=== PATIENT | female | born 1945 | race Caucasian/White ===

== ENCOUNTER 2018-08-27 11:17 | Emergency (ER) | payer MEDICARE, OTHER, SELFPAY ==
[2018-08-27 11:53] VITALS: BP 149/77; PULSE 58; RESP 16; TEMP 37.1; O2SAT 99; BMI 22.2
--- NOTE | 2018-08-27 11:56 | DI.RAD.S_ITS ---
PROCEDURE: XR HIP W PEL IF DONE LT 2V INDICATIONS: felt a pop left hip , now non wt bearing with pain TECHNIQUE: 2 views of the hip were acquired. COMPARISON: None. FINDINGS: Bones: No fractures or dislocations. No suspicious bony lesions. The visualized pelvic ring appears intact. Mild left hip degenerative change. Soft tissues: No suspicious soft tissue calcifications or masses. IMPRESSION: No acute bony abnormality of the left hip. Mild left hip degenerative change. Dictated by: Luis Nguyen M.D. on 08/27/2018 at 12:39 Approved by: Luis Nguyen M.D. on 08/27/2018 at 12:40
--- NOTE | 2018-08-27 12:53 | ED.LOWEXIN ---
HPI - Extremity Injury (Lower) <PRECIOUS Lal - Last Filed: 08/27/18 22:28> General Chief Complaint: Extremity Injury, Lower Stated Complaint: Left hip pain and swelling Time Seen by Provider: 08/27/18 12:27 Source: patient Mode of arrival: ambulatory Limitations: no limitations History of Present Illness HPI Narrative: 73-year-old healthy female that is a nonsmoker for complaint of pain into her left hip. Patient states that she was swaying her hips last night when she felt a pop to her left hip. She reports that she has had increased pain into her left hip and some slight swelling since that timeframe. Increased pain with weight-bearing. She denies any falls. She denies any trauma to the area. Pain is limited to the left hip area. She states that she took a couple ibuprofen last night and the pain decreased last night but she woke up this morning with some increased pain and some slight swelling to the area. No other concerns or complaints at this timeframe. Related Data Allergies Allergy/AdvReac Type Severity Reaction Status Date / Time amoxicillin Allergy Verified 08/27/18 12:12 Review of Systems <PRECIOUS Lal - Last Filed: 08/27/18 22:28> Constitutional Denies chills, Denies fever(s), Denies lethargy and Denies weakness Eyes Denies change in vision, Denies eye discharge, Denies irritation and Denies loss of vision ENT Ears, Nose, Mouth, and Throat: Denies change in voice, Denies neck pain and Denies sore throat Cardiovascular Denies chest pain, Denies irregular heart rhythm, Denies lightheadedness, Denies palpitations, Denies dyspnea, Denies dyspnea on exertion and Denies orthopnea Respiratory Denies cough, Denies dyspnea, Denies dyspnea on exertion and Denies wheezing Gastrointestinal Gastrointestinal: Denies abdominal pain, Denies change in bowel habits, Denies diarrhea, Denies nausea and Denies vomiting Genitourinary Denies hematuria, Denies flank pain, Denies urinary incontinence and Denies urinary urgency Musculoskeletal Denies neck pain Comments: Left hip pain Integumentary/Breasts Denies pruritus, Denies erythema, Denies rash and Denies wounds Neurologic Denies confusion, Denies loss of vision and Denies weakness Psychiatric Denies anxiety, Denies confusion, Denies depression, Denies homicidal ideation and Denies suicidal ideation Endocrine Denies palpitations Hematologic/Lymphatic Denies easy bruising Allergic/Immunologic Denies wheezing Exam <PRECIOUS Lal - Last Filed: 08/27/18 22:28> Initial Vital Signs Initial Vital Signs: Vital Signs Temperature 98.7 F 08/27/18 11:53 Pulse Rate 58 L 08/27/18 11:53 Respiratory Rate 16 08/27/18 11:53 Blood Pressure 149/77 H 08/27/18 11:53 Pulse Oximetry 99 08/27/18 11:53 Const General: cooperative and well developed Nutritional Appearance: well nourished Orientation: alert, awake, oriented x3 and not confused [facility] Mouth: oral mucosae normal and moist mucous membranes Eyes Conjunctivae: conjunctivae normal Sclera: sclerae normal Pupils: PERRL EOM: EOM intact bilaterally Resp Effort & Inspection: normal respiratory effort, able to speak in complete sentences, no respiratory distress and no use of accessory muscles Auscultation: clear to auscultation bilaterally, no rales, no rhonchi and no wheezes Cardio Rate: regular rate Rhythm: regular rhythm Heart Sounds: no click, no gallops, no murmurs and no rubs Pulses: normal peripheral pulses Skin General: no rashes or lesions noted, No jaundice and No petechiae Neuro General: alert, oriented x3 and no focal motor deficits Speech: speech normal Extrem Other: Left hip with no signs of trauma. No ecchymosis. No swelling appreciated on exam. No erythema no open lesions. No deformities. Distal sensation is intact. Distal range of motion is intact. Distal pulses are intact. <Maribel Zamora MD - Last Filed: 08/31/18 12:18> Initial Vital Signs Initial Vital Signs: Vital Signs Temperature 98.7 F 08/27/18 11:53 Pulse Rate 58 L 08/27/18 11:53 Respiratory Rate 16 08/27/18 11:53 Blood Pressure 149/77 H 08/27/18 11:53 Pulse Oximetry 99 08/27/18 11:53 Course <PRECIOUS Lal - Last Filed: 08/27/18 22:28> Orders Ordered: ED Orders 08/27/18 11:56 XR hip w pel if done LT 2V Stat Vital Signs - 8 hr 08/27/18 11:53 Temperature 98.7 F Pulse Rate 58 L Respiratory Rate 16 Blood Pressure 149/77 H Pulse Oximetry 99 <Maribel Zamora MD - Last Filed: 08/31/18 12:18> Orders Ordered: ED Orders 08/27/18 11:56 XR hip w pel if done LT 2V Stat Vital Signs - 8 hr 08/27/18 11:53 Temperature 98.7 F Pulse Rate 58 L Respiratory Rate 16 Blood Pressure 149/77 H Pulse Oximetry 99 MDM - Extremity Injury (Lower) <PRECIOUS Lal - Last Filed: 08/27/18 22:28> Imaging Data Left hip: Radiologist's impression: [address] [address] XRay Report Signed Patient: Mireya Rai EMR#: [id number] : 6Acct:[id number] Age/Sex: 73 / FDate of Service: 08/27/18 Loc: ED Accession Number: [id number] Procedure: XR hip w pel if done LT 2V Ordering Provider: Maribel Zamora MD PROCEDURE: XR HIP W PEL IF DONE LT 2V INDICATIONS: felt a pop left hip , now non wt bearing with pain TECHNIQUE: 2 views of the hip were acquired. COMPARISON: None. FINDINGS: Bones: No fractures or dislocations. No suspicious bony lesions. The visualized pelvic ring appears intact. Mild left hip degenerative change. Soft tissues: No suspicious soft tissue calcifications or masses. IMPRESSION: No acute bony abnormality of the left hip. Mild left hip degenerative change. Dictated by: Luis Nguyen M.D. on 08/27/2018 at 12:39 Approved by: Luis Nguyen M.D. on 08/27/2018 at 12:40 [facility] Narrative Medical decision making narrative: X-ray the left hip was obtained was negative for any acute fractures. X-ray does show minor degenerative changes to the left hip. Signs and symptoms presents as sprain of the left hip. Patient is ambulatory although it does cause her discomfort. She states she is able to ambulate using a cane. [id number] Tylenol or ibuprofen as needed for any discomfort. Rest area. Follow up with primary care provider for re-evaluation. If continued pain that does not resolve may need to have MRI. For any worsening symptoms return to the emergency room. Discharge Plan Departure Patient Disposition: Home Clinical Impression: Sprain of left hip Qualifiers: Encounter type: initial encounter Qualified Code(s): S73.102A - Unspecified sprain of left hip, initial encounter Discharge Date/Time: 08/27/18 13:37 Interventions: ED Discharge Assessment Last Done: 08/27/18 13:36 Instructions: DI for Hip Pain Activity Restrictions/Additional Instructions: X-ray of the left hip was obtained was negative for any acute fractures. Signs and symptoms presents as a sprain to the left hip. Continue to use [id number] Tylenol or Motrin as needed for any discomfort. Rest area. Follow up with her primary care provider. For any worsening symptoms return to the emergency room. The pain does not resolve may need to have advanced imaging such as MRI. Referrals: Warner Rodriguez MD [Primary Care Provider] -
== END 2018-08-27 13:37 | disposition home or self-care (01) ==
PROVIDERS: Emergency Provider Nurse Practitioner Family; PCP Internal Medicine
DX: S73.102A Unspecified sprain of left hip, initial encounter (principal)
CPT/HCPCS: 73502; 99282; 99283

== ENCOUNTER → 2018-09-15 08:41 | Outpatient (CLI) | payer MEDICARE, OTHER, SELFPAY ==
[2018-09-15 11:03] LABS: Cholesterol 204 mg/dL (140-199); HDL Cholesterol 78 mg/dL (40-60); LDL Cholesterol Calculated 110 mg/dL (<100); Triglycerides 78 mg/dL (35-150)
[2018-09-15 11:04] LABS: Vitamin D 25 Hydroxy (D3) 85.9 ng/mL (30.0-100.0)
[2018-09-15 11:18] LABS: Follicle Stimulating Hormone 9.68 mIU/mL
[2018-09-15 11:35] LABS: Testosterone 66.7 ng/dL (5.71-77.0)
[2018-09-21 16:32] LABS: Estradiol 78 pg/mL
== END ==
PROVIDERS: Family Provider Internal Medicine; PCP Internal Medicine; Visit Provider Family Medicine
DX: E55.9 Vitamin D deficiency, unspecified (principal); Z13.220 Encounter for screening for lipoid disorders; N95.9 Unspecified menopausal and perimenopausal disorder
CPT/HCPCS: 36415; 80061; 82306; 82672; 83001; 84403

== ENCOUNTER → 2020-01-05 09:00 | Outpatient (CLI) | payer MEDICARE, OTHER, SELFPAY ==
[2020-01-05 11:06] LABS: Thyroid Stimulating Hormone 3.84 uIU/mL (0.47-4.68)
== END ==
PROVIDERS: Family Provider Internal Medicine; PCP Internal Medicine; Referring Provider Family Medicine; Visit Provider Family Medicine
DX: R53.83 Other fatigue (principal); M85.80 Other specified disorders of bone density and structure, unspecified site
CPT/HCPCS: 36415; 84443

== ENCOUNTER → 2020-07-15 16:06 | Outpatient (CLI) | payer MEDICARE, OTHER, SELFPAY ==
[2020-07-15] MEDS: COVID-19 VACC #1, MRNA(MOD) 100 MCG/0.5 ML VIAL IM (16:17)
== END ==
PROVIDERS: Family Provider Internal Medicine; PCP Family Medicine; Visit Provider Internal Medicine
DX: Z23 Encounter for immunization (principal)
CPT/HCPCS: 0011A; 91301

== ENCOUNTER → 2020-08-13 14:24 | Outpatient (CLI) | payer MEDICARE, OTHER, SELFPAY ==
[2020-08-13] MEDS: COVID-19 VACC #2, MRNA(MOD) 100 MCG/0.5 ML VIAL IM (14:31)
== END ==
PROVIDERS: Family Provider Internal Medicine; PCP Family Medicine; Visit Provider Internal Medicine
DX: Z23 Encounter for immunization (principal)
CPT/HCPCS: 0012A; 91301

== ENCOUNTER 2020-09-03 10:30 | Outpatient (RCR) | payer MEDICARE, OTHER, SELFPAY ==
--- NOTE | 2020-06-12 10:52 | PT.OIE ---
Current Diagnoses Mixed incontinence (06/12/20) Visit Care Team Role Provider Type Avila Prado MD Primary Care Provider Non-Staff Specialty: Family Practice Address: [address] [facility], [place], [address] Email: Warner Rodriguez MD Family Provider Physician Specialty: Internal Medicine Address: [address] [place] [address], [address] Email: [email or web address] Meredith Pinto MD Attending Provider Non-Staff Referring Provider Specialty: Medical Address: [address] [place] [address], [place], [address] Email: Physical Therapy Initial Evaluation PT-OP-A Visit Information Start: 06/12/20 08:53 Freq: Status: Active Protocol: Document 06/12/20 08:55 [facility] (Rec: 06/12/20 08:56 [facility] [id number]) Out-Patient Physical Therapy Visit Information Visit Information Visit Type Initial Evaluation Visit Start Time 09:00 Visit Stop Time 09:45 Total Visit Minutes 45 Visit Number 1 Evaluation Information Evaluation Date 06/12/20 PT-OP-B Current Condition Start: 06/12/20 08:53 Freq: Status: Active Protocol: Document 06/12/20 09:11 [facility] (Rec: 06/12/20 09:26 [facility] [id number]) Current Condition History of Current Condition Onset Date approximately 6 months ago Current Complaints pelvic organ prolapse, bladder and rectum. History of Current Condition pt has been told she is a condidate for a surgical procedure for her pelvic floor . Her second child was almost 10 pounds. She has had this issue off and on for awhile. She had a hysterectomy 5-6 years ago. Her bladder had been prolapsing prior to her surgery. After the hysterectomy her bladder seemed to move back up. She notes she will have to push her organs back up. She was doing water aerobics 3-4 times her week but can't do it now. She has been able to do yoga still and walks regularly. Once a week she will experience some leakage approx a table spoon amount. Has had constipation her whole life and has irritable bowel syndrome. She takes 1 teaspoon of calm and a probiotic. She has been able to be regular. She notes when she sits to urinate she will have to push her bladder backup. History of right knee meniscus repair. Treatment Goals Patient/Caregiver Goals To lift her bladder and rectum to lift up and to strengthen her pelvic floor. PT-OP-I Pelvic Floor Start: 06/12/20 08:53 Freq: Status: Active Protocol: Document 06/12/20 10:20 [facility] (Rec: 06/12/20 10:30 [facility] [id number]) Pelvic Floor Assessment Urine Pelvic Floor Surgery No Urinary Symptoms Falling Out Feeling/Heavy Other Urinary Symptoms minor c/o urinary stress incontinence approximately 1 xm per week. Chief complaits of pelvic organ prolapse and pealiv heaviness Leakage Size Small Leakage Cause Exercise,Lifting Pads Used In 24 Hours 1 Urine Pad Type Panty Liner Pelvic Clock Pelvic Clock 12-3 Atrophy Pelvic Clock 3-6 Atrophy Pelvic Clock 6-9 Atrophy Pelvic Clock 9-12 Atrophy Prolapse Cystocele Grade 2 Rectocele Grade 2 SEMG (uV) Baseline 0 Recruitment Pattern Fair Relaxation Good Holding Fair Stability of Hold Fair SEMG Stability of Rest Good Contraction Ability Voluntary Contraction Weak Voluntary Relaxation Weak Manual Muscle Testing Left 1 Manual Muscle Testing Right 1 Manual Muscle Testing Anterior 1 Manual Muscle Testing Posterior 2 Muscle Endurance (Seconds) 5 PT-OP-Q Treatments Start: 06/12/20 08:53 Freq: Status: Active Protocol: Document 06/12/20 10:20 [facility] (Rec: 06/12/20 10:30 [facility] [id number]) Therapeutic Exercises Supine Exercises elevate the pelvis on yoga block Supine Exercise Name pt educated on elevating the pelvis on a yoga block to take off pressure Comments pt already doing legs up the wall for HEP. pelvic floor long holds Supine Exercise Name pelvic floor long holds Side bilateral Reps/Minutes 10 reps x 10 seconds each PT-OP-T Assessment and Plan Start: 06/12/20 08:53 Freq: Status: Active Protocol: Document 06/12/20 10:20 [facility] (Rec: 06/12/20 10:30 [facility] [id number]) Physical Therapy Assessment Rehab Potential Rehabilitation Potential Excellent Evaluation Complexity Number of Personal Factors/Comorbidities 0 Number of Body Systems Impaired 1-2 Clinical Presentation at Evaluation Stable Impairments Impairments Activity Tolerance,Functional Activities,Pain,Strength,Tone Goals complaints of pelvic organ prolapse Impairment Complaints of pelvic organ prolapse, having to push her bladder back up Short Term Goal (STG) Mireya is educated on pelvic decompression exercises to take pressure off the pelvic floor STG Duration 4 weeks Upper Marker Goal (LTG) Mireya is able to continue with her walking routine without her bladder prolapsing down on her walk. LTG Duration 8 weeks Pelvic floor weakness Impairment Pelvic floor weakness Upper Marker Goal (LTG) Mireya is able to improve her strength of the levator ani by at least one muscle grade to provide improved support to her pelvic organs LTG Duration 8 weeks Decreased endurance of the pelvic floor Impairment Decreased endurance of the pelvic floor Upper Marker Goal (LTG) Mireya is able to sustain a pelvic floor contraction x 10 seconds in supine for 10 reps, LTG Duration 8 weeks Assessment Summary Assessment Mireya is a 75 year old female who presents to Physcial therapy today with c/o pelvic heaviness and pressure due to pelvic organ prolapse. She reports that she has been working on postural exercises and this seems to have helped a little in the past couple of weeks. Mireya reports her symptoms began approximately 6 months ago. She was doing aquatic exercise class regulary and then with the covid 19 pandemic she needed to stop. Mireya does have a past medical history of a hysterectomy 5-6 years ago and 2 vaginal deliveries. She reports at the time of her hysterectomy her bladder was prolapsed. It did seem to get much better though after her hysterectomy until the past 6 months. With evaluation today Mireya is able to activate all areas of her pelvic floor however she is very weak especially on the lateral villanueva of the levator ani. She has difficulty sustaining a pelvic floor contraction past 5 seconds and feels fatigued with 10 reps. She does present with a pelvic organ prolapse, today it felt like a grade 2 for both bladder and rectum. She does note as mentioned above that her symptoms have been better the past few weeks. Mireya denies any fecal incontinence and reports very mild symptoms of stress incontinence. EMG biofeedback was used today to assess pelvic floor strength and endurance. Mireya was educated on pelvic floor anatomy and proper contraction of the pelvic floor. She was also shown how to elevate her pelvis to provide decompression to the pelvic floor. Mireya is a good candidate for pelvic floor therapy. Physical Therapy Plan Frequency and Duration Frequency of Treatment 1x/Week Duration of Treatment 8 Plan of Care Start Date 06/12/20 Plan of Care End Date 08/07/20 Therapeutic Interventions Therapeutic Interventions Home Exercise Program, Neuromuscular Re-education, Patient/Caregiver Education, Self-Care/Home Management, Therapeutic Exercises Modalities Biofeedback
--- NOTE | 2020-06-12 10:52 | PT.OPPOC ---
Physical, Occupational & Speech Therapy At [facility] Current Diagnoses Mixed incontinence (06/12/20) Visit Care Team Role Provider Type Avila Prado MD Primary Care Provider Non-Staff Specialty: Family Practice Address: [address] [place] [address], [address] Email: Warner Rodriguez MD Family Provider Physician Specialty: Internal Medicine Address: [address] [place] [address], [address] Email: [email or web address] Meredith Pinto MD Attending Provider Non-Staff Referring Provider Specialty: Medical Address: [address] [place] [address], [address] Email: Plan Of Care PT-OP-T Assessment and Plan Start: 06/12/20 08:53 Freq: Status: Active Protocol: Document 06/12/20 10:20 [facility] (Rec: 06/12/20 10:30 [facility] [id number]) Physical Therapy Assessment Rehab Potential Rehabilitation Potential Excellent Evaluation Complexity Number of Personal Factors/Comorbidities 0 Number of Body Systems Impaired 1-2 Clinical Presentation at Evaluation Stable Impairments Impairments Activity Tolerance,Functional Activities,Pain,Strength,Tone Goals complaints of pelvic organ prolapse Impairment Complaints of pelvic organ prolapse, having to push her bladder back up Short Term Goal (STG) Mireya is educated on pelvic decompression exercises to take pressure off the pelvic floor STG Duration 4 weeks [employer] Goal (LTG) Mireya is able to continue with her walking routine without her bladder prolapsing down on her walk. 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 She reports that she has been working on postural exercises and this seems to have helped a little in the past couple of weeks. Mireya reports her symptoms began approximately 6 months ago. She was doing aquatic exercise class regularly and then with the covid 19 pandemic she needed to stop. Mireya does have a past medical history of a hysterectomy 5-6 years ago and 2 vaginal deliveries. She reports at the time of her hysterectomy her bladder was prolapsed. It did seem to get much better though after her hysterectomy until the past 6 months. With evaluation today Mireya is able to activate all areas of her pelvic floor however she is very weak especially on the lateral villanueva of the levator ani. She has difficulty sustaining a pelvic floor contraction past 5 seconds and feels fatigued with 10 reps. She does present with a pelvic organ prolapse, today it felt like a grade 2 for both bladder and rectum. She does note as mentioned above that her symptoms have been better the past few weeks. Mireya denies any fecal incontinence and reports very mild symptoms of stress incontinence. EMG biofeedback was used today to assess pelvic floor strength and endurance. Mireya was educated on pelvic floor anatomy and proper contraction of the pelvic floor. She was also shown how to elevate her pelvis to provide decompression to the pelvic floor. Mireya is a good candidate for pelvic floor therapy. Physical Therapy Plan Frequency and Duration Frequency of Treatment 1x/Week Duration of Treatment 8 Plan of Care Start Date 06/12/20 Plan of Care End Date 08/07/20 Therapeutic Interventions Therapeutic Interventions Home Exercise Program, Neuromuscular Re-education, Patient/Caregiver Education, Self-Care/Home Management, Therapeutic Exercises Modalities Biofeedback Plan of Care Dates Plan of Care Start Date 06/12/20 Plan of Care End Date 08/07/20 Electronically Signed by: Lorena Gaffney, PT 06/12/20 [id number] Please Sign and Return: I have reviewed this Plan of Care and certify that the skilled therapy services above are required to meet the patient?s needs. Physician Signature Date Printed Name and Credentials Clinical Instructor Signature Printed Name and Credentials
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
--- NOTE | 2020-07-03 17:42 | PT.OTN ---
Current Diagnoses Mixed incontinence (07/03/20) Physical Therapy Treatment Note PT-OP-A Visit Information Start: 06/12/20 08:53 Freq: Status: Active Protocol: Document 07/03/20 09:00 [facility] (Rec: 07/02/20 11:52 [facility] [id number]) Out-Patient Physical Therapy Visit Information Visit Information Visit Type Treatment Note Visit Start Time 09:00 Visit Stop Time 09:45 Total Visit Minutes 45 Visit Number 2 PT-OP-B Current Condition Start: 06/12/20 08:53 Freq: Status: Active Protocol: Document 06/12/20 09:11 [facility] (Rec: 06/12/20 09:26 [facility] [id number]) Current Condition History of Current Condition Onset Date approximately 6 months ago Current Complaints pelvic organ prolapse, bladder and rectum. History of Current Condition pt has been told she is a candidate for a surgical procedure for her pelvic floor . Her second child was almost 10 pounds. She has had this issue off and on for awhile. She had a hysterectomy 5-6 years ago. Her bladder had been prolapsing prior to her surgery. After the hysterectomy her bladder seemed to move back up. She notes she will have to push her organs back up. She was doing water aerobics 3-4 times her week but can't do it now. She has been able to do yoga still and walks regularly. Once a week she will experience some leakage approx a table spoon amount. Has had constipation her whole life and has irritable bowel syndrome. She takes 1 teaspoon of calm and a probiotic. She has been able to be regular. She notes when she sits to urinate she will have to push her bladder backup. History of right knee meniscus repair. Treatment Goals Patient/Caregiver Goals To lift her bladder and rectum to lift up and to strengthen her pelvic floor. PT-OP-C Subjective Start: 06/12/20 08:53 Freq: Status: Active Protocol: Document 07/03/20 09:00 [facility] (Rec: 07/02/20 11:52 [facility] [id number]) OP-PT Subjective Patient Comments Patient Comments pt says she is amazed that she is not uncomfortable any more . She did two times per day 90 percent of the time. PT-OP-I Pelvic Floor Start: 06/12/20 08:53 Freq: Status: Active Protocol: Document 06/12/20 10:20 [facility] (Rec: 06/12/20 10:30 [facility] [id number]) Pelvic Floor Assessment Urine Pelvic Floor Surgery No Urinary Symptoms Falling Out Feeling/Heavy Other Urinary Symptoms minor c/o urinary stress incontinence approximately 1 xm per week. Chief complaits of pelvic organ prolapse and pealiv heaviness Leakage Size Small Leakage Cause Exercise,Lifting Pads Used In 24 Hours 1 Urine Pad Type Panty Liner Pelvic Clock Pelvic Clock 12-3 Atrophy Pelvic Clock 3-6 Atrophy Pelvic Clock 6-9 Atrophy Pelvic Clock 9-12 Atrophy Prolapse Cystocele Grade 2 Rectocele Grade 2 SEMG (uV) Baseline 0 Recruitment Pattern Fair Relaxation Good Holding Fair Stability of Hold Fair SEMG Stability of Rest Good Contraction Ability Voluntary Contraction Weak Voluntary Relaxation Weak Manual Muscle Testing Left 1 Manual Muscle Testing Right 1 Manual Muscle Testing Anterior 1 Manual Muscle Testing Posterior 2 Muscle Endurance (Seconds) 5 PT-OP-Q Treatments Start: 06/12/20 08:53 Freq: Status: Active Protocol: Document 07/03/20 17:30 [facility] (Rec: 07/03/20 17:42 [facility] [id number]) Therapeutic Exercises Supine Exercises hip ER with theraband Supine Exercise Name hip ER with theraband Reps/Minutes x 10 reps supine ball squeeze with pelvic floor contraction Supine Exercise Name ball squeeze with pelvic floor contraction Reps/Minutes x 10 reps quick pelvic floor contractions Supine Exercise Name quick pelvic floor contractions Reps/Minutes 10 reps 2 sec each elevate the pelvis on yoga block Supine Exercise Name pt educated on elevating the pelvis on a yoga block to take off pressure Comments pt already doing legs up the wall for HEP. pelvic floor long holds Supine Exercise Name pelvic floor long holds Side bilateral Reps/Minutes 10 reps x 10 seconds each PT-OP-T Assessment and Plan Start: 06/12/20 08:53 Freq: Status: Active Protocol: Document 07/03/20 17:30 [facility] (Rec: 07/03/20 17:42 [facility] [id number]) Physical Therapy Assessment Assessment Summary Assessment Good tolerance for EMG biofeedback today for pelvic floor strengthening. Mireya did do better with addition of ball squeeze for increasing pelvic floor recruitment. She is noting decreased complaints of pelvic pressure already with just a few weeks of strengthening Physical Therapy Plan Frequency and Duration Frequency of Treatment 1x/Week Duration of Treatment 8 Plan of Care Start Date 06/12/20 Plan of Care End Date 08/07/20 Therapeutic Interventions Therapeutic Interventions Home Exercise Program, Neuromuscular Re-education, Patient/Caregiver Education, Self-Care/Home Management, Therapeutic Exercises Modalities Biofeedback Next Visit Focus/Plan Next Note Type Treatment Note Next Visit Plan work on pelvic floor endurance and begin to work on pelvic floor recruitment with sit to stand and squatting
--- NOTE | 2020-07-09 11:29 | PT.OTN ---
Current Diagnoses Mixed incontinence (07/09/20) Physical Therapy Treatment Note PT-OP-A Visit Information Start: 06/12/20 08:53 Freq: Status: Active Protocol: Document 07/09/20 09:47 [facility] (Rec: 07/09/20 09:51 [facility] [id number]) Out-Patient Physical Therapy Visit Information Visit Information Visit Type Treatment Note Visit Start Time 09:45 Visit Stop Time 10:30 Total Visit Minutes 45 Visit Number 3 PT-OP-B Current Condition Start: 06/12/20 08:53 Freq: Status: Active Protocol: Document 06/12/20 09:11 [facility] (Rec: 06/12/20 09:26 [facility] [id number]) Current Condition History of Current Condition Onset Date approximately 6 months ago Current Complaints pelvic organ prolapse, bladder and rectum. History of Current Condition pt has been told she is a condidate for a surgical procedure for her pelvic floor . Her second child was almost 10 pounds. She has had this issue off and on for awhile. She had a hysterectomy 5-6 years ago. Her bladder had been prolapsing prior to her surgery. After the hysterectomy her bladder seemed to move back up. She notes she will have to push her organs back up. She was doing water aerobics 3-4 times her week but can't do it now. She has been able to do yoga still and walks regularly. Once a week she will experience some leakage approx a table spoon amount. Has had constipation her whole life and has irritable bowel syndrome. She takes 1 teaspoon of calm and a probiotic. She has been able to be regular. She notes when she sits to urinate she will have to push her bladder backup. History of right knee meniscus repair. Treatment Goals Patient/Caregiver Goals To lift her bladder and rectum to lift up and to strengthen her pelvic floor. PT-OP-C Subjective Start: 06/12/20 08:53 Freq: Status: Active Protocol: Document 07/09/20 09:47 [facility] (Rec: 07/09/20 09:51 [facility] [id number]) OP-PT Subjective Patient Comments Patient Comments pt reports her pelvic floor is feeling good. Some days are better than others. Has been for a couple of walks. PT-OP-I Pelvic Floor Start: 06/12/20 08:53 Freq: Status: Active Protocol: Document 06/12/20 10:20 [facility] (Rec: 06/12/20 10:30 [facility] [id number]) Pelvic Floor Assessment Urine Pelvic Floor Surgery No Urinary Symptoms Falling Out Feeling/Heavy Other Urinary Symptoms minor c/o urinary stress incontinence approximately 1 xm per week. Chief complaits of pelvic organ prolapse and pealiv heaviness Leakage Size Small Leakage Cause Exercise,Lifting Pads Used In 24 Hours 1 Urine Pad Type Panty Liner Pelvic Clock Pelvic Clock 12-3 Atrophy Pelvic Clock 3-6 Atrophy Pelvic Clock 6-9 Atrophy Pelvic Clock 9-12 Atrophy Prolapse Cystocele Grade 2 Rectocele Grade 2 SEMG (uV) Baseline 0 Recruitment Pattern Fair Relaxation Good Holding Fair Stability of Hold Fair SEMG Stability of Rest Good Contraction Ability Voluntary Contraction Weak Voluntary Relaxation Weak Manual Muscle Testing Left 1 Manual Muscle Testing Right 1 Manual Muscle Testing Anterior 1 Manual Muscle Testing Posterior 2 Muscle Endurance (Seconds) 5 PT-OP-Q Treatments Start: 06/12/20 08:53 Freq: Status: Active Protocol: Document 07/09/20 11:24 [facility] (Rec: 07/09/20 11:29 [facility] [id number]) Therapeutic Exercises Supine Exercises EMG templates for eccentric control Supine Exercise Name EMG templates for eccentric control Comments pt has difficulty with eccentric control hip ER with theraband Supine Exercise Name hip ER with theraband Reps/Minutes x 20 reps supine ball squeeze with pelvic floor contraction Supine Exercise Name ball squeeze with pelvic floor contraction Reps/Minutes x 10 reps Comments with EMG quick pelvic floor contractions Supine Exercise Name quick pelvic floor contractions Reps/Minutes 10 reps 2 sec each elevate the pelvis on yoga block Supine Exercise Name pt educated on elevating the pelvis on a yoga block to take off pressure Comments pt already doing legs up the wall for HEP. pelvic floor long holds Supine Exercise Name pelvic floor long holds Side bilateral Reps/Minutes 10 reps x 10 seconds each Sitting Exercises sit-stand exercise Reps/Minutes pt to start doing whenever she transfers from sit-stand at home Comments with pelvic floor contraction. PT-OP-T Assessment and Plan Start: 06/12/20 08:53 Freq: Status: Active Protocol: Document 07/09/20 11:24 [facility] (Rec: 07/09/20 11:29 [facility] [id number]) Physical Therapy Assessment Assessment Summary Assessment Mireya does much better with pelvis elevated and can feel the contraction better. I did start her with sit-stand with pelvic floor contractions and templates for eccentric control Physical Therapy Plan Frequency and Duration Frequency of Treatment 1x/Week Duration of Treatment 8 Plan of Care Start Date 06/12/20 Plan of Care End Date 08/07/20 Therapeutic Interventions Therapeutic Interventions Home Exercise Program, Neuromuscular Re-education, Patient/Caregiver Education, Self-Care/Home Management, Therapeutic Exercises Modalities Biofeedback Next Visit Focus/Plan Next Note Type Treatment Note Next Visit Plan continue to work on eccentric control and bracing with the pelvic floor with sit-stand and lifting activities.
--- NOTE | 2020-07-16 10:28 | PT.OTN ---
Current Diagnoses Mixed incontinence (07/16/20) Physical Therapy Treatment Note PT-OP-A Visit Information Start: 06/12/20 08:53 Freq: Status: Active Protocol: Document 07/16/20 09:48 [facility] (Rec: 07/16/20 09:57 [facility] [id number]) Out-Patient Physical Therapy Visit Information Visit Information Visit Type Treatment Note Visit Start Time 09:51 Visit Stop Time 10:30 Total Visit Minutes 39 Visit Number 4 PT-OP-B Current Condition Start: 06/12/20 08:53 Freq: Status: Active Protocol: Document 06/12/20 09:11 [facility] (Rec: 06/12/20 09:26 [facility] [id number]) Current Condition History of Current Condition Onset Date approximately 6 months ago Current Complaints pelvic organ prolapse, bladder and rectum. History of Current Condition pt has been told she is a condidate for a surgical procedure for her pelvic floor . Her second child was almost 10 pounds. She has had this issue off and on for awhile. She had a hysterectomy 5-6 years ago. Her bladder had been prolapsing prior to her surgery. After the hysterectomy her bladder seemed to move back up. She notes she will have to push her organs back up. She was doing water aerobics 3-4 times her week but can't do it now. She has been able to do yoga still and walks regularly. Once a week she will experience some leakage approx a table spoon amount. Has had constipation her whole life and has irritable bowel syndrome. She takes 1 teaspoon of calm and a probiotic. She has been able to be regular. She notes when she sits to urinate she will have to push her bladder backup. History of right knee meniscus repair. Treatment Goals Patient/Caregiver Goals To lift her bladder and rectum to lift up and to strengthen her pelvic floor. PT-OP-C Subjective Start: 06/12/20 08:53 Freq: Status: Active Protocol: Document 07/16/20 09:48 [facility] (Rec: 07/16/20 09:57 [facility] [id number]) OP-PT Subjective Patient Comments Patient Comments helped her grandson move this past weekend and only lifted two samll boxes. She feels like she may be at a plateau. She had a day when she was more constipated and felt pelvic pressure. PT-OP-I Pelvic Floor Start: 06/12/20 08:53 Freq: Status: Active Protocol: Document 06/12/20 10:20 [facility] (Rec: 06/12/20 10:30 [facility] [id number]) Pelvic Floor Assessment Urine Pelvic Floor Surgery No Urinary Symptoms Falling Out Feeling/Heavy Other Urinary Symptoms minor c/o urinary stress incontinence approximately 1 xm per week. Chief complaits of pelvic organ prolapse and pealiv heaviness Leakage Size Small Leakage Cause Exercise,Lifting Pads Used In 24 Hours 1 Urine Pad Type Panty Liner Pelvic Clock Pelvic Clock 12-3 Atrophy Pelvic Clock 3-6 Atrophy Pelvic Clock 6-9 Atrophy Pelvic Clock 9-12 Atrophy Prolapse Cystocele Grade 2 Rectocele Grade 2 SEMG (uV) Baseline 0 Recruitment Pattern Fair Relaxation Good Holding Fair Stability of Hold Fair SEMG Stability of Rest Good Contraction Ability Voluntary Contraction Weak Voluntary Relaxation Weak Manual Muscle Testing Left 1 Manual Muscle Testing Right 1 Manual Muscle Testing Anterior 1 Manual Muscle Testing Posterior 2 Muscle Endurance (Seconds) 5 PT-OP-Q Treatments Start: 06/12/20 08:53 Freq: Status: Active Protocol: Document 07/16/20 10:13 [facility] (Rec: 07/16/20 10:23 [facility] [id number]) Therapeutic Exercises Supine Exercises bridge with hip ER Supine Exercise Name bridge with hip ER Reps/Minutes x 10 reps EMG templates for eccentric control Supine Exercise Name EMG templates for eccentric control Comments pt has difficulty with eccentric control hip ER with theraband Supine Exercise Name hip ER with theraband Reps/Minutes x 20 reps supine ball squeeze with pelvic floor contraction Supine Exercise Name ball squeeze with pelvic floor contraction Reps/Minutes x 10 reps Comments with EMG quick pelvic floor contractions Supine Exercise Name quick pelvic floor contractions Reps/Minutes 10 reps 2 sec each pelvic floor long holds Supine Exercise Name pelvic floor long holds Side bilateral Reps/Minutes 10 reps x 10 seconds each Sitting Exercises sit-stand exercise Comments pt to work on at home PT-OP-T Assessment and Plan Start: 06/12/20 08:53 Freq: Status: Active Protocol: Document 07/16/20 10:23 [facility] (Rec: 07/16/20 10:25 [facility] [id number]) Physical Therapy Assessment Assessment Summary Assessment improved endurance of the pelvic floor today with average of 7.0 uv Physical Therapy Plan Frequency and Duration Frequency of Treatment 1x/Week Duration of Treatment 8 Plan of Care Start Date 06/12/20 Plan of Care End Date 08/07/20 Next Visit Focus/Plan Next Note Type Treatment Note Next Visit Plan continue to work on eccentric control and bracing with the pelvic floor with sit-stand and lifting activities. Trial of NMES next visit as pt is looking into purchasing the yarlap.
--- NOTE | 2020-07-23 10:23 | PT.OTN ---
Current Diagnoses Mixed incontinence (07/23/20) Physical Therapy Treatment Note PT-OP-A Visit Information Start: 06/12/20 08:53 Freq: Status: Active Protocol: Document 07/23/20 09:50 [facility] (Rec: 07/23/20 09:52 [facility] [id number]) Out-Patient Physical Therapy Visit Information Visit Information Visit Type Treatment Note Visit Start Time 09:50 Visit Stop Time 10:30 Total Visit Minutes 40 Visit Number 5 PT-OP-B Current Condition Start: 06/12/20 08:53 Freq: Status: Active Protocol: Document 06/12/20 09:11 [facility] (Rec: 06/12/20 09:26 [facility] [id number]) Current Condition History of Current Condition Onset Date approximately 6 months ago Current Complaints pelvic organ prolapse, bladder and rectum. History of Current Condition pt has been told she is a condidate for a surgical procedure for her pelvic floor . Her second child was almost 10 pounds. She has had this issue off and on for awhile. She had a hysterectomy 5-6 years ago. Her bladder had been prolapsing prior to her surgery. After the hysterectomy her bladder seemed to move back up. She notes she will have to push her organs back up. She was doing water aerobics 3-4 times her week but can't do it now. She has been able to do yoga still and walks regularly. Once a week she will experience some leakage approx a table spoon amount. Has had constipation her whole life and has irritable bowel syndrome. She takes 1 teaspoon of calm and a probiotic. She has been able to be regular. She notes when she sits to urinate she will have to push her bladder backup. History of right knee meniscus repair. Treatment Goals Patient/Caregiver Goals To lift her bladder and rectum to lift up and to strengthen her pelvic floor. PT-OP-C Subjective Start: 06/12/20 08:53 Freq: Status: Active Protocol: Document 07/23/20 09:50 [facility] (Rec: 07/23/20 09:52 [facility] [id number]) OP-PT Subjective Patient Comments Patient Comments pt has been going up and down stairs a lot and is really paying attention to her core. She only noted one time that she had some pressure when she was carrying a pedistal PT-OP-I Pelvic Floor Start: 06/12/20 08:53 Freq: Status: Active Protocol: Document 06/12/20 10:20 [facility] (Rec: 06/12/20 10:30 [facility] [id number]) Pelvic Floor Assessment Urine Pelvic Floor Surgery No Urinary Symptoms Falling Out Feeling/Heavy Other Urinary Symptoms minor c/o urinary stress incontinence approximately 1 xm per week. Chief complaits of pelvic organ prolapse and pealiv heaviness Leakage Size Small Leakage Cause Exercise,Lifting Pads Used In 24 Hours 1 Urine Pad Type Panty Liner Pelvic Clock Pelvic Clock 12-3 Atrophy Pelvic Clock 3-6 Atrophy Pelvic Clock 6-9 Atrophy Pelvic Clock 9-12 Atrophy Prolapse Cystocele Grade 2 Rectocele Grade 2 SEMG (uV) Baseline 0 Recruitment Pattern Fair Relaxation Good Holding Fair Stability of Hold Fair SEMG Stability of Rest Good Contraction Ability Voluntary Contraction Weak Voluntary Relaxation Weak Manual Muscle Testing Left 1 Manual Muscle Testing Right 1 Manual Muscle Testing Anterior 1 Manual Muscle Testing Posterior 2 Muscle Endurance (Seconds) 5 PT-OP-Q Treatments Start: 06/12/20 08:53 Freq: Status: Active Protocol: Document 07/23/20 09:52 [facility] (Rec: 07/23/20 10:08 [facility] [id number]) Therapeutic Exercises Supine Exercises bridge with hip ER Supine Exercise Name bridge with hip ER Reps/Minutes x 10 reps EMG templates for eccentric control Supine Exercise Name EMG templates for eccentric control Comments pt has difficulty with eccentric control hip ER with theraband Supine Exercise Name hip ER with theraband Reps/Minutes x 20 reps supine ball squeeze with pelvic floor contraction Supine Exercise Name ball squeeze with pelvic floor contraction Reps/Minutes x 10 reps Comments with EMG quick pelvic floor contractions Supine Exercise Name quick pelvic floor contractions Reps/Minutes 10 reps 2 sec each elevate the pelvis on yoga block Supine Exercise Name pt educated on elevating the pelvis on a yoga block to take off pressure Comments pt already doing legs up the wall for HEP. pelvic floor long holds Supine Exercise Name pelvic floor long holds Side bilateral Reps/Minutes 10 reps x 10 seconds each Sitting Exercises sit-stand exercise Comments pt to work on at home Neuro Re-Education Treatment Other Activities NMES Details NMES for the pelvic floor Reps/Duration 10 min Comments level 25 pt has good tolerance for NMES PT-OP-T Assessment and Plan Start: 06/12/20 08:53 Freq: Status: Active Protocol: Document 07/23/20 09:52 [facility] (Rec: 07/23/20 10:08 [facility] [id number]) Physical Therapy Assessment Assessment Summary Assessment pt may benefit from NMES for home use. Rental form was given to her today. She is also getting a testerone and estrogren suppository. Her average on EMG biofeedback is 9.6 and 15.6 max Physical Therapy Plan Frequency and Duration Frequency of Treatment 1x/Week Duration of Treatment 8 Plan of Care Start Date 06/12/20 Plan of Care End Date 08/07/20 Therapeutic Interventions Therapeutic Interventions Home Exercise Program, Neuromuscular Re-education, Patient/Caregiver Education, Self-Care/Home Management, Therapeutic Exercises Modalities Biofeedback Next Visit Focus/Plan Next Note Type Treatment Note Next Visit Plan continue to work on eccentric control and bracing with the pelvic floor with sit-stand and lifting activities. Trial of NMES next visit as pt is looking into purchasing the yarlap.
--- NOTE | 2020-07-23 11:48 | PT.OTN ---
Current Diagnoses Mixed incontinence (07/23/20) Physical Therapy Treatment Note PT-OP-A Visit Information Start: 06/12/20 08:53 Freq: Status: Active Protocol: Document 07/23/20 09:50 REPLACED BY [facility] (Rec: 07/23/20 09:52 REPLACED BY [facility] [id number]) Out-Patient Physical Therapy Visit Information Visit Information Visit Type Treatment Note Visit Start Time 09:50 Visit Stop Time 10:30 Total Visit Minutes 40 Visit Number 5 PT-OP-B Current Condition Start: 06/12/20 08:53 Freq: Status: Active Protocol: Document 06/12/20 09:11 REPLACED BY [facility] (Rec: 06/12/20 09:26 REPLACED BY [facility] [id number]) Current Condition History of Current Condition Onset Date approximately 6 months ago Current Complaints pelvic organ prolapse, bladder and rectum. History of Current Condition pt has been told she is a candidate for a surgical procedure for her pelvic floor . Her second child was almost 10 pounds. She has had this issue off and on for awhile. She had a hysterectomy 5-6 years ago. Her bladder had been prolapsing prior to her surgery. After the hysterectomy her bladder seemed to move back up. She notes she will have to push her organs back up. She was doing water aerobics 3-4 times her week but can't do it now. She has been able to do yoga still and walks regularly. Once a week she will experience some leakage approx a table spoon amount. Has had constipation her whole life and has irritable bowel syndrome. She takes 1 teaspoon of calm and a probiotic. She has been able to be regular. She notes when she sits to urinate she will have to push her bladder backup. History of right knee meniscus repair. Treatment Goals Patient/Caregiver Goals To lift her bladder and rectum to lift up and to strengthen her pelvic floor. PT-OP-C Subjective Start: 06/12/20 08:53 Freq: Status: Active Protocol: Document 07/23/20 09:50 REPLACED BY [facility] (Rec: 07/23/20 09:52 REPLACED BY [facility] [id number]) OP-PT Subjective Patient Comments Patient Comments pt has been going up and down stairs a lot and is really paying attention to her core. She only noted one time that she had some pressure when she was carrying a pedistal PT-OP-I Pelvic Floor Start: 12/24/20 08:53 Freq: Status: Active Protocol: Document 06/12/20 10:20 [facility] (Rec: 06/12/20 10:30 [facility] [id number]) Pelvic Floor Assessment Urine Pelvic Floor Surgery No Urinary Symptoms Falling Out Feeling/Heavy Other Urinary Symptoms minor c/o urinary stress incontinence approximately 1 xm per week. Chief complaints of pelvic organ prolapse and pelvic heaviness Leakage Size Small Leakage Cause Exercise,Lifting Pads Used In 24 Hours 1 Urine Pad Type Panty Liner Pelvic Clock Pelvic Clock 12-3 Atrophy Pelvic Clock 3-6 Atrophy Pelvic Clock 6-9 Atrophy Pelvic Clock 9-12 Atrophy Prolapse Cystocele Grade 2 Rectocele Grade 2 SEMG (uV) Baseline 0 Recruitment Pattern Fair Relaxation Good Holding Fair Stability of Hold Fair SEMG Stability of Rest Good Contraction Ability Voluntary Contraction Weak Voluntary Relaxation Weak Manual Muscle Testing Left 1 Manual Muscle Testing Right 1 Manual Muscle Testing Anterior 1 Manual Muscle Testing Posterior 2 Muscle Endurance (Seconds) 5 PT-OP-Q Treatments Start: 06/12/20 08:53 Freq: Status: Active Protocol: Document 07/23/20 09:52 [facility] (Rec: 07/23/20 10:08 [facility] [id number]) Therapeutic Exercises Supine Exercises bridge with hip ER Supine Exercise Name bridge with hip ER Reps/Minutes x 10 reps EMG templates for eccentric control Supine Exercise Name EMG templates for eccentric control Comments pt has difficulty with eccentric control hip ER with theraband Supine Exercise Name hip ER with theraband Reps/Minutes x 20 reps supine ball squeeze with pelvic floor contraction Supine Exercise Name ball squeeze with pelvic floor contraction Reps/Minutes x 10 reps Comments with EMG quick pelvic floor contractions Supine Exercise Name quick pelvic floor contractions Reps/Minutes 10 reps 2 sec each elevate the pelvis on yoga block Supine Exercise Name pt educated on elevating the pelvis on a yoga block to take off pressure Comments pt already doing legs up the wall for HEP. pelvic floor long holds Supine Exercise Name pelvic floor long holds Side bilateral Reps/Minutes 10 reps x 10 seconds each Sitting Exercises sit-stand exercise Comments pt to work on at home Neuro Re-Education Treatment Other Activities NMES Details NMES for the pelvic floor Reps/Duration 10 min Comments level 25 pt has good tolerance for NMES PT-OP-T Assessment and Plan Start: 06/12/20 08:53 Freq: Status: Active Protocol: Document 07/23/20 09:52 [facility] (Rec: 07/23/20 10:08 REPLACED BY [facility] [id number]) Physical Therapy Assessment Assessment Summary Assessment pt may benefit from NMES for home use. Rental form was given to her today. She is also getting a testosterone and estrogen suppository. Her average on EMG biofeedback is 9.6 and 15.6 max Physical Therapy Plan Frequency and Duration Frequency of Treatment 1x/Week Duration of Treatment 8 Plan of Care Start Date 06/12/20 Plan of Care End Date 08/07/20 Therapeutic Interventions Therapeutic Interventions Home Exercise Program, Neuromuscular Re-education, Patient/Caregiver Education, Self-Care/Home Management, Therapeutic Exercises Modalities Biofeedback Next Visit Focus/Plan Next Note Type Treatment Note Next Visit Plan continue to work on eccentric control and bracing with the pelvic floor with sit-stand and lifting activities. Trial of NMES next visit as pt is looking into purchasing the [employer].
--- NOTE | 2020-07-30 11:44 | PT.OTN ---
Current Diagnoses Mixed incontinence (07/30/20) Physical Therapy Treatment Note PT-OP-A Visit Information Start: 06/12/20 08:53 Freq: Status: Active Protocol: Document 07/30/20 09:50 [facility] (Rec: 07/30/20 09:49 [facility] [id number]) Out-Patient Physical Therapy Visit Information Visit Information Visit Type Treatment Note Visit Start Time 09:50 Visit Stop Time 10:30 Total Visit Minutes 40 Visit Number 6 PT-OP-B Current Condition Start: 06/12/20 08:53 Freq: Status: Active Protocol: Document 06/12/20 09:11 [facility] (Rec: 06/12/20 09:26 [facility] [id number]) Current Condition History of Current Condition Onset Date approximately 6 months ago Current Complaints pelvic organ prolapse, bladder and rectum. History of Current Condition pt has been told she is a condidate for a surgical procedure for her pelvic floor . Her second child was almost 10 pounds. She has had this issue off and on for awhile. She had a hysterectomy 5-6 years ago. Her bladder had been prolapsing prior to her surgery. After the hysterectomy her bladder seemed to move back up. She notes she will have to push her organs back up. She was doing water aerobics 3-4 times her week but can't do it now. She has been able to do yoga still and walks regularly. Once a week she will experience some leakage approx a table spoon amount. Has had constipation her whole life and has irritable bowel syndrome. She takes 1 teaspoon of calm and a probiotic. She has been able to be regular. She notes when she sits to urinate she will have to push her bladder backup. History of right knee meniscus repair. Treatment Goals Patient/Caregiver Goals To lift her bladder and rectum to lift up and to strengthen her pelvic floor. PT-OP-C Subjective Start: 06/12/20 08:53 Freq: Status: Active Protocol: Document 07/30/20 09:50 [facility] (Rec: 07/30/20 09:56 [facility] [id number]) OP-PT Subjective Patient Comments Patient Comments Mireya reports she got her hormone replacement yesterday. Testestorone cream and estrogen suppository. She did feel like she had more pelvic pressure this week. PT-OP-I Pelvic Floor Start: 06/12/20 08:53 Freq: Status: Active Protocol: Document 06/12/20 10:20 [facility] (Rec: 06/12/20 10:30 [facility] [id number]) Pelvic Floor Assessment Urine Pelvic Floor Surgery No Urinary Symptoms Falling Out Feeling/Heavy Other Urinary Symptoms minor c/o urinary stress incontinence approximately 1 xm per week. Chief complaits of pelvic organ prolapse and pealiv heaviness Leakage Size Small Leakage Cause Exercise,Lifting Pads Used In 24 Hours 1 Urine Pad Type Panty Liner Pelvic Clock Pelvic Clock 12-3 Atrophy Pelvic Clock 3-6 Atrophy Pelvic Clock 6-9 Atrophy Pelvic Clock 9-12 Atrophy Prolapse Cystocele Grade 2 Rectocele Grade 2 SEMG (uV) Baseline 0 Recruitment Pattern Fair Relaxation Good Holding Fair Stability of Hold Fair SEMG Stability of Rest Good Contraction Ability Voluntary Contraction Weak Voluntary Relaxation Weak Manual Muscle Testing Left 1 Manual Muscle Testing Right 1 Manual Muscle Testing Anterior 1 Manual Muscle Testing Posterior 2 Muscle Endurance (Seconds) 5 PT-OP-Q Treatments Start: 06/12/20 08:53 Freq: Status: Active Protocol: Document 07/30/20 09:50 [facility] (Rec: 07/30/20 10:08 [facility] [id number]) Therapeutic Exercises Supine Exercises bridge with hip ER Supine Exercise Name bridge with hip ER Reps/Minutes x 10 reps EMG templates for eccentric control Supine Exercise Name EMG templates for eccentric control Comments pt has difficulty with eccentric control hip ER with theraband Supine Exercise Name hip ER with theraband Reps/Minutes x 20 reps supine ball squeeze with pelvic floor contraction Supine Exercise Name ball squeeze with pelvic floor contraction Reps/Minutes x 10 reps Comments with EMG quick pelvic floor contractions Supine Exercise Name quick pelvic floor contractions Reps/Minutes 10 reps 2 sec each pelvic floor long holds Supine Exercise Name pelvic floor long holds Side bilateral Reps/Minutes 10 reps x 10 seconds each Neuro Re-Education Treatment Other Activities NMES Details NMES Reps/Duration 10 min Comments level 28 today PT-OP-T Assessment and Plan Start: 06/12/20 08:53 Freq: Status: Active Protocol: Document 07/30/20 09:50 [facility] (Rec: 07/30/20 09:56 [facility] [id number]) Physical Therapy Plan Frequency and Duration Frequency of Treatment 1x/Week Duration of Treatment 8 Plan of Care Start Date 06/12/20 Plan of Care End Date 08/07/20 Therapeutic Interventions Therapeutic Interventions Home Exercise Program, Neuromuscular Re-education, Patient/Caregiver Education, Self-Care/Home Management, Therapeutic Exercises Modalities Biofeedback Next Visit Focus/Plan Next Note Type Treatment Note Next Visit Plan continue to work on eccentric control and bracing with the pelvic floor with sit-stand and lifting activities.
--- NOTE | 2020-08-06 13:11 | PT.OTN ---
Current Diagnoses Mixed incontinence (08/06/20) Physical Therapy Treatment Note PT-OP-A Visit Information Start: 06/12/20 08:53 Freq: Status: Active Protocol: Document 08/06/20 09:53 [facility] (Rec: 08/06/20 09:57 [facility] [id number]) Out-Patient Physical Therapy Visit Information Visit Information Visit Type Treatment Note Visit Start Time 09:52 Visit Stop Time 10:30 Total Visit Minutes 38 Visit Number 7 PT-OP-B Current Condition Start: 06/12/20 08:53 Freq: Status: Active Protocol: Document 06/12/20 09:11 [facility] (Rec: 06/12/20 09:26 [facility] [id number]) Current Condition History of Current Condition Onset Date approximately 6 months ago Current Complaints pelvic organ prolapse, bladder and rectum. History of Current Condition pt has been told she is a condidate for a surgical procedure for her pelvic floor . Her second child was almost 10 pounds. She has had this issue off and on for awhile. She had a hysterectomy 5-6 years ago. Her bladder had been prolapsing prior to her surgery. After the hysterectomy her bladder seemed to move back up. She notes she will have to push her organs back up. She was doing water aerobics 3-4 times her week but can't do it now. She has been able to do yoga still and walks regularly. Once a week she will experience some leakage approx a table spoon amount. Has had constipation her whole life and has irritable bowel syndrome. She takes 1 teaspoon of calm and a probiotic. She has been able to be regular. She notes when she sits to urinate she will have to push her bladder backup. History of right knee meniscus repair. Treatment Goals Patient/Caregiver Goals To lift her bladder and rectum to lift up and to strengthen her pelvic floor. PT-OP-C Subjective Start: 06/12/20 08:53 Freq: Status: Active Protocol: Document 08/06/20 09:53 [facility] (Rec: 08/06/20 09:57 [facility] [id number]) OP-PT Subjective Patient Comments Patient Comments hasn't felt anything with the hormone replacement yet. She had a few more days of being uncomfortable and then things got better. PT-OP-I Pelvic Floor Start: 06/12/20 08:53 Freq: Status: Active Protocol: Document 08/06/20 13:10 [facility] (Rec: 08/06/20 13:11 [facility] [id number]) Pelvic Floor Assessment Urine Other Urinary Symptoms Much decreased complaints of heaviness and decreased c/o leakage PT-OP-Q Treatments Start: 06/12/20 08:53 Freq: Status: Active Protocol: Document 08/06/20 10:07 [facility] (Rec: 08/06/20 10:07 [facility] [id number]) Therapeutic Exercises Supine Exercises EMG templates for eccentric control Supine Exercise Name EMG templates for eccentric control Comments pt has difficulty with eccentric control hip ER with theraband Supine Exercise Name hip ER with theraband Reps/Minutes x 20 reps supine ball squeeze with pelvic floor contraction Supine Exercise Name ball squeeze with pelvic floor contraction Reps/Minutes x 10 reps Comments with EMG quick pelvic floor contractions Supine Exercise Name quick pelvic floor contractions Reps/Minutes 10 reps 2 sec each pelvic floor long holds Supine Exercise Name pelvic floor long holds Side bilateral Reps/Minutes 10 reps x 10 seconds each Comments 7.1 and 12.9 max Neuro Re-Education Treatment Other Activities NMES Details NMES Reps/Duration 10 min Comments level 28 today. I faxed paperwork for a MD referral last week and we haven't received that back yet PT-OP-T Assessment and Plan Start: 06/12/20 08:53 Freq: Status: Active Protocol: Document 08/06/20 09:53 [facility] (Rec: 08/06/20 13:10 [facility] [id number]) Physical Therapy Assessment Goals complaints of pelvic organ prolapse Impairment Complaints of pelvic organ prolapse, having to push her bladder back up Short Term Goal (STG) Mireya is educated on pelvic decompression exercises to take pressure off the pelvic floor GOAL MET STG Duration 4 weeks Nursing Home Goal (LTG) Mireya is able to continue with her walking routine without her bladder prolapsing down on her walk. Excellent propress and most of the time Mireya is not feeling pelvic pressure now. She did some heavy lifting a few weeks ago that set her back some but she is much more aware now of the downward pressure on her pelvic floor with lifting heavy objects and she is trying to be careful with this which is helping. LTG Duration 8 weeks Pelvic floor weakness Impairment Pelvic floor weakness Cotton Stomper Goal (LTG) Mireya is able to improve her strength of the levator ani by at least one muscle grade to provide improved support to her pelvic organs excellent progress LTG Duration 8 weeks Decreased endurance of the pelvic floor Impairment Decreased endurance of the pelvic floor Cotton Stomper Goal (LTG) Mireya is able to sustain a pelvic floor contraction x 10 seconds in supine for 10 reps, As of 08/06/20 Mireya is able to sustain a pelvic floor contraction x 10 seconds in supine but standing is still difficult. LTG Duration 8 weeks Assessment Summary Assessment Average pelvic floor contraction was improved today and and Mireya is feeling a bit stronger this week. She would benefit from a home rental NMES. A referral has been sent to her MD. At this point in time she feels good with her home program. She will continue to work on her HEP and follow up in one month with PT Physical Therapy Plan Frequency and Duration Frequency of Treatment 1x/Week Duration of Treatment 8 Plan of Care Start Date 08/06/20 Plan of Care End Date 10/01/20 Therapeutic Interventions Therapeutic Interventions Home Exercise Program, Neuromuscular Re-education, Patient/Caregiver Education, Self-Care/Home Management, Therapeutic Exercises Modalities Biofeedback Next Visit Focus/Plan Next Note Type Treatment Note Next Visit Plan recheck pelvic floor strength next visit and progress HEP to standing dynamic exercises
--- NOTE | 2020-08-06 13:11 | PT.OPPOC ---
Physical, Occupational & Speech Therapy At [facility] Current Diagnoses Mixed incontinence (08/06/20) Visit Care Team Role Provider Type Avila Prado MD Primary Care Provider Non-Staff Specialty: Family Practice Address: [address] [place] [address], [id number] Email: Warner Rodriguez MD Family Provider Physician Specialty: Internal Medicine Address: [address] [place] [address], [id number] Email: [email or web address] Meredith Pinto MD Attending Provider Non-Staff Referring Provider Specialty: Medical Address: [address] [place] [address], [id number] Email: Plan Of Care PT-OP-T Assessment and Plan Start: 06/12/20 08:53 Freq: Status: Active Protocol: Document 08/06/20 09:53 [facility] (Rec: 08/06/20 13:10 [facility] [id number]) Physical Therapy Assessment Goals complaints of pelvic organ prolapse Impairment Complaints of pelvic organ prolapse, having to push her bladder back up Short Term Goal (STG) Mireya is educated on pelvic decompression exercises to take pressure off the pelvic floor GOAL MET STG Duration 4 weeks [facility] Goal (LTG) Mireya is able to continue with her walking routine without her bladder prolapsing down on her walk. Excellent progress and most of the time Mireya is not feeling pelvic pressure now. She did some heavy lifting a few weeks ago that set her back some but she is much more aware now of the downward pressure on her pelvic floor with lifting heavy objects and she is trying to be careful with this which is helping. LTG Duration 8 weeks Pelvic floor weakness Impairment Pelvic floor weakness Can Handler Goal (LTG) Mireya is able to improve her strength of the levator ani by at least one muscle grade to provide improved support to her pelvic organs excellent progress LTG Duration 8 weeks Decreased endurance of the pelvic floor Impairment Decreased endurance of the pelvic floor Can Handler Goal (LTG) Mireya is able to sustain a pelvic floor contraction x 10 seconds in supine for 10 reps, As of 08/06/20 Mireya is able to sustain a pelvic floor contraction x 10 seconds in supine but standing is still difficult. LTG Duration 8 weeks Assessment Summary Assessment Average pelvic floor contraction was improved today and and Mireya is feeling a bit stronger this week. She would benefit from a home rental NMES. A referral has been sent to her MD. At this point in time she feels good with her home program. She will continue to work on her HEP and follow up in one month with PT Physical Therapy Plan Frequency and Duration Frequency of Treatment 1x/Week Duration of Treatment 8 Plan of Care Start Date 08/06/20 Plan of Care End Date 10/01/20 Therapeutic Interventions Therapeutic Interventions Home Exercise Program, Neuromuscular Re-education, Patient/Caregiver Education, Self-Care/Home Management, Therapeutic Exercises Modalities Biofeedback Next Visit Focus/Plan Next Note Type Treatment Note Next Visit Plan recheck pelvic floor strength next visit and progress HEP to standing dynamic exercises Plan of Care Dates Plan of Care Start Date 08/06/20 Plan of Care End Date 10/01/20 Electronically Signed by: Lorena Gaffney, PT 08/06/20 [id number] Please Sign and Return: I have reviewed this Plan of Care and certify that the skilled therapy services above are required to meet the patient?s needs. Physician Signature Date Printed Name and Credentials Clinical Instructor Signature Printed Name and Credentials
--- NOTE | 2020-09-03 14:41 | PT.OTN ---
Current Diagnoses Mixed incontinence (09/03/20) Physical Therapy Treatment Note PT-OP-A Visit Information Start: 06/12/20 08:53 Freq: Status: Active Protocol: Document 09/03/20 10:31 [facility] (Rec: 09/03/20 10:55 [facility] [id number]) Out-Patient Physical Therapy Visit Information Visit Information Visit Type Progress Note Visit Start Time 10:35 Visit Stop Time 11:15 Total Visit Minutes 40 Visit Number 8 PT-OP-B Current Condition Start: 06/12/20 08:53 Freq: Status: Active Protocol: Document 06/12/20 09:11 [facility] (Rec: 06/12/20 09:26 [facility] [id number]) Current Condition History of Current Condition Onset Date approximately 6 months ago Current Complaints pelvic organ prolapse, bladder and rectum. History of Current Condition pt has been told she is a condidate for a surgical procedure for her pelvic floor . Her second child was almost 10 pounds. She has had this issue off and on for awhile. She had a hysterectomy 5-6 years ago. Her bladder had been prolapsing prior to her surgery. After the hysterectomy her bladder seemed to move back up. She notes she will have to push her organs back up. She was doing water aerobics 3-4 times her week but can't do it now. She has been able to do yoga still and walks regularly. Once a week she will experience some leakage approx a table spoon amount. Has had constipation her whole life and has irritable bowel syndrome. She takes 1 teaspoon of calm and a probiotic. She has been able to be regular. She notes when she sits to urinate she will have to push her bladder backup. History of right knee meniscus repair. Treatment Goals Patient/Caregiver Goals To lift her bladder and rectum to lift up and to strengthen her pelvic floor. PT-OP-C Subjective Start: 06/12/20 08:53 Freq: Status: Active Protocol: Document 09/03/20 10:31 [facility] (Rec: 09/03/20 10:55 [facility] [id number]) OP-PT Subjective Patient Comments Patient Comments Taking her hormones and going to the pool. The NMES brought on your vaginal herpes. She notes she has good days and then has 1-2 days per week when the prolapse bothers her. She notes she is 70% more comfortable. PT-OP-I Pelvic Floor Start: 06/12/20 08:53 Freq: Status: Active Protocol: Document 09/03/20 10:57 [facility] (Rec: 09/03/20 11:00 [facility] [id number]) Pelvic Floor Assessment Contraction Ability Manual Muscle Testing Left 2 Manual Muscle Testing Right 2 Manual Muscle Testing Anterior 2 Manual Muscle Testing Posterior 3 Muscle Endurance (Seconds) 10 PT-OP-Q Treatments Start: 06/12/20 08:53 Freq: Status: Active Protocol: Document 09/03/20 11:05 [facility] (Rec: 09/03/20 11:11 [facility] [id number]) Therapeutic Exercises Standing Exercises 5 second hold Standing Exercise Name 5 second hold with 10 second relax Reps/Minutes x 10 PT-OP-T Assessment and Plan Start: 06/12/20 08:53 Freq: Status: Active Protocol: Document 09/03/20 14:34 [facility] (Rec: 09/03/20 14:40 [facility] [id number]) Physical Therapy Assessment Assessment Summary Assessment Mireya is testing stronger in her pelvic floor now but 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 She will try taking her medication for vaginal herpes and then try the NMES again. We progressed to sitting and standing today with pelvic floor contractions and Mireya did really well with this. She is back to water aerobics and feels this is also helping with her strength. SHe is not wanting surgery at this point and is feeling like she is managing her symptoms Physical Therapy Plan Discharge Physical Therapy Discharge Reasons Goals Met
== END 2020-09-12 09:02 | disposition home or self-care (01) ==
LOC: PHYS 10:30
PROVIDERS: Family Provider Internal Medicine; PCP Family Medicine; Referring Provider Urology Female Pelvic Medicine and Reconstructive Surgery; Visit Provider Urology Female Pelvic Medicine and Reconstructive Surgery
DX: N39.46 Mixed incontinence (principal)
CPT/HCPCS: 97110; 97112; 97161; 97164

== ENCOUNTER → 2021-02-24 09:08 | Outpatient (CLI) | payer MEDICARE, OTHER, SELFPAY ==
[2021-02-24 10:07] LABS: Add Manual Diff / Slide Review NO; Basophils Absolute Auto 100 /uL (0-100); Basophils Percent Auto 0.8 % (0-2); Eosinophils Absolute Auto 200 /uL (0-450); Eosinophils Percent Auto 2.1 % (2-4); Hematocrit 43.1 % (36-46); Hemoglobin 14.3 g/dL (12.0-16.0); Lymphocytes Absolute Auto 3000 /uL (1100-4500); Lymphocytes Percent Auto 40.3 % (25-40); Mean Corpuscular HGB Conc 33.2 % (30-36); Mean Corpuscular Hemoglobin 31.6 PG (26-34); Mean Corpuscular Volume 95.3 fL (80-100); Monocytes Absolute Auto 600 /uL (0-900); Monocytes Percent Auto 7.6 % (3-14); Neutrophils Absolute Auto 3700 /uL (1500-7000); Neutrophils Percent Auto 49.2 % (50-75); Platelet Count 241 X10^3/uL (150-400); Red Blood Cell Count 4.52 X10^6/uL (4.0-5.2); Red Cell Distribution Width 13.2 % (11.6-14.8); White Blood Cell Count 7.5 X10^3/uL (4.5-11.0)
[2021-02-24 10:15] LABS: Alanine Aminotransferase 20 IU/L (<35); Albumin 4.1 g/dL (3.5-5.0); Albumin Globulin Ratio 1.5 (1.0-2.8); Alkaline Phosphatase 54 U/L (38-126); Aspartate Aminotransferase 25 IU/L (14-36); BUN Creatinine Ratio 14.8 (6-22); Bilirubin Total 1.2 mg/dL (0.2-1.3); Blood Urea Nitrogen 9 mg/dL (7-17); Calcium 9.2 mg/dL (8.4-10.2); Carbon Dioxide 29 mmol/L (22-32); Chloride 106 mmol/L (98-107); Cholesterol 213 mg/dL (140-199); Estimated Glomerular Filt Rate > 60.0 mL/min (>60); Globulin 2.8 g/dL (1.7-4.1); Glucose 93 mg/dL (80-110); HDL Cholesterol 82 mg/dL (40-60); HEMOLYSIS < 15 (0-50); LDL Cholesterol Calculated 115 mg/dL (<100); Potassium 4.3 mmol/L (3.4-5.1); Sodium 138 mmol/L (137-145); Total Protein 6.9 g/dL (6.3-8.2); Triglycerides 82 mg/dL (35-150)
[2021-02-24 10:48] LABS: Testosterone 36.9 ng/dL (5.71-77.0)
[2021-02-24 11:17] LABS: Free T3, Triiodothyronine Free 4.01 pg/mL (2.77-5.27); Free T4, Direct Thyroxine 1.01 ng/dL (0.78-2.19)
[2021-02-24 11:19] LABS: Follicle Stimulating Hormone 29.3 mIU/mL; Progesterone, Total 0.48 ng/mL
[2021-02-24 11:30] LABS: Thyroid Stimulating Hormone 2.45 uIU/mL (0.47-4.68)
[2021-02-24 11:34] LABS: Estradiol, Total 27.2 pg/mL
== END ==
PROVIDERS: PCP Family Medicine; Referring Provider Naturopath; Visit Provider Naturopath
DX: R53.83 Other fatigue (principal)
CPT/HCPCS: 36415; 80053; 80061; 82670; 83001; 84144; 84403; 84439; 84443; 84481; 85025

== ENCOUNTER 2021-05-20 10:30 | Outpatient (RCR) | payer MEDICARE, OTHER, SELFPAY ==
--- NOTE | 2021-01-08 17:33 | PT.OIE ---
Current Diagnoses Mixed incontinence (01/06/21) Visit Care Team Role Provider Type Avila Pardo MD Primary Care Provider Non-Staff Specialty: Family Practice Address: [address] [place] [address], [place], [address] Email: Meredith Pinto MD Attending Provider Non-Staff Referring Provider Specialty: Medical Address: [address] [place] [address], [place], [address] Email: Physical Therapy Initial Evaluation PT-OP-A Visit Information Start: 01/06/21 11:17 Freq: Status: Active Protocol: Document 01/06/21 11:18 [facility] (Rec: 01/06/21 11:27 [facility] [id number]) Out-Patient Physical Therapy Visit Information Visit Information Visit Type Initial Evaluation Visit Start Time 11:20 Visit Stop Time 12:05 Total Visit Minutes 45 Visit Number 1 Evaluation Information Evaluation Date 01/06/21 PT-OP-B Current Condition Start: 01/06/21 11:17 Freq: Status: Active Protocol: Document 01/06/21 11:15 [facility] (Rec: 01/06/21 11:27 [facility] [id number]) Current Condition History of Current Condition Onset Date symptoms have worsened again in the past couple of months Current Complaints pelvic heaviness and pressure from POP, fecal leakage at night History of Current Condition PT feel like she may end up having the prolapse repaired and wants to do PT again before hand. She has had a few episodes of fecal leakage waking up with it. 1-2 episodes of leaking at night. She also describes episodes of pain in the bladder region. She has been volunteering and standing more and she is wondering if this is contributing to her pain. PT-OP-I Pelvic Floor Start: 01/06/21 11:17 Freq: Status: Active Protocol: Document 01/06/21 11:48 [facility] (Rec: 01/06/21 11:48 [facility] [id number]) Pelvic Floor Assessment Urine Urinary Symptoms Prolapse Other Urinary Symptoms patient describes heaviness from prolaspe, she also reports urinary leakage with strong cough or sneeze and with urge to void Leakage Size Small Bowel Bowel Symptoms Fecal Leakage Other Bowel Symptoms pt has had a couple episodes of waking up in the morning and finding stool leakage Pelvic Clock Pelvic Clock 12-3 Atrophy Pelvic Clock 3-6 Atrophy Pelvic Clock 6-9 Atrophy Pelvic Clock 9-12 Atrophy Prolapse Cystocele Grade 2 Rectocele Grade 1 SEMG (uV) Baseline 0 10 Second Contraction 8.6 Contraction Ability Manual Muscle Testing Left 2 Manual Muscle Testing Right 2 Manual Muscle Testing Anterior 3 Manual Muscle Testing Posterior 2 PT-OP-Q Treatments Start: 01/06/21 11:17 Freq: Status: Active Protocol: Document 01/06/21 11:15 [facility] (Rec: 01/07/21 10:38 [facility] [id number]) Therapeutic Exercises Supine Exercises supine ball squeeze Reps/Minutes 3 x 10 reps hip roll outs with theraband Reps/Minutes 3 x 10 reps pelvic floor long holds Reps/Minutes 10 reps x 10 seconds each 3 xms per day PT-OP-T Assessment and Plan Start: 01/06/21 11:17 Freq: Status: Active Protocol: Document 01/06/21 11:15 [facility] (Rec: 01/07/21 10:38 [facility] [id number]) Physical Therapy Assessment Goals decrease c/o pelvic pressure and heaviness with standing activities [employer] Pilot Goal (LTG) 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[employer] with decreased c/p pelvic pressure with standing activities LTG Duration 8 weeks Improve endurance of the pelvic floor Impairment Decreased endurance of the pelvic floor Correction Goal (LTG) Lissette is able to sustain a pelvic floor contraction in standing and supine for 10 second hold time LTG Duration 8 weeks Improve strength of the pelvic floor Impairment pelvic floor weakness 3/5 MMT Corporate Pilot Goal (LTG) Improve pelvic floor strength by one muscle grade to 4/5 MMT for improved support of the rectum and bladder LTG Duration 8 weeks Assessment Summary Assessment Mireya is a 75 year old female who returns to PT for pelvic floor strengthenng and has c/o pelvic organ prolapse. She has been seen previously in our clinic for pelvic floor strengthening and felt it helped however she notes she hasn't been consistent with the exercises and feels her prolapse has worsened again. 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 She reports a few times that she has experienced fecal incontinence upon waking up in the am. Mireya reports a newer onset of pain around the bladder region. She reports she is working to keep hydrated and to have a daily bowel movement. With examination today both a cyctocele and rectocele are both felt. Mireya is able to facilitate all aspects of her levator ani however she is weak and her rectocele has progressed from last time I saw her in the clinic. Pt would like to restart her exercises and is considering surgical correction in the future. 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 Physical Therapy Plan Frequency and Duration Frequency of Treatment 1x/Week Duration of Treatment 8 Plan of Care Start Date 01/06/21 Plan of Care End Date 03/03/21 Therapeutic Interventions Therapeutic Interventions Home Exercise Program, Neuromuscular Re-education, Self-Care/Home Management,Soft Tissue Mobilization, Therapeutic Exercises Modalities Biofeedback Next Visit Focus/Plan Next Note Type Treatment Note Next Visit Plan Progress pelvic floor strengthening, pelvic decompression exercises, EMG biofeedback for pelvic floor endurance training
--- NOTE | 2021-01-08 17:33 | PT.OPPOC ---
Physical, Occupational & Speech Therapy At [facility] Current Diagnoses Mixed incontinence (01/06/21) Visit Care Team Role Provider Type vAila Prado MD Primary Care Provider Non-Staff Specialty: Family Practice Address: [address] [place] [address], [address] Email: Meredith Pinto MD Attending Provider Non-Staff Referring Provider Specialty: Medical Address: [address] [place] [address], [id number] Email: Plan Of Care PT-OP-T Assessment and Plan Start: 01/06/21 11:17 Freq: Status: Active Protocol: Document 01/06/21 11:15 [facility] (Rec: 01/07/21 10:38 [facility] [email or web address]) Physical Therapy Assessment Goals decrease c/o pelvic pressure and heaviness with standing activities Penitentiary Goal (LTG) 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[employer] with decreased c/p pelvic pressure with standing activities LTG Duration 8 weeks Improve endurance of the pelvic floor Impairment Decreased endurance of the pelvic floor Penitentiary Goal (LTG) Mireya is able to sustain a pelvic floor contraction in standing and supine for 10 second hold time LTG Duration 8 weeks Improve strength of the pelvic floor Impairment pelvic floor weakness 3/5 MMT Sales Development Specialist Goal (LTG) Improve pelvic floor strength by one muscle grade to 4/5 MMT for improved support of the rectum and bladder LTG Duration 8 weeks Assessment Summary Assessment Mireya is a 75 year old female who returns to PT for pelvic floor strengthening and has c/o pelvic organ prolapse. She has been seen previously in our clinic for pelvic floor strengthening and felt it helped however she notes she hasn't been consistent with the exercises and feels her prolapse has worsened again. 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 She reports a few times that she has experienced fecal incontinence upon waking up in the am. Mireya reports a newer onset of pain around the bladder region. She reports she is working to keep hydrated and to have a daily bowel movement. With examination today both a cyctocele and rectocele are both felt. Mireya is able to facilitate all aspects of her levator ani however she is weak and her rectocele has progressed from last time I saw her in the clinic. Pt would like to restart her exercises and is considering surgical correction in the future. 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 Physical Therapy Plan Frequency and Duration Frequency of Treatment 1x/Week Duration of Treatment 8 Plan of Care Start Date 01/06/21 Plan of Care End Date 03/03/21 Therapeutic Interventions Therapeutic Interventions Home Exercise Program, Neuromuscular Re-education, Self-Care/Home Management,Soft Tissue Mobilization, Therapeutic Exercises Modalities Biofeedback Next Visit Focus/Plan Next Note Type Treatment Note Next Visit Plan Progress pelvic floor strengthening, pelvic decompression exercises, EMG biofeedback for pelvic floor endurance training Plan of Care Dates Plan of Care Start Date 01/06/21 Plan of Care End Date 03/03/21 Electronically Signed by: Lorena Gaffney, PT 01/08/21 [id number] Please Sign and Return: I have reviewed this Plan of Care and certify that the skilled therapy services above are required to meet the patient?s needs. Physician Signature Date Printed Name and Credentials Clinical Instructor Signature Printed Name and Credentials
--- NOTE | 2021-02-18 12:00 | PT.OTN ---
Current Diagnoses Mixed incontinence (02/18/21) Physical Therapy Treatment Note PT-OP-A Visit Information Start: 01/06/21 11:17 Freq: Status: Active Protocol: Document 02/18/21 11:23 [facility] (Rec: 02/18/21 11:37 [facility] [id number]) Out-Patient Physical Therapy Visit Information Visit Information Visit Type Treatment Note Visit Start Time 11:15 Visit Stop Time 12:00 Total Visit Minutes 45 Visit Number 2 PT-OP-B Current Condition Start: 01/06/21 11:17 Freq: Status: Active Protocol: Document 01/06/21 11:15 [facility] (Rec: 01/06/21 11:27 [facility] [id number]) Current Condition History of Current Condition Onset Date symptoms have worsened again in the past couple of months Current Complaints pelvic heaviness and pressure from POP, fecal leakage at night History of Current Condition PT feel like she may end up having the prolapse repaired and wants to do PT again before hand. She has had a few episodes of fecal leakage waking up with it. 1-2 episodes of leaking at night. She also describes episodes of pain in the bladder region. She has been volunteering and standing more and she is wondering if this is contributing to her pain. PT-OP-C Subjective Start: 01/06/21 11:17 Freq: Status: Active Protocol: Document 02/18/21 11:23 [facility] (Rec: 02/18/21 11:37 [facility] [id number]) OP-PT Subjective Patient Comments Patient Comments pt has been in [place] this summer, she has been trying to work on her exercises. She did get the julvia cream and she feels like it is helping. She will start hormone replacement this month. PT-OP-I Pelvic Floor Start: 01/06/21 11:17 Freq: Status: Active Protocol: Document 01/06/21 11:48 [facility] (Rec: 01/06/21 11:48 [facility] [id number]) Pelvic Floor Assessment Urine Urinary Symptoms Prolapse Other Urinary Symptoms patient describes heaviness from prolaspe, she also reports urinary leakage with strong cough or sneeze and with urge to void Leakage Size Small Bowel Bowel Symptoms Fecal Leakage Other Bowel Symptoms pt has had a couple episodes of waking up in the morning and finding stool leakage Pelvic Clock Pelvic Clock 12-3 Atrophy Pelvic Clock 3-6 Atrophy Pelvic Clock 6-9 Atrophy Pelvic Clock 9-12 Atrophy Prolapse Cystocele Grade 2 Rectocele Grade 1 SEMG (uV) Baseline 0 10 Second Contraction 8.6 Contraction Ability Manual Muscle Testing Left 2 Manual Muscle Testing Right 2 Manual Muscle Testing Anterior 3 Manual Muscle Testing Posterior 2 PT-OP-Q Treatments Start: 01/06/21 11:17 Freq: Status: Active Protocol: Document 02/18/21 11:23 [facility] (Rec: 02/18/21 11:37 [facility] [id number]) Therapeutic Exercises Supine Exercises quick flicks Reps/Minutes x 10 reps pelvic floor long holds Reps/Minutes 7.9 uv average and 14.2 uv max PT-OP-T Assessment and Plan Start: 01/06/21 11:17 Freq: Status: Active Protocol: Document 02/18/21 11:16 [facility] (Rec: 02/25/21 11:17 [facility] [id number]) Physical Therapy Assessment Assessment Summary Assessment Mireya returns to PT today after not being seein since . SHe would like contined strengthening. She has been out of town this summer. She is planning on having hormone replacement therapy. Physical Therapy Plan Frequency and Duration Frequency of Treatment 1x/Week Duration of Treatment 8 Plan of Care Start Date 01/06/21 Plan of Care End Date 03/03/21 Therapeutic Interventions Therapeutic Interventions Home Exercise Program, Neuromuscular Re-education, Self-Care/Home Management,Soft Tissue Mobilization, Therapeutic Exercises Modalities Biofeedback Next Visit Focus/Plan Next Note Type Treatment Note Next Visit Plan Progress pelvic floor strengthening, pelvic decompression exercises, EMG biofeedback for pelvic floor endurance training
--- NOTE | 2021-02-25 12:21 | PT.OTN ---
Current Diagnoses Mixed incontinence (02/25/21) Physical Therapy Treatment Note PT-OP-A Visit Information Start: 01/06/21 11:17 Freq: Status: Active Protocol: Document 02/25/21 11:19 [facility] (Rec: 02/25/21 11:35 [facility] [id number]) Out-Patient Physical Therapy Visit Information Visit Information Visit Type Progress Note Visit Start Time 11:19 Visit Stop Time 12:00 Total Visit Minutes 41 Visit Number 3 PT-OP-B Current Condition Start: 01/06/21 11:17 Freq: Status: Active Protocol: Document 01/06/21 11:15 [facility] (Rec: 01/06/21 11:27 [facility] [id number]) Current Condition History of Current Condition Onset Date symptoms have worsened again in the past couple of months Current Complaints pelvic heaviness and pressure from POP, fecal leakage at night History of Current Condition PT feel like she may end up having the prolapse repaired and wants to do PT again before hand. She has had a few episodes of fecal leakage waking up with it. 1-2 episodes of leaking at night. She also describes episodes of pain in the bladder region. She has been volunteering and standing more and she is wondering if this is contributing to her pain. PT-OP-C Subjective Start: 01/06/21 11:17 Freq: Status: Active Protocol: Document 02/25/21 11:19 [facility] (Rec: 02/25/21 11:35 [facility] [id number]) OP-PT Subjective Patient Comments Patient Comments everything went well after last visit until 2 days ago. She had been walking quite a bit and was constipated one day and she is not sure if that madea big difference but she felt more pelvic pressure yesterday and the prolapse felt worse again. She also reports her doctor changed the day for her hormone replacement until March. She is trying not to do as much bouncing at the pool but is working on aquatic therapy. PT-OP-I Pelvic Floor Start: 01/06/21 11:17 Freq: Status: Active Protocol: Document 01/06/21 11:48 [facility] (Rec: 01/06/21 11:48 [facility] [id number]) Pelvic Floor Assessment Urine Urinary Symptoms Prolapse Other Urinary Symptoms patient describes heaviness from prolaspe, she also reports urinary leakage with strong cough or sneeze and with urge to void Leakage Size Small Bowel Bowel Symptoms Fecal Leakage Other Bowel Symptoms pt has had a couple episodes of waking up in the morning and finding stool leakage Pelvic Clock Pelvic Clock 12-3 Atrophy Pelvic Clock 3-6 Atrophy Pelvic Clock 6-9 Atrophy Pelvic Clock 9-12 Atrophy Prolapse Cystocele Grade 2 Rectocele Grade 1 SEMG (uV) Baseline 0 10 Second Contraction 8.6 Contraction Ability Manual Muscle Testing Left 2 Manual Muscle Testing Right 2 Manual Muscle Testing Anterior 3 Manual Muscle Testing Posterior 2 PT-OP-Q Treatments Start: 01/06/21 11:17 Freq: Status: Active Protocol: Document 02/25/21 11:19 [facility] (Rec: 02/25/21 12:01 [facility] [id number]) Therapeutic Exercises Supine Exercises templates for eccentric control and coordination Reps/Minutes x 5 each template x 8 min quick flicks Reps/Minutes x 10 reps Comments 25.7 uv max supine ball squeeze Reps/Minutes x 10 reps holding 5 seconds each pelvic floor long holds Reps/Minutes 11.7 average max 26 uv Sidelying Exercises sidelying clam shells Reps/Minutes 2 x 10 each PT-OP-T Assessment and Plan Start: 01/06/21 11:17 Freq: Status: Active Protocol: Document 02/25/21 11:19 [facility] (Rec: 02/25/21 12:21 [facility] [id number]) Physical Therapy Assessment Goals decrease c/o pelvic pressure and heaviness with standing activities Collections Rep Goal (LTG) 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 She will do really well for awhile and then experience a set back LTG Duration 8 weeks Improve endurance of the pelvic floor Impairment Decreased endurance of the pelvic floor Collections Rep Goal (LTG) Lissette is able to sustain a pelvic floor contraction in standing and supine for 10 second hold time Much improved ability to sustain a pelvic floor contraction, working on standing pelvic floor stabilization now LTG Duration 8 weeks Improve strength of the pelvic floor Impairment pelvic floor weakness 3/5 MMT Prison Goal (LTG) Improve pelvic floor strength by one muscle grade to 4/5 MMT for improved support of the rectum and bladder Good progress LTG Duration 8 weeks Assessment Summary Assessment Mireya has only been seen x 2 visits since her 01/06/21 eval. She had been traveling this summer. She is doing better overall with pelvic floor strength however still has intermittent c/o pelvic pressure is intermittent and just this week had a flare up. She has begun to exercise in the pool again and is having hormone replacement therapy in March. She would like to continue with her PT sessions as she feels the biofeedback helps her. Physical Therapy Plan Frequency and Duration Frequency of Treatment 1x/Week Duration of Treatment 8 Plan of Care Start Date 02/25/21 Plan of Care End Date 04/22/21 Therapeutic Interventions Therapeutic Interventions Home Exercise Program, Neuromuscular Re-education, Self-Care/Home Management,Soft Tissue Mobilization, Therapeutic Exercises Modalities Biofeedback Next Visit Focus/Plan Next Note Type Treatment Note Next Visit Plan Progress pelvic floor strengthening, pelvic decompression exercises, EMG biofeedback for pelvic floor endurance training
--- NOTE | 2021-02-25 12:21 | PT.OPPOC ---
Physical, Occupational & Speech Therapy At [facility] Current Diagnoses Mixed incontinence (02/25/21) Visit Care Team Role Provider Type Avila Prado MD Primary Care Provider Non-Staff Specialty: Family Practice Address: [address] [place], [address] Email: Meredith Pinto MD Attending Provider Non-Staff Referring Provider Specialty: Medical Address: [address] [place] [address], [address] Email: Plan Of Care PT-OP-T Assessment and Plan Start: 01/06/21 11:17 Freq: Status: Active Protocol: Document 02/25/21 11:19 [facility] (Rec: 02/25/21 12:21 [facility] [id number]) Physical Therapy Assessment Goals decrease c/o pelvic pressure and heaviness with standing activities Superintendent Commissary Goal (LTG) 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 She will do really well for awhile and then experience a set back LTG Duration 8 weeks Improve endurance of the pelvic floor Impairment Decreased endurance of the pelvic floor Superintendent Commissary Goal (LTG) Lissette is able to sustain a pelvic floor contraction in standing and supine for 10 second hold time Much improved ability to sustain a pelvic floor contraction, working on standing pelvic floor stabilization now LTG Duration 8 weeks Improve strength of the pelvic floor Impairment pelvic floor weakness 3/5 MMT Custodial Goal (LTG) Improve pelvic floor strength by one muscle grade to 4/5 MMT for improved support of the rectum and bladder Good progress LTG Duration 8 weeks Assessment Summary Assessment Mireya has only been seen x 2 visits since her 01/06/21 eval. She had been traveling this summer. She is doing better overall with pelvic floor strength however still has intermittent c/o pelvic pressure is intermittent and just this week had a flare up. She has begun to exercise in the pool again and is having hormone replacement therapy in March. She would like to continue with her PT sessions as she feels the biofeedback helps her. Physical Therapy Plan Frequency and Duration Frequency of Treatment 1x/Week Duration of Treatment 8 Plan of Care Start Date 02/25/21 Plan of Care End Date 04/22/21 Therapeutic Interventions Therapeutic Interventions Home Exercise Program, Neuromuscular Re-education, Self-Care/Home Management,Soft Tissue Mobilization, Therapeutic Exercises Modalities Biofeedback Next Visit Focus/Plan Next Note Type Treatment Note Next Visit Plan Progress pelvic floor strengthening, pelvic decompression exercises, EMG biofeedback for pelvic floor endurance training Plan of Care Dates Plan of Care Start Date 02/25/21 Plan of Care End Date 04/22/21 Electronically Signed by: Lorena Gaffney, PT 02/25/21 [id number] Please Sign and Return: I have reviewed this Plan of Care and certify that the skilled therapy services above are required to meet the patient?s needs. Physician Signature Date Printed Name and Credentials Clinical Instructor Signature Printed Name and Credentials
--- NOTE | 2021-03-12 16:30 | PT.OTN ---
Current Diagnoses Mixed incontinence (03/12/21) Physical Therapy Treatment Note PT-OP-A Visit Information Start: 01/06/21 11:17 Freq: Status: Active Protocol: Document 03/12/21 14:34 [facility] (Rec: 03/12/21 16:06 [facility] [id number]) Out-Patient Physical Therapy Visit Information Visit Information Visit Type Treatment Note Visit Start Time 14:34 Visit Stop Time 15:20 Total Visit Minutes 46 Visit Number 4 PT-OP-B Current Condition Start: 01/06/21 11:17 Freq: Status: Active Protocol: Document 01/06/21 11:15 [facility] (Rec: 01/06/21 11:27 [facility] [id number]) Current Condition History of Current Condition Onset Date symptoms have worsened again in the past couple of months Current Complaints pelvic heaviness and pressure from POP, fecal leakage at night History of Current Condition PT feel like she may end up having the prolapse repaired and wants to do PT again before hand. She has had a few episodes of fecal leakage waking up with it. 1-2 episodes of leaking at night. She also describes episodes of pain in the bladder region. She has been volunteering and standing more and she is wondering if this is contributing to her pain. PT-OP-C Subjective Start: 01/06/21 11:17 Freq: Status: Active Protocol: Document 03/12/21 15:26 [facility] (Rec: 03/12/21 16:06 [facility] [id number]) OP-PT Subjective Patient Comments Patient Comments She had 2 not good days but other than that it has been doing good. Hormone replacement 03/29/21. Mireya reports she has been working hard doing all her exercises at home Patient Reported Progress Same PT-OP-I Pelvic Floor Start: 01/06/21 11:17 Freq: Status: Active Protocol: Document 01/06/21 11:48 [facility] (Rec: 01/06/21 11:48 [facility] [id number]) Pelvic Floor Assessment Urine Urinary Symptoms Prolapse Other Urinary Symptoms patient describes heaviness from prolaspe, she also reports urinary leakage with strong cough or sneeze and with urge to void Leakage Size Small Bowel Bowel Symptoms Fecal Leakage Other Bowel Symptoms pt has had a couple episodes of waking up in the morning and finding stool leakage Pelvic Clock Pelvic Clock 12-3 Atrophy Pelvic Clock 3-6 Atrophy Pelvic Clock 6-9 Atrophy Pelvic Clock 9-12 Atrophy Prolapse Cystocele Grade 2 Rectocele Grade 1 SEMG (uV) Baseline 0 10 Second Contraction 8.6 Contraction Ability Manual Muscle Testing Left 2 Manual Muscle Testing Right 2 Manual Muscle Testing Anterior 3 Manual Muscle Testing Posterior 2 PT-OP-Q Treatments Start: 01/06/21 11:17 Freq: Status: Active Protocol: Document 03/12/21 14:34 [facility] (Rec: 03/12/21 16:06 [facility] [id number]) Therapeutic Exercises Supine Exercises templates for eccentric control and coordination Reps/Minutes x 5 each template x 8 min quick flicks Reps/Minutes x 15 reps Comments 18.6 uv supine ball squeeze Reps/Minutes x 10 reps holding 5 seconds each pelvic floor long holds Reps/Minutes 9.3 avereage max 19uv Sidelying Exercises sidelying clam shells Side bilateral Reps/Minutes 2x 10 reps PT-OP-T Assessment and Plan Start: 01/06/21 11:17 Freq: Status: Active Protocol: Document 03/12/21 14:34 [facility] (Rec: 03/12/21 16:30 [facility] [id number]) Physical Therapy Assessment Assessment Summary Assessment Mireya had been on her feet today for longer duration and was more fatigued in her pelvic floor. 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 Physical Therapy Plan Frequency and Duration Frequency of Treatment 1x/Week Duration of Treatment 8 Plan of Care Start Date 02/25/21 Plan of Care End Date 04/22/21 Therapeutic Interventions Therapeutic Interventions Home Exercise Program, Neuromuscular Re-education, Self-Care/Home Management,Soft Tissue Mobilization, Therapeutic Exercises Modalities Biofeedback Next Visit Focus/Plan Next Note Type Treatment Note Next Visit Plan Progress pelvic floor strengthening, pelvic decompression exercises, EMG biofeedback for pelvic floor endurance training
--- NOTE | 2021-03-18 11:17 | PT.OTN ---
Current Diagnoses Mixed incontinence (03/18/21) Physical Therapy Treatment Note PT-OP-A Visit Information Start: 01/06/21 11:17 Freq: Status: Active Protocol: Document 03/18/21 10:36 [facility] (Rec: 03/18/21 11:11 [facility] [id number]) Out-Patient Physical Therapy Visit Information Visit Information Visit Type Treatment Note Visit Start Time 10:34 Visit Stop Time 11:15 Total Visit Minutes 45 Visit Number 5 PT-OP-B Current Condition Start: 01/06/21 11:17 Freq: Status: Active Protocol: Document 01/06/21 11:15 [facility] (Rec: 01/06/21 11:27 [facility] [id number]) Current Condition History of Current Condition Onset Date symptoms have worsened again in the past couple of months Current Complaints pelvic heaviness and pressure from POP, fecal leakage at night History of Current Condition PT feel like she may end up having the prolapse repaired and wants to do PT again before hand. She has had a few episodes of fecal leakage waking up with it. 1-2 episodes of leaking at night. She also describes episodes of pain in the bladder region. She has been volunteering and standing more and she is wondering if this is contributing to her pain. PT-OP-C Subjective Start: 01/06/21 11:17 Freq: Status: Active Protocol: Document 03/18/21 10:36 [facility] (Rec: 03/18/21 11:11 [facility] [id number]) OP-PT Subjective Patient Comments Patient Comments pt has her appt with hormone replacement on 03/29/21 PT-OP-I Pelvic Floor Start: 01/06/21 11:17 Freq: Status: Active Protocol: Document 01/06/21 11:48 [facility] (Rec: 01/06/21 11:48 [facility] [id number]) Pelvic Floor Assessment Urine Urinary Symptoms Prolapse Other Urinary Symptoms patient describes heaviness from prolaspe, she also reports urinary leakage with strong cough or sneeze and with urge to void Leakage Size Small Bowel Bowel Symptoms Fecal Leakage Other Bowel Symptoms pt has had a couple episodes of waking up in the morning and finding stool leakage Pelvic Clock Pelvic Clock 12-3 Atrophy Pelvic Clock 3-6 Atrophy Pelvic Clock 6-9 Atrophy Pelvic Clock 9-12 Atrophy Prolapse Cystocele Grade 2 Rectocele Grade 1 SEMG (uV) Baseline 0 10 Second Contraction 8.6 Contraction Ability Manual Muscle Testing Left 2 Manual Muscle Testing Right 2 Manual Muscle Testing Anterior 3 Manual Muscle Testing Posterior 2 PT-OP-Q Treatments Start: 01/06/21 11:17 Freq: Status: Active Protocol: Document 03/18/21 10:36 [facility] (Rec: 03/18/21 11:11 [facility] [id number]) Therapeutic Exercises Supine Exercises piriformis stretch Reps/Minutes x 30 seconds TA with SLR Reps/Minutes x 10 reps TA with marches Reps/Minutes x 10 bridges with hip abduction Reps/Minutes x 10 reps bridges with ball squeeze Reps/Minutes x 10 reps supine ball squeeze Reps/Minutes x 10 reps holding 5 seconds each hip roll outs with theraband Reps/Minutes 3 x 10 reps pelvic floor long holds Reps/Minutes x 10 reps Sidelying Exercises sidelying clam shells Side bilateral Reps/Minutes 2x 10 reps PT-OP-T Assessment and Plan Start: 01/06/21 11:17 Freq: Status: Active Protocol: Document 03/18/21 10:30 [facility] (Rec: 03/18/21 11:17 [facility] [id number]) Physical Therapy Assessment Assessment Summary Assessment added in core stabilization exercises of TA with SLR and with marches and zeny tolerated this well. Continue to progress pelvic floor and core stabilization Physical Therapy Plan Frequency and Duration Frequency of Treatment 1x/Week Duration of Treatment 8 Plan of Care Start Date 02/25/21 Plan of Care End Date 04/22/21 Next Visit Focus/Plan Next Note Type Treatment Note Next Visit Plan Progress pelvic floor strengthening, pelvic decompression exercises, EMG biofeedback for pelvic floor endurance training
--- NOTE | 2021-03-24 15:58 | PT.OTN ---
Current Diagnoses Mixed incontinence (03/24/21) Physical Therapy Treatment Note PT-OP-A Visit Information Start: 01/06/21 11:17 Freq: Status: Active Protocol: Document 03/24/21 13:00 [facility] (Rec: 03/24/21 15:58 [facility] [id number]) Out-Patient Physical Therapy Visit Information Visit Information Visit Type Treatment Note Visit Start Time 13:00 Visit Stop Time 13:45 Total Visit Minutes 45 Visit Number 6 PT-OP-B Current Condition Start: 01/06/21 11:17 Freq: Status: Active Protocol: Document 01/06/21 11:15 [facility] (Rec: 01/06/21 11:27 [facility] [id number]) Current Condition History of Current Condition Onset Date symptoms have worsened again in the past couple of months Current Complaints pelvic heaviness and pressure from POP, fecal leakage at night History of Current Condition PT feel like she may end up having the prolapse repaired and wants to do PT again before hand. She has had a few episodes of fecal leakage waking up with it. 1-2 episodes of leaking at night. She also describes episodes of pain in the bladder region. She has been volunteering and standing more and she is wondering if this is contributing to her pain. PT-OP-C Subjective Start: 01/06/21 11:17 Freq: Status: Active Protocol: Document 03/24/21 13:00 [facility] (Rec: 03/24/21 15:58 [facility] [id number]) OP-PT Subjective Patient Comments Patient Comments pt notes she is doing better this week with decreased complaints of pressure PT-OP-I Pelvic Floor Start: 01/06/21 11:17 Freq: Status: Active Protocol: Document 01/06/21 11:48 [facility] (Rec: 01/06/21 11:48 [facility] [id number]) Pelvic Floor Assessment Urine Urinary Symptoms Prolapse Other Urinary Symptoms patient describes heaviness from prolaspe, she also reports urinary leakage with strong cough or sneeze and with urge to void Leakage Size Small Bowel Bowel Symptoms Fecal Leakage Other Bowel Symptoms pt has had a couple episodes of waking up in the morning and finding stool leakage Pelvic Clock Pelvic Clock 12-3 Atrophy Pelvic Clock 3-6 Atrophy Pelvic Clock 6-9 Atrophy Pelvic Clock 9-12 Atrophy Prolapse Cystocele Grade 2 Rectocele Grade 1 SEMG (uV) Baseline 0 10 Second Contraction 8.6 Contraction Ability Manual Muscle Testing Left 2 Manual Muscle Testing Right 2 Manual Muscle Testing Anterior 3 Manual Muscle Testing Posterior 2 PT-OP-Q Treatments Start: 01/06/21 11:17 Freq: Status: Active Protocol: Document 03/24/21 13:00 [facility] (Rec: 03/24/21 15:58 [facility] [id number]) Therapeutic Exercises Supine Exercises TA with SLR Reps/Minutes x 10 reps TA with marches Reps/Minutes x 10 bridges with hip abduction Reps/Minutes x 10 reps bridges with ball squeeze Reps/Minutes x 10 reps templates for eccentric control and coordination Reps/Minutes x 5 each template x 8 min quick flicks Reps/Minutes x 15 reps Comments 18.6 uv supine ball squeeze Reps/Minutes x 10 reps holding 5 seconds each hip roll outs with theraband Reps/Minutes 3 x 10 reps pelvic floor long holds Reps/Minutes x 10 reps Sidelying Exercises sidelying clam shells Side bilateral Reps/Minutes 2x 10 reps PT-OP-T Assessment and Plan Start: 01/06/21 11:17 Freq: Status: Active Protocol: Document 03/24/21 13:00 [facility] (Rec: 03/24/21 15:58 [facility] [id number]) Physical Therapy Assessment Assessment Summary Assessment pt did really well today with all her exercises and her average on EMG biofeedback was improve to 11 uv. The pool has been good for her to return to Physical Therapy Plan Frequency and Duration Frequency of Treatment 1x/Week Duration of Treatment 8 Plan of Care Start Date 02/25/21 Plan of Care End Date 04/22/21 Therapeutic Interventions Therapeutic Interventions Home Exercise Program, Neuromuscular Re-education, Self-Care/Home Management,Soft Tissue Mobilization, Therapeutic Exercises Modalities Biofeedback Next Visit Focus/Plan Next Note Type Treatment Note Next Visit Plan Progress pelvic floor strengthening, pelvic decompression exercises, EMG biofeedback for pelvic floor endurance training
--- NOTE | 2021-05-20 13:21 | PT.OTN ---
Current Diagnoses Mixed incontinence (05/20/21) Physical Therapy Treatment Note PT-OP-A Visit Information Start: 01/06/21 11:17 Freq: Status: Active Protocol: Document 05/20/21 10:31 [facility] (Rec: 05/20/21 11:05 [facility] [id number]) Out-Patient Physical Therapy Visit Information Visit Information Visit Type Progress Note Visit Start Time 10:30 Visit Stop Time 11:15 Total Visit Minutes 45 Visit Number 7 PT-OP-B Current Condition Start: 01/06/21 11:17 Freq: Status: Active Protocol: Document 01/06/21 11:15 [facility] (Rec: 01/06/21 11:27 [facility] [id number]) Current Condition History of Current Condition Onset Date symptoms have worsened again in the past couple of months Current Complaints pelvic heaviness and pressure from POP, fecal leakage at night History of Current Condition PT feel like she may end up having the prolapse repaired and wants to do PT again before hand. She has had a few episodes of fecal leakage waking up with it. 1-2 episodes of leaking at night. She also describes episodes of pain in the bladder region. She has been volunteering and standing more and she is wondering if this is contributing to her pain. PT-OP-C Subjective Start: 01/06/21 11:17 Freq: Status: Active Protocol: Document 05/20/21 10:31 [facility] (Rec: 05/20/21 11:05 [facility] [id number]) OP-PT Subjective Patient Comments Patient Comments pt notes that since she started the hormone injection she has had only one time that she had any symptoms. PT-OP-I Pelvic Floor Start: 01/06/21 11:17 Freq: Status: Active Protocol: Document 01/06/21 11:48 [facility] (Rec: 01/06/21 11:48 [facility] [id number]) Pelvic Floor Assessment Urine Urinary Symptoms Prolapse Other Urinary Symptoms patient describes heaviness from prolaspe, she also reports urinary leakage with strong cough or sneeze and with urge to void Leakage Size Small Bowel Bowel Symptoms Fecal Leakage Other Bowel Symptoms pt has had a couple episodes of waking up in the morning and finding stool leakage Pelvic Clock Pelvic Clock 12-3 Atrophy Pelvic Clock 3-6 Atrophy Pelvic Clock 6-9 Atrophy Pelvic Clock 9-12 Atrophy Prolapse Cystocele Grade 2 Rectocele Grade 1 SEMG (uV) Baseline 0 10 Second Contraction 8.6 Contraction Ability Manual Muscle Testing Left 2 Manual Muscle Testing Right 2 Manual Muscle Testing Anterior 3 Manual Muscle Testing Posterior 2 PT-OP-Q Treatments Start: 01/06/21 11:17 Freq: Status: Active Protocol: Document 05/20/21 10:31 [facility] (Rec: 05/20/21 11:05 [facility] [id number]) Therapeutic Exercises Supine Exercises piriformis stretch Comments HEP templates for eccentric control and coordination Reps/Minutes x 5 each template x 8 min quick flicks Reps/Minutes x 15 reps Comments 18.6 uv hip roll outs with theraband Comments HEP pelvic floor long holds Reps/Minutes x 10 reps Comments 6.5 and 14.4 uv Sidelying Exercises sidelying clam shells Comments HEP Self-Care/Home Management Treatment Education Patient Education Home Exercise Program Other Education HEP reviewed PT-OP-T Assessment and Plan Start: 01/06/21 11:17 Freq: Status: Active Protocol: Document 05/20/21 10:31 [facility] (Rec: 05/20/21 11:05 [facility] [id number]) Physical Therapy Assessment Goals decrease c/o pelvic pressure and heaviness with standing activities [facility] Goal (LTG) 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[employer] with decreased c/p pelvic pressure with standing activities GOAL MET LTG Duration 8 weeks Improve endurance of the pelvic floor Impairment Decreased endurance of the pelvic floor [facility] Goal (LTG) Lissette is able to sustain a pelvic floor contraction in standing and supine for 10 second hold time Much improved ability to sustain a pelvic floor contraction, working on standing pelvic floor stabilization LTG Duration 8 weeks Improve strength of the pelvic floor Impairment pelvic floor weakness 3/5 MMT Kindergarten Instructional Assistant Goal (LTG) Improve pelvic floor strength by one muscle grade to 4/5 MMT for improved support of the rectum and bladder Good progress LTG Duration 8 weeks Assessment Summary Assessment Mireya is doing really well since she had her hormone injections. She is no longer c/o pelvic pressure and is feeling good about her exercises for home. She will be discharged from PT at this time to a [facility]. Physical Therapy Plan Frequency and Duration Frequency of Treatment 1x/Week Duration of Treatment 1 Plan of Care Start Date 05/20/21 Plan of Care End Date 05/20/21 Therapeutic Interventions Therapeutic Interventions Home Exercise Program, Neuromuscular Re-education, Self-Care/Home Management,Soft Tissue Mobilization, Therapeutic Exercises Modalities Biofeedback Discharge Physical Therapy Discharge Reasons Goals Met Next Visit Focus/Plan Next Note Type Treatment Note
--- NOTE | 2021-05-20 13:21 | PT.OPPOC ---
Physical, Occupational & Speech Therapy At [facility] Current Diagnoses Mixed incontinence (05/20/21) Visit Care Team Role Provider Type Avila Prado MD Primary Care Provider Non-Staff Specialty: Family Practice Address: [address] [place] [address], [id number] Email: Meredith Pinto MD Attending Provider Non-Staff Referring Provider Specialty: Medical Address: [address] [place] [address], [id number] Email: Plan Of Care PT-OP-T Assessment and Plan Start: 01/06/21 11:17 Freq: Status: Active Protocol: Document 05/20/21 10:31 [facility] (Rec: 05/20/21 11:05 [facility] [id number]) Physical Therapy Assessment Goals decrease c/o pelvic pressure and heaviness with standing activities Trimmer Hand Goal (LTG) 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 pelvic pressure with standing activities GOAL MET LTG Duration 8 weeks Improve endurance of the pelvic floor Impairment Decreased endurance of the pelvic floor Trimmer Hand Goal (LTG) Mireya is able to sustain a pelvic floor contraction in standing and supine for 10 second hold time Much improved ability to sustain a pelvic floor contraction, working on standing pelvic floor stabilization LTG Duration 8 weeks Improve strength of the pelvic floor Impairment pelvic floor weakness 3/5 MMT [facility] Goal (LTG) Improve pelvic floor strength by one muscle grade to 4/5 MMT for improved support of the rectum and bladder Good progress LTG Duration 8 weeks Assessment Summary Assessment Mireya is doing really well since she had her hormone injections. She is no longer c/o pelvic pressure and is feeling good about her exercises for home. She will be discharged from PT at this time to a [facility]. Physical Therapy Plan Frequency and Duration Frequency of Treatment 1x/Week Duration of Treatment 1 Plan of Care Start Date 05/20/21 Plan of Care End Date 05/20/21 Therapeutic Interventions Therapeutic Interventions Home Exercise Program, Neuromuscular Re-education, Self-Care/Home Management,Soft Tissue Mobilization, Therapeutic Exercises Modalities Biofeedback Discharge Physical Therapy Discharge Reasons Goals Met Next Visit Focus/Plan Next Note Type Treatment Note Plan of Care Dates Plan of Care Start Date 05/20/21 Plan of Care End Date 05/20/21 Electronically Signed by: Lorena Gaffney, PT 05/20/21 [id number] Please Sign and Return: I have reviewed this Plan of Care and certify that the skilled therapy services above are required to meet the patient?s needs. Physician Signature Date Printed Name and Credentials Clinical Instructor Signature Printed Name and Credentials
== END 2021-07-01 13:55 | disposition home or self-care (01) ==
LOC: PHYS 10:30
PROVIDERS: PCP Family Medicine; Referring Provider Urology Female Pelvic Medicine and Reconstructive Surgery; Visit Provider Urology Female Pelvic Medicine and Reconstructive Surgery
DX: N39.46 Mixed incontinence (principal)
CPT/HCPCS: 97110; 97161; 97535

== ENCOUNTER → 2023-01-26 15:53 | Outpatient (RCR) | payer MEDICARE, OTHER, SELFPAY ==
--- NOTE | 2021-06-11 13:21 | PT.OIE ---
Current Diagnoses Unspecified rotator cuff tear or rupture of right shoulder, not specified as traumatic (06/11/21) Visit Care Team Role Provider Type Chris Serrano MD Attending Provider Non-Staff Family Provider Primary Care Provider Referring Provider Specialty: Orthopedic Surgery Address: [address] [place] [address], [id number] Email: Physical Therapy Initial Evaluation PT-OP-A Visit Information Start: 06/11/21 09:00 Freq: Status: Active Protocol: Document 06/11/21 09:03 [facility] (Rec: 06/11/21 09:18 [facility] [id number]) Out-Patient Physical Therapy Visit Information Visit Information Visit Type Initial Evaluation Visit Start Time 09:00 Visit Stop Time 09:25 Total Visit Minutes 25 Visit Number 1 pt had another appointment she needed to get to Evaluation Information Evaluation Date 06/11/21 PT-OP-B Current Condition Start: 06/11/21 09:00 Freq: Status: Active Protocol: Document 06/11/21 09:03 [facility] (Rec: 06/11/21 09:18 [facility] [id number]) Current Condition History of Current Condition Onset Date March 2021 Current Complaints right shoulder pain History of Current Condition pt reports insidious onset of right sided shoulder pain a few months ago. She has been working at the [employer] in [place] and this involves lifting boxes and reaching up. She is not sure how she injured her shoulder specifically but feels it is due to lifting and reaching. She will be done with her job the end of May. She has been icing her shoulder and feels this helps. She recently traveled and is more sore now that she is home. Pain is rated 4/10 in her lateral shoulder. Mireya describes difficulties with activities such as opening a jar, reaching and lifting. Treatment Goals Patient/Caregiver Goals [place] goals include decreasing shoulder pain and improving strength/ROM of the right shoulder Current Functional Impairments (Reported) Functional Limitations- ADL's opening a jar or turning a door knob, reaching and lifting over head Functional Limitations- Recreation/ pt reports her shoulder pain Hobbies has moderately interfered with normal social activities PT-OP-C Subjective Start: 06/11/21 09:00 Freq: Status: Active Protocol: Document 06/11/21 09:00 [facility] (Rec: 06/11/21 09:37 [facility] [id number]) Patient Questionnaires Quick Dash- Upper Extremity Quick Dash UE Score 23 Quick Dash UE Impairment 20 to 39% Impaired (Score 20- 39) OP-PT Pain Assessment Location right lateral shoulder Intensity 4 Scale Used Numeric (0 - 10) Description Radiating,With Movement Frequency Frequent PT-OP-F Manual Assessment Start: 06/11/21 09:00 Freq: Status: Active Protocol: Document 06/11/21 09:00 [facility] (Rec: 06/11/21 13:19 [facility] [id number]) Manual Assessments Soft Tissue Assessment Soft Tissue Mobility Assessment pec minor and upper trapezius tightness and guarding R>L Joint Mobility Assessment Joint Mobility Assessment decreased posterior glide of the right shoulder with tightness in the posterior shoulder capsule PT-OP-J Posture/Palpation/Skin Start: 06/11/21 09:00 Freq: Status: Active Protocol: Document 06/11/21 09:00 [facility] (Rec: 06/11/21 13:07 [facility] [id number]) Posture Evaluation Comments Posture Comments rounded shoulder posture B with R>L Palpation Assessment Location pec minor Palpation Location tightness of the pec minor on the right Palpation Findings Spasm,Muscle Guarding upper trapezius Palpation Location tenderness over the upper trapezius B Palpation Findings Soft Tissue Tightness,Muscle Guarding,Tenderness tenderness over the lateral deltoid region Palpation Location lateral deltoid Palpation Findings Tenderness,Trigger Point PT-OP-K Range of Motion Start: 06/11/21 09:00 Freq: Status: Active Protocol: Document 06/11/21 09:00 [facility] (Rec: 06/11/21 13:07 [facility] [id number]) Shoulder Goniometric Range of Motion Shoulder right Testing Position Standing Flexion 120 Abduction 80 External Rotation at 45 degrees 45 Abduction Internal Rotation Behind Back (text) T 8 PT-OP-M Strength Start: 06/11/21 09:00 Freq: Status: Active Protocol: Document 06/11/21 09:00 [facility] (Rec: 06/11/21 13:07 [facility] [id number]) Shoulder Strength Shoulder Manual Muscle Testing Right Flexion 3 Fair Abduction (C5) 3 Fair External Rotation 4- Good- PT-OP-Q Treatments Start: 06/11/21 09:00 Freq: Status: Active Protocol: Document 06/11/21 09:00 [facility] (Rec: 06/11/21 09:28 [facility] [id number]) Therapeutic Exercises Supine Exercises pec stretch with bolster Side bilateral Reps/Minutes 1-2 minutes Comments pt has bolster at home, arm straight and shoulder ER by her side shoulder ER stretch Side right Comments pt to use a pillow under her arm to support her shoulder stretching into ER Standing Exercises door way pec stretch Reps/Minutes hold 1-2 minutes Comments straight arm pendullum swing Side right Resistance 1-2 lbs Comments pt instructed in pendullum swing to help with decompression PT-OP-T Assessment and Plan Start: 06/11/21 09:00 Freq: Status: Active Protocol: Document 06/11/21 09:00 [facility] (Rec: 06/11/21 13:18 [facility] [id number]) Physical Therapy Assessment Rehab Potential Rehabilitation Potential Excellent Evaluation Complexity Number of Personal Factors/Comorbidities 0 Number of Body Systems Impaired 1-2 Clinical Presentation at Evaluation Stable Impairments Impairments Activity Tolerance,Functional Mobility,Pain,ROM,Soft Tissue Mobility,Strength Goals 4 Impairment Decreased strength of the right shoulder Buyer Assistant Goal (LTG) Mireya is able to increase her right sided shoulder strength to 4+/5 or better for improved shoulder stabilization LTG Duration 8 weeks 3 Impairment shoulder pain with opening a jar or turning a doorknob Buyer Assistant Goal (LTG) Mireya is able to perform all ADL's including opening a jar without c/o pain LTG Duration 8 weeks 2 Impairment right sided shoulder pain rated 4/10 [facility] Goal (LTG) Mireya presents with overall decreased shoulder pain 0-1/10 LTG Duration 8 weeks 1 Impairment Decreased shoulder ROM and pain with reaching overhead Short Term Goal (STG) Mireya is able to tolerate pain free AAROM of the right shoulder and is able to be WFL for all shoulder ROM STG Duration 4 weeks [facility]pc Goal (LTG) Mireya is able to perform full pain free active ROM of her right shoulder without c/o pain LTG Duration 8 weeks Assessment Summary Assessment Mireya is a 76 year old female referred to PT today with complaints of right sided shoulder pain that began a few months ago. She has been working at the [employer] in [place] and has had to do quite a bit of lifting and reaching over head which she feels may have aggravated her right shoulder. She will be done with this job the end of May. SHe is c/o right sided lateral shoulder pain rated 4/10. Her pain does improve with ice and she has been working on ice massage to the right lateral shoulder. With examination today she presents with what is most likely impingement syndrome on the right side. She tests 4/5 MMT for shoulder ER and 3/5 MMT for flexion and abduction. Her ROM into IR is WFL, she is limited to shoulder ER at 45 degrees abduction and there are limitations with end range flexion and abduction. Her upper trapezius and pectoralis muscles are tight and restricted bilaterally. Mireya was educated today in pendullum exercise to decompress the shoulder, ROM ex and gentle stretching for her pec minor. She tolerated this well and is a good candidate for PT Physical Therapy Plan Frequency and Duration Frequency of Treatment 2x/Week Duration of Treatment 8 Plan of Care Start Date 06/11/21 Plan of Care End Date 08/06/21 Therapeutic Interventions Therapeutic Interventions Home Exercise Program,Manual Therapy,Patient/Caregiver Education,Self-Care/Home Management,Sensory Integration ,Soft Tissue Mobilization, Therapeutic Exercises
--- NOTE | 2021-06-11 13:23 | PT.OPPOC ---
Physical, Occupational & Speech Therapy At [facility] Current Diagnoses Unspecified rotator cuff tear or rupture of right shoulder, not specified as traumatic (06/11/21) Visit Care Team Role Provider Type Chris Serrano MD Attending Provider Non-Staff Family Provider Primary Care Provider Referring Provider Specialty: Orthopedic Surgery Address: [address] [place] [address], [facility] [place] Email: Plan Of Care PT-OP-T Assessment and Plan Start: 06/11/21 09:00 Freq: Status: Active Protocol: Document 06/11/21 09:00 [facility] (Rec: 06/11/21 13:18 [facility] [id number]) Physical Therapy Assessment Rehab Potential Rehabilitation Potential Excellent Evaluation Complexity Number of Personal Factors/Comorbidities 0 Number of Body Systems Impaired 1-2 Clinical Presentation at Evaluation Stable Impairments Impairments Activity Tolerance,Functional Mobility,Pain,ROM,Soft Tissue Mobility,Strength Goals 4 Impairment Decreased strength of the right shoulder Pre Algebra Teacher Goal (LTG) Mireya is able to increase her right sided shoulder strength to 4+/5 or better for improved shoulder stabilization LTG Duration 8 weeks 3 Impairment shoulder pain with opening a jar or turning a doorknob [facility] Goal (LTG) Mireya is able to perform all ADL's including opening a jar without c/o pain LTG Duration 8 weeks 2 Impairment right sided shoulder pain rated 4/10 [facility] Goal (LTG) Mireya presents with overall decreased shoulder pain 0-1/10 LTG Duration 8 weeks 1 Impairment Decreased shoulder ROM and pain with reaching overhead Short Term Goal (STG) Mireya is able to tolerate pain free AAROM of the right shoulder and is able to be WFL for all shoulder ROM STG Duration 4 weeks Pre Algebra Teacher Goal (LTG) Mireya is able to perform full pain free active ROM of her right shoulder without c/o pain LTG Duration 8 weeks Assessment Summary Assessment Mireya is a 76 year old female referred to PT today with complaints of right sided shoulder pain that began a few months ago. She has been working at the [employer] in [place] and has had to do quite a bit of lifting and reaching over head which she feels may have aggravated her right shoulder. She will be done with this job the end of May. SHe is c/o right sided lateral shoulder pain rated 4/10. Her pain does improve with ice and she has been working on ice massage to the right lateral shoulder. With examination today she presents with what is most likely impingement syndrome on the right side. She tests 4/5 MMT for shoulder ER and 3/5 MMT for flexion and abduction. Her ROM into IR is WFL, she is limited to shoulder ER at 45 degrees abduction and there are limitations with end range flexion and abduction. Her upper trapezius and pectoralis muscles are tight and restricted bilaterally. Mireya was educated today in pendullum exercise to decompress the shoulder, ROM ex and gentle stretching for her pec minor. She tolerated this well and is a good candidate for PT Physical Therapy Plan Frequency and Duration Frequency of Treatment 2x/Week Duration of Treatment 8 Plan of Care Start Date 06/11/21 Plan of Care End Date 08/06/21 Therapeutic Interventions Therapeutic Interventions Home Exercise Program,Manual Therapy,Patient/Caregiver Education,Self-Care/Home Management,Sensory Integration ,Soft Tissue Mobilization, Therapeutic Exercises Plan of Care Dates Plan of Care Start Date 06/11/21 Plan of Care End Date 08/06/21 Electronically Signed by: Lorena Gaffney, PT 06/11/21 1196 Please Sign and Return: I have reviewed this Plan of Care and certify that the skilled therapy services above are required to meet the patient?s needs. Physician Signature Date Printed Name and Credentials Clinical Instructor Signature Printed Name and Credentials
--- NOTE | 2021-06-23 12:34 | PT.OTN ---
Current Diagnoses Unspecified rotator cuff tear or rupture of right shoulder, not specified as traumatic (06/23/21) Physical Therapy Treatment Note PT-OP-A Visit Information Start: 06/11/21 09:00 Freq: Status: Active Protocol: Document 06/23/21 10:51 [facility] (Rec: 06/23/21 11:23 [facility] [id number]) Out-Patient Physical Therapy Visit Information Visit Information Visit Type Treatment Note Visit Start Time 10:50 Visit Stop Time 11:20 Total Visit Minutes 40 Visit Number 2 PT-OP-B Current Condition Start: 06/11/21 09:00 Freq: Status: Active Protocol: Document 06/11/21 09:03 [facility] (Rec: 06/11/21 09:18 [facility] [id number]) Current Condition History of Current Condition Onset Date March 2021 Current Complaints right shoulder pain History of Current Condition pt reports insidious onset of right sided shoulder pain a few months ago. She has been working at the [employer] in [employer] and this involves lifting boxes and reaching up. She is not sure how she injured her shoulder specifically but feels it is due to lifting and reaching. She will be done with her job the end of May. She has been icing her shoulder and feels this helps. She recently traveled and is more sore now that she is home. Pain is rated 4/10 in her lateral shoulder. Mireya describes difficulties with activities such as opening a jar, reaching and lifting. Treatment Goals Patient/Caregiver Goals [place] goals include decreasing shoulder pain and improving strength/ROM of the right shoulder Current Functional Impairments (Reported) Functional Limitations- ADL's opening a jar or turning a door knob, reaching and lifting over head Functional Limitations- Recreation/ pt reports her shoulder pain Hobbies has moderately interfered with normal social activities PT-OP-C Subjective Start: 06/11/21 09:00 Freq: Status: Active Protocol: Document 06/23/21 10:51 [facility] (Rec: 06/23/21 11:23 [facility] [id number]) OP-PT Subjective Patient Comments Patient Comments pain is reduced at this point, she can feel it but it doesn' t hurt. PT-OP-F Manual Assessment Start: 06/11/21 09:00 Freq: Status: Active Protocol: Document 06/11/21 09:00 [facility] (Rec: 06/11/21 13:19 [facility] [id number]) Manual Assessments Soft Tissue Assessment Soft Tissue Mobility Assessment pec minor and upper trapezius tightness and guarding R>L Joint Mobility Assessment Joint Mobility Assessment decreased posterior glide of the right shoulder with tightness in the posterior shoulder capsule PT-OP-J Posture/Palpation/Skin Start: 06/11/21 09:00 Freq: Status: Active Protocol: Document 06/11/21 09:00 [facility] (Rec: 06/11/21 13:07 [facility] [id number]) Posture Evaluation Comments Posture Comments rounded shoulder posture B with R>L Palpation Assessment Location pec minor Palpation Location tightness of the pec minor on the right Palpation Findings Spasm,Muscle Guarding upper trapezius Palpation Location tenderness over the upper trapezius B Palpation Findings Soft Tissue Tightness,Muscle Guarding,Tenderness tenderness over the lateral deltoid region Palpation Location lateral deltoid Palpation Findings Tenderness,Trigger Point PT-OP-K Range of Motion Start: 06/11/21 09:00 Freq: Status: Active Protocol: Document 06/11/21 09:00 [facility] (Rec: 06/11/21 13:07 [facility] [id number]) Shoulder Goniometric Range of Motion Shoulder right Testing Position Standing Flexion 120 Abduction 80 External Rotation at 45 degrees 45 Abduction Internal Rotation Behind Back (text) T 8 PT-OP-M Strength Start: 06/11/21 09:00 Freq: Status: Active Protocol: Document 06/11/21 09:00 [facility] (Rec: 06/11/21 13:07 [facility] [id number]) Shoulder Strength Shoulder Manual Muscle Testing Right Flexion 3 Fair Abduction (C5) 3 Fair External Rotation 4- Good- PT-OP-Q Treatments Start: 06/11/21 09:00 Freq: Status: Active Protocol: Document 06/23/21 10:51 [facility] (Rec: 06/23/21 11:23 [facility] [id number]) Therapeutic Exercises Supine Exercises supine shoulder flexion Reps/Minutes x 20 reps Comments with hands clasped pec stretch with bolster Side bilateral Reps/Minutes 1-2 minutes Comments pt has bolster at home, arm straight and shoulder ER by her side shoulder ER stretch Side right Comments pt to use a pillow under her arm to support her shoulder stretching into ER Sidelying Exercises sidelying shoulder ER Reps/Minutes 3 x 10 reps 1 set with 1 # Other Exercises juliana pose with shoulders extended Reps/Minutes hold 1-2 min thread scott needle Reps/Minutes x 5 each side Manual Therapy Treatment Soft Tissue Mobilization manual pec release Body Location right pec minor Mobilization Type Myofascial Release Comments a 1/2 foam roll was used to assist the stretching and release PT-OP-T Assessment and Plan Start: 06/11/21 09:00 Freq: Status: Active Protocol: Document 06/23/21 10:51 [facility] (Rec: 06/23/21 11:23 [facility] [id number]) Physical Therapy Assessment Assessment Summary Assessment able to perform full shoulder flexion today and by the end of treatment Mireya had full shoulder ER at 90 degrees abduction. Physical Therapy Plan Frequency and Duration Frequency of Treatment 2x/Week Duration of Treatment 8 Plan of Care Start Date 06/11/21 Plan of Care End Date 08/06/21 Therapeutic Interventions Therapeutic Interventions Home Exercise Program,Manual Therapy,Patient/Caregiver Education,Self-Care/Home Management,Sensory Integration ,Soft Tissue Mobilization, Therapeutic Exercises Next Visit Focus/Plan Next Note Type Treatment Note Next Visit Plan continue with plan of care and progress strengthening for the rotator cuff as well as releaseing the pec minor
--- NOTE | 2021-07-07 17:37 | PT.OTN ---
Current Diagnoses Unspecified rotator cuff tear or rupture of right shoulder, not specified as traumatic (07/07/21) Physical Therapy Treatment Note PT-OP-A Visit Information Start: 06/11/21 09:00 Freq: Status: Active Protocol: Document 07/07/21 13:53 [facility] (Rec: 07/07/21 14:58 [facility] [id number]) Out-Patient Physical Therapy Visit Information Visit Information Visit Type Treatment Note Visit Start Time 13:45 Visit Stop Time 14:30 Total Visit Minutes 45 Visit Number 3 PT-OP-B Current Condition Start: 06/11/21 09:00 Freq: Status: Active Protocol: Document 06/11/21 09:03 [facility] (Rec: 06/11/21 09:18 [facility] [id number]) Current Condition History of Current Condition Onset Date March 2021 Current Complaints right shoulder pain History of Current Condition pt reports insidious onset of right sided shoulder pain a few months ago. She has been working at the [email or web address] in [place] and this involves lifting boxes and reaching up. She is not sure how she injured her shoulder specifically but feels it is due to lifting and reaching. She will be done with her job the end of May. She has been icing her shoulder and feels this helps. She recently traveled and is more sore now that she is home. Pain is rated 4/10 in her lateral shoulder. Mireya describes difficulties with activities such as opening a jar, reaching and lifting. Treatment Goals Patient/Caregiver Goals [place] goals include decreasing shoulder pain and improving strength/ROM of the right shoulder Current Functional Impairments (Reported) Functional Limitations- ADL's opening a jar or turning a door knob, reaching and lifting over head Functional Limitations- Recreation/ pt reports her shoulder pain Hobbies has moderately interfered with normal social activities PT-OP-C Subjective Start: 06/11/21 09:00 Freq: Status: Active Protocol: Document 07/07/21 13:53 [facility] (Rec: 07/07/21 14:58 [facility] [id number]) OP-PT Subjective Patient Comments Patient Comments She had her work on shoulder ER and this has helped. Overall her shoulder is much better with decreased pain PT-OP-F Manual Assessment Start: 06/11/21 09:00 Freq: Status: Active Protocol: Document 06/11/21 09:00 [facility] (Rec: 06/11/21 13:19 [facility] [id number]) Manual Assessments Soft Tissue Assessment Soft Tissue Mobility Assessment pec minor and upper trapezius tightness and guarding R>L Joint Mobility Assessment Joint Mobility Assessment decreased posterior glide of the right shoulder with tightness in the posterior shoulder capsule PT-OP-J Posture/Palpation/Skin Start: 06/11/21 09:00 Freq: Status: Active Protocol: Document 06/11/21 09:00 [facility] (Rec: 06/11/21 13:07 [facility] [id number]) Posture Evaluation Comments Posture Comments rounded shoulder posture B with R>L Palpation Assessment Location pec minor Palpation Location tightness of the pec minor on the right Palpation Findings Spasm,Muscle Guarding upper trapezius Palpation Location tenderness over the upper trapezius B Palpation Findings Soft Tissue Tightness,Muscle Guarding,Tenderness tenderness over the lateral deltoid region Palpation Location lateral deltoid Palpation Findings Tenderness,Trigger Point PT-OP-K Range of Motion Start: 06/11/21 09:00 Freq: Status: Active Protocol: Document 06/11/21 09:00 [facility] (Rec: 06/11/21 13:07 [facility] [id number]) Shoulder Goniometric Range of Motion Shoulder right Testing Position Standing Flexion 120 Abduction 80 External Rotation at 45 degrees 45 Abduction Internal Rotation Behind Back (text) T 8 PT-OP-M Strength Start: 06/11/21 09:00 Freq: Status: Active Protocol: Document 06/11/21 09:00 [facility] (Rec: 06/11/21 13:07 [facility] [id number]) Shoulder Strength Shoulder Manual Muscle Testing Right Flexion 3 Fair Abduction (C5) 3 Fair External Rotation 4- Good- PT-OP-Q Treatments Start: 06/11/21 09:00 Freq: Status: Active Protocol: Document 07/07/21 13:45 [facility] (Rec: 07/07/21 17:36 [facility] [id number]) Therapeutic Exercises Supine Exercises pec stretch with bolster Side bilateral Reps/Minutes 1-2 minutes Comments pt has bolster at home, arm straight and shoulder ER by her side Standing Exercises standing shoulder rows Reps/Minutes 3 x 10 reps standing shoulder extension Equipment Used level 1 theraband Reps/Minutes 3 x 10 reps standing shoulder ER with theraband Equipment Used level 1 theraband Reps/Minutes 3 x 10 reps with level 1 TB Other Exercises juliana pose with shoulders extended Reps/Minutes hold 1-2 min thread scott needle Reps/Minutes x 5 each side Manual Therapy Treatment Soft Tissue Mobilization manual pec release Body Location right pec minor Mobilization Type Myofascial Release Manual Techniques manual shoulder IR/ER with end range stretching Reps/Duration manual shoulder IR/ER with end range stretching PT-OP-T Assessment and Plan Start: 06/11/21 09:00 Freq: Status: Active Protocol: Document 07/07/21 13:53 [facility] (Rec: 07/07/21 14:58 [facility] [id number]) Physical Therapy Assessment Assessment Summary Assessment Mireya was able to tolerate the addition of theraband strengthening exercises today. Continue to work towards improved shoulder stabilization as well as improved pec minor flexibility and posterior capsule mobility Physical Therapy Plan Frequency and Duration Frequency of Treatment 2x/Week Duration of Treatment 8 Plan of Care Start Date 06/11/21 Plan of Care End Date 08/06/21 Therapeutic Interventions Therapeutic Interventions Home Exercise Program,Manual Therapy,Patient/Caregiver Education,Self-Care/Home Management,Sensory Integration ,Soft Tissue Mobilization, Therapeutic Exercises Next Visit Focus/Plan Next Note Type Treatment Note Next Visit Plan continue with plan of care and progress strengthening for the rotator cuff as well as releasing the pec minor
--- NOTE | 2021-07-09 12:12 | PT.OTN ---
Current Diagnoses Unspecified rotator cuff tear or rupture of right shoulder, not specified as traumatic (07/09/21) Physical Therapy Treatment Note PT-OP-A Visit Information Start: 06/11/21 09:00 Freq: Status: Active Protocol: Document 07/09/21 11:20 [facility] (Rec: 07/09/21 11:37 [facility] [id number]) Out-Patient Physical Therapy Visit Information Visit Information Visit Type Treatment Note Visit Start Time 11:20 Visit Stop Time 12:05 Total Visit Minutes 45 Visit Number 4 PT-OP-B Current Condition Start: 06/11/21 09:00 Freq: Status: Active Protocol: Document 06/11/21 09:03 [facility] (Rec: 06/11/21 09:18 [facility] [id number]) Current Condition History of Current Condition Onset Date March 2021 Current Complaints right shoulder pain History of Current Condition pt reports insidious onset of right sided shoulder pain a few months ago. She has been working at the [email or web address] in [employer] and this involves lifting boxes and reaching up. She is not sure how she injured her shoulder specifically but feels it is due to lifting and reaching. She will be done with her job the end of May. She has been icing her shoulder and feels this helps. She recently traveled and is more sore now that she is home. Pain is rated 4/10 in her lateral shoulder. Mireya describes difficulties with activities such as opening a jar, reaching and lifting. Treatment Goals Patient/Caregiver Goals [place] goals include decreasing shoulder pain and improving strength/ROM of the right shoulder Current Functional Impairments (Reported) Functional Limitations- ADL's opening a jar or turning a door knob, reaching and lifting over head Functional Limitations- Recreation/ pt reports her shoulder pain Hobbies has moderately interfered with normal social activities PT-OP-C Subjective Start: 06/11/21 09:00 Freq: Status: Active Protocol: Document 07/07/21 13:53 [facility] (Rec: 07/07/21 14:58 [facility] [id number]) OP-PT Subjective Patient Comments Patient Comments She had her work on shoulder ER and this has helped. Overall her shoulder is much better with decreased pain PT-OP-F Manual Assessment Start: 06/11/21 09:00 Freq: Status: Active Protocol: Document 06/11/21 09:00 [facility] (Rec: 06/11/21 13:19 [facility] [id number]) Manual Assessments Soft Tissue Assessment Soft Tissue Mobility Assessment pec minor and upper trapezius tightness and guarding R>L Joint Mobility Assessment Joint Mobility Assessment decreased posterior glide of the right shoulder with tightness in the posterior shoulder capsule PT-OP-J Posture/Palpation/Skin Start: 06/11/21 09:00 Freq: Status: Active Protocol: Document 06/11/21 09:00 [facility] (Rec: 06/11/21 13:07 [facility] [id number]) Posture Evaluation Comments Posture Comments rounded shoulder posture B with R>L Palpation Assessment Location pec minor Palpation Location tightness of the pec minor on the right Palpation Findings Spasm,Muscle Guarding upper trapezius Palpation Location tenderness over the upper trapezius B Palpation Findings Soft Tissue Tightness,Muscle Guarding,Tenderness tenderness over the lateral deltoid region Palpation Location lateral deltoid Palpation Findings Tenderness,Trigger Point PT-OP-K Range of Motion Start: 06/11/21 09:00 Freq: Status: Active Protocol: Document 06/11/21 09:00 [facility] (Rec: 06/11/21 13:07 [facility] [id number]) Shoulder Goniometric Range of Motion Shoulder right Testing Position Standing Flexion 120 Abduction 80 External Rotation at 45 degrees 45 Abduction Internal Rotation Behind Back (text) T 8 PT-OP-M Strength Start: 06/11/21 09:00 Freq: Status: Active Protocol: Document 06/11/21 09:00 [facility] (Rec: 06/11/21 13:07 [facility] [id number]) Shoulder Strength Shoulder Manual Muscle Testing Right Flexion 3 Fair Abduction (C5) 3 Fair External Rotation 4- Good- PT-OP-Q Treatments Start: 06/11/21 09:00 Freq: Status: Active Protocol: Document 07/09/21 11:20 [facility] (Rec: 07/09/21 11:37 [facility] [id number]) Therapeutic Exercises Supine Exercises shoulder IR Reps/Minutes 3x10 IR supine shoulder flexion Reps/Minutes x 20 reps Comments with hands clasped pec stretch with bolster Side bilateral Reps/Minutes 1-2 minutes Comments pt has bolster at home, arm straight and shoulder ER by her side shoulder ER stretch Side right Comments pt to use a pillow under her arm to support her shoulder stretching into ER Standing Exercises standing shoulder rows Reps/Minutes 3 x 10 reps standing shoulder extension Equipment Used level 1 theraband Reps/Minutes 3 x 10 reps standing shoulder ER with theraband Equipment Used level 1 theraband Reps/Minutes 3 x 10 reps with level [address] pec stretch Reps/Minutes hold 1-2 minutes Comments straight arm pendullum swing Side right Resistance 1-2 lbs Comments pt instructed in pendullum swing to help with decompression Manual Therapy Treatment Soft Tissue Mobilization manual pec release Body Location right pec minor Mobilization Type Myofascial Release Manual Techniques manual shoulder IR/ER with end range stretching Reps/Duration manual shoulder IR/ER with end range stretching PT-OP-T Assessment and Plan Start: 06/11/21 09:00 Freq: Status: Active Protocol: Document 07/09/21 11:20 [facility] (Rec: 07/09/21 11:56 [facility] [id number]) Physical Therapy Assessment Assessment Summary Assessment ROM is improving, Mireya was sore from her ther ex but more muscle soreness than impingement. Physical Therapy Plan Frequency and Duration Frequency of Treatment 2x/Week Duration of Treatment 8 Plan of Care Start Date 06/11/21 Plan of Care End Date 08/06/21 Therapeutic Interventions Therapeutic Interventions Home Exercise Program,Manual Therapy,Patient/Caregiver Education,Self-Care/Home Management,Sensory Integration ,Soft Tissue Mobilization, Therapeutic Exercises Next Visit Focus/Plan Next Note Type Treatment Note Next Visit Plan continue with plan of care and progress strengthening for the rotator cuff as well as releasing the pec minor
--- NOTE | 2021-07-23 17:20 | PT.OTN ---
Current Diagnoses Unspecified rotator cuff tear or rupture of right shoulder, not specified as traumatic (07/23/21) Physical Therapy Treatment Note PT-OP-A Visit Information Start: 06/11/21 09:00 Freq: Status: Active Protocol: Document 07/23/21 14:40 [facility] (Rec: 07/23/21 15:01 [facility] [id number]) Out-Patient Physical Therapy Visit Information Visit Information Visit Type Treatment Note Visit Start Time 14:35 Visit Stop Time 15:15 Total Visit Minutes 40 Visit Number 5 PT-OP-B Current Condition Start: 06/11/21 09:00 Freq: Status: Active Protocol: Document 06/11/21 09:03 [facility] (Rec: 06/11/21 09:18 [facility] [id number]) Current Condition History of Current Condition Onset Date March 2021 Current Complaints right shoulder pain History of Current Condition pt reports insidious onset of right sided shoulder pain a few months ago. She has been working at the [employer] in [place] and this involves lifting boxes and reaching up. She is not sure how she injured her shoulder specifically but feels it is due to lifting and reaching. She will be done with her job the end of May. She has been icing her shoulder and feels this helps. She recently traveled and is more sore now that she is home. Pain is rated 4/10 in her lateral shoulder. Mireya describes difficulties with activities such as opening a jar, reaching and lifting. Treatment Goals Patient/Caregiver Goals [place] goals include decreasing shoulder pain and improving strength/ROM of the right shoulder Current Functional Impairments (Reported) Functional Limitations- ADL's opening a jar or turning a door knob, reaching and lifting over head Functional Limitations- Recreation/ pt reports her shoulder pain Hobbies has moderately interfered with normal social activities PT-OP-C Subjective Start: 06/11/21 09:00 Freq: Status: Active Protocol: Document 07/23/21 14:40 [facility] (Rec: 07/23/21 15:01 [facility] [id number]) OP-PT Subjective Patient Comments Patient Comments pt just got home from [place], she reports she is doing better and felt that it was good to rest her shoulder for a week. Patient Reported Progress Improving PT-OP-F Manual Assessment Start: 06/11/21 09:00 Freq: Status: Active Protocol: Document 06/11/21 09:00 [facility] (Rec: 06/11/21 13:19 [facility] [id number]) Manual Assessments Soft Tissue Assessment Soft Tissue Mobility Assessment pec minor and upper trapezius tightness and guarding R>L Joint Mobility Assessment Joint Mobility Assessment decreased posterior glide of the right shoulder with tightness in the posterior shoulder capsule PT-OP-J Posture/Palpation/Skin Start: 06/11/21 09:00 Freq: Status: Active Protocol: Document 06/11/21 09:00 [facility] (Rec: 06/11/21 13:07 [facility] [id number]) Posture Evaluation Comments Posture Comments rounded shoulder posture B with R>L Palpation Assessment Location pec minor Palpation Location tightness of the pec minor on the right Palpation Findings Spasm,Muscle Guarding upper trapezius Palpation Location tenderness over the upper trapezius B Palpation Findings Soft Tissue Tightness,Muscle Guarding,Tenderness tenderness over the lateral deltoid region Palpation Location lateral deltoid Palpation Findings Tenderness,Trigger Point PT-OP-K Range of Motion Start: 06/11/21 09:00 Freq: Status: Active Protocol: Document 06/11/21 09:00 [facility] (Rec: 06/11/21 13:07 [facility] [id number]) Shoulder Goniometric Range of Motion Shoulder right Testing Position Standing Flexion 120 Abduction 80 External Rotation at 45 degrees 45 Abduction Internal Rotation Behind Back (text) T 8 PT-OP-M Strength Start: 06/11/21 09:00 Freq: Status: Active Protocol: Document 06/11/21 09:00 [facility] (Rec: 06/11/21 13:07 [facility] [id number]) Shoulder Strength Shoulder Manual Muscle Testing Right Flexion 3 Fair Abduction (C5) 3 Fair External Rotation 4- Good- PT-OP-Q Treatments Start: 06/11/21 09:00 Freq: Status: Active Protocol: Document 07/23/21 14:30 [facility] (Rec: 07/23/21 17:13 [facility] [id number]) Therapeutic Exercises Supine Exercises shoulder IR Reps/Minutes 3x10 IR shoulder ER stretch Side right Comments pt to use a pillow under her arm to support her shoulder stretching into ER Sitting Exercises seated shoulder benita Reps/Minutes x 4 min Standing Exercises standing shoulder rows Reps/Minutes 3 x 10 reps standing shoulder extension Equipment Used level 1 theraband Reps/Minutes 3 x 10 reps standing shoulder ER with theraband Equipment Used level 1 theraband Reps/Minutes 3 x 10 reps with level 1 TB PT-OP-T Assessment and Plan Start: 06/11/21 09:00 Freq: Status: Active Protocol: Document 07/23/21 14:40 [facility] (Rec: 07/23/21 15:01 [facility] [id number]) Physical Therapy Assessment Goals 4 Impairment Decreased strength of the right shoulder Correction Goal (LTG) Mireya is able to increase her right sided shoulder strength to 4+/5 or better for improved shoulder stabilization 07/23/21 Good progress LTG Duration 8 weeks 3 Impairment shoulder pain with opening a jar or turning a doorknob [employer] Goal (LTG) Mireya is able to perform all ADL's including opening a jar without c/o pain 07/22/21 Good progress, overall decreased c/o pain LTG Duration 8 weeks 2 Impairment right sided shoulder pain rated 4/10 Correction Goal (LTG) Mireya presents with overall decreased shoulder pain 0-1/10 07/23/21, intermittent pain now rather than constant, can be as high as 4 with specific positions LTG Duration 8 weeks 1 Impairment Decreased shoulder ROM and pain with reaching overhead Short Term Goal (STG) Mireya is able to tolerate pain free AAROM of the right shoulder and is able to be WFL for all shoulder ROM 07/23/21 Excellent progress STG Duration 4 weeks [employer] Goal (LTG) Mireya is able to perform full pain free active ROM of her right shoulder without c/o pain LTG Duration 8 weeks Assessment Summary Assessment ROM into both ER and IR was improved today, today was Mireya's last scheduled visit. She would benefit from continued PT for strengthening of the right shoulder. She is doing better overall with her shoulder ROM but would benefit from continued strengthening. Physical Therapy Plan Frequency and Duration Frequency of Treatment 2x/Week Duration of Treatment 12 Plan of Care Start Date 07/23/21 Plan of Care End Date 10/15/21 Therapeutic Interventions Therapeutic Interventions Home Exercise Program,Manual Therapy,Patient/Caregiver Education,Self-Care/Home Management,Sensory Integration ,Soft Tissue Mobilization, Therapeutic Exercises Next Visit Focus/Plan Next Note Type Treatment Note Next Visit Plan continue with plan of care and progress strengthening for the rotator cuff as well as releasing the pec minor
--- NOTE | 2021-07-23 17:20 | PT.OPPOC ---
Physical, Occupational & Speech Therapy At [facility] Current Diagnoses Unspecified rotator cuff tear or rupture of right shoulder, not specified as traumatic (07/23/21) Visit Care Team Role Provider Type Chris Serrano MD Attending Provider Non-Staff Family Provider Primary Care Provider Referring Provider Specialty: Orthopedic Surgery Address: [address] [place] [address], [facility] Email: Plan Of Care PT-OP-T Assessment and Plan Start: 06/11/21 09:00 Freq: Status: Active Protocol: Document 07/23/21 14:40 [facility] (Rec: 07/23/21 15:01 [facility] [id number]) Physical Therapy Assessment Goals 4 Impairment Decreased strength of the right shoulder [place] Goal (LTG) Mireya is able to increase her right sided shoulder strength to 4+/5 or better for improved shoulder stabilization 07/23/21 Good progress LTG Duration 8 weeks 3 Impairment shoulder pain with opening a jar or turning a doorknob [employer] Goal (LTG) Mireya is able to perform all ADL's including opening a jar without c/o pain 07/22/21 Good progress, overall decreased c/o pain LTG Duration 8 weeks 2 Impairment right sided shoulder pain rated 4/10 Ep [employer] Goal (LTG) Mireya presents with overall decreased shoulder pain 0-1/10 07/23/21, intermittent pain now rather than constant, can be as high as 4 with specific positions LTG Duration 8 weeks 1 Impairment Decreased shoulder ROM and pain with reaching overhead Short Term Goal (STG) Mireya is able to tolerate pain free AAROM of the right shoulder and is able to be WFL for all shoulder ROM 07/23/21 Excellent progress STG Duration 4 weeks Ep Tech Goal (LTG) Mireya is able to perform full pain free active ROM of her right shoulder without c/o pain LTG Duration 8 weeks Assessment Summary Assessment ROM into both ER and IR was improved today, today was Mireya's last scheduled visit. She would benefit from continued PT for strengthening of the right shoulder. She is doing better overall with her shoulder ROM but would benefit from continued strengthening. Physical Therapy Plan Frequency and Duration Frequency of Treatment 2x/Week Duration of Treatment 12 Plan of Care Start Date 07/23/21 Plan of Care End Date 10/15/21 Therapeutic Interventions Therapeutic Interventions Home Exercise Program,Manual Therapy,Patient/Caregiver Education,Self-Care/Home Management,Sensory Integration ,Soft Tissue Mobilization, Therapeutic Exercises Next Visit Focus/Plan Next Note Type Treatment Note Next Visit Plan continue with plan of care and progress strengthening for the rotator cuff as well as releasing the pec minor Plan of Care Dates Plan of Care Start Date 07/23/21 Plan of Care End Date 10/15/21 Electronically Signed by: Lorena Gaffney, PT 07/23/21 [id number] Please Sign and Return: I have reviewed this Plan of Care and certify that the skilled therapy services above are required to meet the patient?s needs. Physician Signature Date Printed Name and Credentials Clinical Instructor Signature Printed Name and Credentials
--- NOTE | 2021-07-30 13:09 | PT.OTN ---
Current Diagnoses Unspecified rotator cuff tear or rupture of right shoulder, not specified as traumatic (07/30/21) Physical Therapy Treatment Note PT-OP-A Visit Information Start: 06/11/21 09:00 Freq: Status: Active Protocol: Document 07/30/21 09:50 [facility] (Rec: 07/30/21 10:19 [facility] [id number]) Out-Patient Physical Therapy Visit Information Visit Information Visit Type Treatment Note Visit Start Time 09:45 Visit Stop Time 10:30 Total Visit Minutes 45 Visit Number 6 PT-OP-B Current Condition Start: 06/11/21 09:00 Freq: Status: Active Protocol: Document 06/11/21 09:03 [facility] (Rec: 06/11/21 09:18 [facility] [id number]) Current Condition History of Current Condition Onset Date March 2021 Current Complaints right shoulder pain History of Current Condition pt reports insidious onset of right sided shoulder pain a few months ago. She has been working at the [employer] in [place] and this involves lifting boxes and reaching up. She is not sure how she injured her shoulder specifically but feels it is due to lifting and reaching. She will be done with her job the end of May. She has been icing her shoulder and feels this helps. She recently traveled and is more sore now that she is home. Pain is rated 4/10 in her lateral shoulder. Mireya describes difficulties with activities such as opening a jar, reaching and lifting. Treatment Goals Patient/Caregiver Goals [place] goals include decreasing shoulder pain and improving strength/ROM of the right shoulder Current Functional Impairments (Reported) Functional Limitations- ADL's opening a jar or turning a door knob, reaching and lifting over head Functional Limitations- Recreation/ pt reports her shoulder pain Hobbies has moderately interfered with normal social activities PT-OP-C Subjective Start: 06/11/21 09:00 Freq: Status: Active Protocol: Document 07/30/21 09:50 [facility] (Rec: 07/30/21 10:19 [facility] [id number]) OP-PT Subjective Patient Comments Patient Comments pt reports she did aqua aerobics and is a little sore in her shoulder. There was alot of overhead punching actions and she is wondering if this is okay for her shoulder Patient Reported Progress Improving PT-OP-F Manual Assessment Start: 06/11/21 09:00 Freq: Status: Active Protocol: Document 06/11/21 09:00 [facility] (Rec: 06/11/21 13:19 [facility] [id number]) Manual Assessments Soft Tissue Assessment Soft Tissue Mobility Assessment pec minor and upper trapezius tightness and guarding R>L Joint Mobility Assessment Joint Mobility Assessment decreased posterior glide of the right shoulder with tightness in the posterior shoulder capsule PT-OP-J Posture/Palpation/Skin Start: 06/11/21 09:00 Freq: Status: Active Protocol: Document 06/11/21 09:00 [facility] (Rec: 06/11/21 13:07 [facility] [id number]) Posture Evaluation Comments Posture Comments rounded shoulder posture B with R>L Palpation Assessment Location pec minor Palpation Location tightness of the pec minor on the right Palpation Findings Spasm,Muscle Guarding upper trapezius Palpation Location tenderness over the upper trapezius B Palpation Findings Soft Tissue Tightness,Muscle Guarding,Tenderness tenderness over the lateral deltoid region Palpation Location lateral deltoid Palpation Findings Tenderness,Trigger Point PT-OP-K Range of Motion Start: 06/11/21 09:00 Freq: Status: Active Protocol: Document 06/11/21 09:00 [facility] (Rec: 06/11/21 13:07 [facility] [id number]) Shoulder Goniometric Range of Motion Shoulder right Testing Position Standing Flexion 120 Abduction 80 External Rotation at 45 degrees 45 Abduction Internal Rotation Behind Back (text) T 8 PT-OP-M Strength Start: 06/11/21 09:00 Freq: Status: Active Protocol: Document 06/11/21 09:00 [facility] (Rec: 06/11/21 13:07 [facility] [id number]) Shoulder Strength Shoulder Manual Muscle Testing Right Flexion 3 Fair Abduction (C5) 3 Fair External Rotation 4- Good- PT-OP-Q Treatments Start: 06/11/21 09:00 Freq: Status: Active Protocol: Document 07/30/21 09:50 [facility] (Rec: 07/30/21 10:28 [facility] [id number]) Therapeutic Exercises Supine Exercises shoulder IR Reps/Minutes 3x10 IR pec stretch with bolster Side bilateral Reps/Minutes 1-2 minutes Comments pt has bolster at home, arm straight and shoulder ER by her side shoulder ER stretch Side right Comments pt to use a pillow under her arm to support her shoulder stretching into ER Standing Exercises standing shoulder abduction with wand Reps/Minutes x 10 reps shoulder IR Equipment Used level 1 Reps/Minutes 3 x 10 reps standing shoulder rows Equipment Used level 2 TB Reps/Minutes 3 x 10 reps standing shoulder extension Equipment Used level 1 theraband Reps/Minutes 3 x 10 reps standing shoulder ER with theraband Equipment Used level 1 theraband Reps/Minutes 3 x 10 reps with level 1 TB Other Exercises juliana pose with shoulders extended Reps/Minutes hold 1 min each direction thread scott needle Reps/Minutes x 5 reps Manual Therapy Treatment Soft Tissue Mobilization manual pec release Body Location right pec minor Mobilization Type Myofascial Release Comments pt laying over the foam roll for MFR Manual Techniques inferior and posterior capsule shoulder glides R Body Location right shoulder Body Position Sitting Comments good tolerance and inferior glides helped with active ROM into shoulder abduction manual shoulder IR/ER with end range stretching Reps/Duration manual shoulder IR/ER with end range stretching PT-OP-T Assessment and Plan Start: 06/11/21 09:00 Freq: Status: Active Protocol: Document 07/30/21 09:50 [facility] (Rec: 07/30/21 13:09 [facility] [id number]) Physical Therapy Assessment Assessment Summary Assessment discussed doing SA punches in the water verses overhead punches and slowing down the speed to avoid shoulder impingement. Pt is tolerating her ex but shoudler ER with resistance is still challanging for Mireya Physical Therapy Plan Frequency and Duration Frequency of Treatment 2x/Week Duration of Treatment 12 Plan of Care Start Date 07/23/21 Plan of Care End Date 10/15/21 Therapeutic Interventions Therapeutic Interventions Home Exercise Program,Manual Therapy,Patient/Caregiver Education,Self-Care/Home Management,Sensory Integration ,Soft Tissue Mobilization, Therapeutic Exercises Next Visit Focus/Plan Next Note Type Treatment Note Next Visit Plan add in sleeper stretch if pt can tolerate, continue progressing RC strengthening
--- NOTE | 2021-08-25 17:27 | PT.OTN ---
Current Diagnoses Unspecified rotator cuff tear or rupture of right shoulder, not specified as traumatic (08/25/21) Physical Therapy Treatment Note PT-OP-A Visit Information Start: 06/11/21 09:00 Freq: Status: Active Protocol: Document 08/25/21 10:35 [facility] (Rec: 08/25/21 11:12 [facility] [id number]) Out-Patient Physical Therapy Visit Information Visit Information Visit Type Treatment Note Visit Start Time 10:34 Visit Stop Time 11:15 Total Visit Minutes 42 Visit Number 7 PT-OP-B Current Condition Start: 06/11/21 09:00 Freq: Status: Active Protocol: Document 06/11/21 09:03 [facility] (Rec: 06/11/21 09:18 [facility] [id number]) Current Condition History of Current Condition Onset Date March 2021 Current Complaints right shoulder pain History of Current Condition pt reports insidious onset of right sided shoulder pain a few months ago. She has been working at the [employer] in [employer] and this involves lifting boxes and reaching up. She is not sure how she injured her shoulder specifically but feels it is due to lifting and reaching. She will be done with her job the end of May. She has been icing her shoulder and feels this helps. She recently traveled and is more sore now that she is home. Pain is rated 4/10 in her lateral shoulder. Mireya describes difficulties with activities such as opening a jar, reaching and lifting. Treatment Goals Patient/Caregiver Goals [place] goals include decreasing shoulder pain and improving strength/ROM of the right shoulder Current Functional Impairments (Reported) Functional Limitations- ADL's opening a jar or turning a door knob, reaching and lifting over head Functional Limitations- Recreation/ pt reports her shoulder pain Hobbies has moderately interfered with normal social activities PT-OP-C Subjective Start: 06/11/21 09:00 Freq: Status: Active Protocol: Document 08/25/21 10:35 [facility] (Rec: 08/25/21 11:12 [facility] [id number]) OP-PT Subjective Patient Comments Patient Comments pt has been doing good went traveling and hiking using hiking sticks over the past 2- 3 weeks and did great but then she did yoga 3 days ago, she irritated her shoulder then it got aggravated. In general its doing good but it is a little sore right now. Patient Reported Progress Improving PT-OP-F Manual Assessment Start: 06/11/21 09:00 Freq: Status: Active Protocol: Document 06/11/21 09:00 [facility] (Rec: 06/11/21 13:19 [facility] [id number]) Manual Assessments Soft Tissue Assessment Soft Tissue Mobility Assessment pec minor and upper trapezius tightness and guarding R>L Joint Mobility Assessment Joint Mobility Assessment decreased posterior glide of the right shoulder with tightness in the posterior shoulder capsule PT-OP-J Posture/Palpation/Skin Start: 06/11/21 09:00 Freq: Status: Active Protocol: Document 06/11/21 09:00 [facility] (Rec: 06/11/21 13:07 [facility] [id number]) Posture Evaluation Comments Posture Comments rounded shoulder posture B with R>L Palpation Assessment Location pec minor Palpation Location tightness of the pec minor on the right Palpation Findings Spasm,Muscle Guarding upper trapezius Palpation Location tenderness over the upper trapezius B Palpation Findings Soft Tissue Tightness,Muscle Guarding,Tenderness tenderness over the lateral deltoid region Palpation Location lateral deltoid Palpation Findings Tenderness,Trigger Point PT-OP-K Range of Motion Start: 06/11/21 09:00 Freq: Status: Active Protocol: Document 06/11/21 09:00 [facility] (Rec: 06/11/21 13:07 [facility] [id number]) Shoulder Goniometric Range of Motion Shoulder right Testing Position Standing Flexion 120 Abduction 80 External Rotation at 45 degrees 45 Abduction Internal Rotation Behind Back (text) T 8 PT-OP-M Strength Start: 06/11/21 09:00 Freq: Status: Active Protocol: Document 06/11/21 09:00 [facility] (Rec: 06/11/21 13:07 [facility] [id number]) Shoulder Strength Shoulder Manual Muscle Testing Right Flexion 3 Fair Abduction (C5) 3 Fair External Rotation 4- Good- PT-OP-Q Treatments Start: 06/11/21 09:00 Freq: Status: Active Protocol: Document 08/25/21 10:35 [facility] (Rec: 08/25/21 11:12 [facility] [id number]) Gym Equipment Cable Column (Body Solid) Lat Pull Down Resistance 20 Reps/Time 2 x 10 Rows Resistance 20 Reps/Time 3 x 10 Therapeutic Exercises Sidelying Exercises sidelying shoulder ER Reps/Minutes 3 x 10 reps 1 set with 1 # Comments pt fatigues quickly today and needs to rest after 10 reps Standing Exercises serratus anterior wall presses Reps/Minutes 2 x 20 reps Other Exercises prone thoracic extension Reps/Minutes x 10 reps Manual Therapy Treatment Soft Tissue Mobilization manual pec release Body Location right pec minor Mobilization Type Myofascial Release Comments pt laying over the foam roll for MFR Joint Mobilizations sidelying scapular mobilizations Body Position Sidelying Comments worked on scapula upward rotation, stretching the levator scapula and pec minor PT-OP-T Assessment and Plan Start: 06/11/21 09:00 Freq: Status: Active Protocol: Document 08/25/21 10:35 [facility] (Rec: 08/25/21 17:26 [facility] [id number]) Physical Therapy Assessment Assessment Summary Assessment Mireya had done plank in yoga and this may have aggravated her shoulder. I worked with her on scapula stabilization today and she tolerated this well. Physical Therapy Plan Frequency and Duration Frequency of Treatment 2x/Week Duration of Treatment 12 Plan of Care Start Date 07/23/21 Plan of Care End Date 10/15/21 Therapeutic Interventions Therapeutic Interventions Home Exercise Program,Manual Therapy,Patient/Caregiver Education,Self-Care/Home Management,Sensory Integration ,Soft Tissue Mobilization, Therapeutic Exercises Next Visit Focus/Plan Next Note Type Treatment Note Next Visit Plan continue progressing scapula stabilization, review lat pull down and seated rows that Mireya can do at the pool gym
--- NOTE | 2021-09-01 12:06 | PT.OTN ---
Current Diagnoses Unspecified rotator cuff tear or rupture of right shoulder, not specified as traumatic (09/01/21) Physical Therapy Treatment Note PT-OP-A Visit Information Start: 06/11/21 09:00 Freq: Status: Active Protocol: Document 09/01/21 10:35 [facility] (Rec: 09/01/21 10:39 [facility] [id number]) Out-Patient Physical Therapy Visit Information Visit Information Visit Type Treatment Note Visit Start Time 10:34 Visit Stop Time 11:20 Total Visit Minutes 45 Visit Number 8 PT-OP-B Current Condition Start: 06/11/21 09:00 Freq: Status: Active Protocol: Document 06/11/21 09:03 [facility] (Rec: 06/11/21 09:18 [facility] [id number]) Current Condition History of Current Condition Onset Date March 2021 Current Complaints right shoulder pain History of Current Condition pt reports insidious onset of right sided shoulder pain a few months ago. She has been working at the [employer] in [place] and this involves lifting boxes and reaching up. She is not sure how she injured her shoulder specifically but feels it is due to lifting and reaching. She will be done with her job the end of May. She has been icing her shoulder and feels this helps. She recently traveled and is more sore now that she is home. Pain is rated 4/10 in her lateral shoulder. Mireya describes difficulties with activities such as opening a jar, reaching and lifting. Treatment Goals Patient/Caregiver Goals [place] goals include decreasing shoulder pain and improving strength/ROM of the right shoulder Current Functional Impairments (Reported) Functional Limitations- ADL's opening a jar or turning a door knob, reaching and lifting over head Functional Limitations- Recreation/ pt reports her shoulder pain Hobbies has moderately interfered with normal social activities PT-OP-C Subjective Start: 06/11/21 09:00 Freq: Status: Active Protocol: Document 09/01/21 10:35 [facility] (Rec: 09/01/21 10:39 [facility] [id number]) OP-PT Subjective Patient Comments Patient Comments pt reports the sidelying scapular mobilizations helped. PT-OP-F Manual Assessment Start: 06/11/21 09:00 Freq: Status: Active Protocol: Document 06/11/21 09:00 [facility] (Rec: 06/11/21 13:19 [facility] [id number]) Manual Assessments Soft Tissue Assessment Soft Tissue Mobility Assessment pec minor and upper trapezius tightness and guarding R>L Joint Mobility Assessment Joint Mobility Assessment decreased posterior glide of the right shoulder with tightness in the posterior shoulder capsule PT-OP-J Posture/Palpation/Skin Start: 06/11/21 09:00 Freq: Status: Active Protocol: Document 06/11/21 09:00 [facility] (Rec: 06/11/21 13:07 [facility] [id number]) Posture Evaluation Comments Posture Comments rounded shoulder posture B with R>L Palpation Assessment Location pec minor Palpation Location tightness of the pec minor on the right Palpation Findings Spasm,Muscle Guarding upper trapezius Palpation Location tenderness over the upper trapezius B Palpation Findings Soft Tissue Tightness,Muscle Guarding,Tenderness tenderness over the lateral deltoid region Palpation Location lateral deltoid Palpation Findings Tenderness,Trigger Point PT-OP-K Range of Motion Start: 06/11/21 09:00 Freq: Status: Active Protocol: Document 06/11/21 09:00 [facility] (Rec: 06/11/21 13:07 [facility] [id number]) Shoulder Goniometric Range of Motion Shoulder right Testing Position Standing Flexion 120 Abduction 80 External Rotation at 45 degrees 45 Abduction Internal Rotation Behind Back (text) T 8 PT-OP-M Strength Start: 06/11/21 09:00 Freq: Status: Active Protocol: Document 06/11/21 09:00 [facility] (Rec: 06/11/21 13:07 [facility] [id number]) Shoulder Strength Shoulder Manual Muscle Testing Right Flexion 3 Fair Abduction (C5) 3 Fair External Rotation 4- Good- PT-OP-Q Treatments Start: 06/11/21 09:00 Freq: Status: Active Protocol: Document 09/01/21 10:35 [facility] (Rec: 09/01/21 11:20 [facility] [id number]) Gym Equipment Cable Column (Body Solid) Lat Pull Down Resistance 20 Reps/Time 2 x 10 Rows Resistance 20 Reps/Time 3 x 10 Therapeutic Exercises Supine Exercises pec stretch with bolster Side bilateral Reps/Minutes 1-2 minutes Comments pt has bolster at home, arm straight and shoulder ER by her side shoulder ER stretch Side right Comments pt to use a pillow under her arm to support her shoulder stretching into ER Sidelying Exercises sidelying shoulder ER Reps/Minutes 3 x 10 reps 1 set with 1 # Comments pt fatigues quickly today and needs to rest after 10 reps Standing Exercises serratus anterior wall presses Reps/Minutes 2 x 20 reps standing shoulder abduction with wand Reps/Minutes x 10 reps standing shoulder extension Equipment Used level 1 theraband Reps/Minutes 3 x 10 reps Other Exercises prone thoracic extension Reps/Minutes 2 x 10 reps Manual Therapy Treatment Soft Tissue Mobilization manual pec release Body Location right pec minor Mobilization Type Myofascial Release Comments pt laying over the foam roll for MFR Joint Mobilizations sidelying scapular mobilizations Body Position Sidelying Comments worked on scapula upward rotation, stretching the levator scapula and pec minor PT-OP-T Assessment and Plan Start: 06/11/21 09:00 Freq: Status: Active Protocol: Document 09/01/21 10:35 [facility] (Rec: 09/01/21 12:06 [facility] [id number]) Physical Therapy Assessment Assessment Summary Assessment still working on pec minor release and scapular stabilization. Pt is better but the shoulder is still easily aggravated with things such as lifting and a scrubbing motion Physical Therapy Plan Frequency and Duration Frequency of Treatment 2x/Week Duration of Treatment 12 Plan of Care Start Date 07/23/21 Plan of Care End Date 10/15/21 Therapeutic Interventions Therapeutic Interventions Home Exercise Program,Manual Therapy,Patient/Caregiver Education,Self-Care/Home Management,Sensory Integration ,Soft Tissue Mobilization, Therapeutic Exercises Next Visit Focus/Plan Next Note Type Treatment Note Next Visit Plan continue progressing scapula stabilization, review lat pull down and seated rows that Mireya can do at the pool gym
--- NOTE | 2021-09-08 11:23 | PT.OTN ---
Current Diagnoses Unspecified rotator cuff tear or rupture of right shoulder, not specified as traumatic (09/08/21) Physical Therapy Treatment Note PT-OP-A Visit Information Start: 06/11/21 09:00 Freq: Status: Active Protocol: Document 09/08/21 10:35 [facility] (Rec: 09/08/21 11:21 [facility] [id number]) Out-Patient Physical Therapy Visit Information Visit Information Visit Type Treatment Note Visit Start Time 10:35 Visit Stop Time 11:15 Total Visit Minutes 40 Visit Number 9 PT-OP-B Current Condition Start: 06/11/21 09:00 Freq: Status: Active Protocol: Document 06/11/21 09:03 [facility] (Rec: 06/11/21 09:18 [facility] [id number]) Current Condition History of Current Condition Onset Date March 2021 Current Complaints right shoulder pain History of Current Condition pt reports insidious onset of right sided shoulder pain a few months ago. She has been working at the [employer] in [place] [employer] and this involves lifting boxes and reaching up. She is not sure how she injured her shoulder specifically but feels it is due to lifting and reaching. She will be done with her job the end of May. She has been icing her shoulder and feels this helps. She recently traveled and is more sore now that she is home. Pain is rated 4/10 in her lateral shoulder. Mireya describes difficulties with activities such as opening a jar, reaching and lifting. Treatment Goals Patient/Caregiver Goals [place] goals include decreasing shoulder pain and improving strength/ROM of the right shoulder Current Functional Impairments (Reported) Functional Limitations- ADL's opening a jar or turning a door knob, reaching and lifting over head Functional Limitations- Recreation/ pt reports her shoulder pain Hobbies has moderately interfered with normal social activities PT-OP-C Subjective Start: 06/11/21 09:00 Freq: Status: Active Protocol: Document 09/08/21 10:35 [facility] (Rec: 09/08/21 11:22 [facility] [id number]) OP-PT Subjective Patient Comments Patient Comments pt reports overall she is doing better, she had a massage and had the right side of her deltoids worked out and feel this really helped PT-OP-F Manual Assessment Start: 06/11/21 09:00 Freq: Status: Active Protocol: Document 06/11/21 09:00 [facility] (Rec: 06/11/21 13:19 [facility] [id number]) Manual Assessments Soft Tissue Assessment Soft Tissue Mobility Assessment pec minor and upper trapezius tightness and guarding R>L Joint Mobility Assessment Joint Mobility Assessment decreased posterior glide of the right shoulder with tightness in the posterior shoulder capsule PT-OP-J Posture/Palpation/Skin Start: 06/11/21 09:00 Freq: Status: Active Protocol: Document 06/11/21 09:00 [facility] (Rec: 06/11/21 13:07 [facility] [id number]) Posture Evaluation Comments Posture Comments rounded shoulder posture B with R>L Palpation Assessment Location pec minor Palpation Location tightness of the pec minor on the right Palpation Findings Spasm,Muscle Guarding upper trapezius Palpation Location tenderness over the upper trapezius B Palpation Findings Soft Tissue Tightness,Muscle Guarding,Tenderness tenderness over the lateral deltoid region Palpation Location lateral deltoid Palpation Findings Tenderness,Trigger Point PT-OP-K Range of Motion Start: 06/11/21 09:00 Freq: Status: Active Protocol: Document 06/11/21 09:00 [facility] (Rec: 06/11/21 13:07 [facility] [id number]) Shoulder Goniometric Range of Motion Shoulder right Testing Position Standing Flexion 120 Abduction 80 External Rotation at 45 degrees 45 Abduction Internal Rotation Behind Back (text) T 8 PT-OP-M Strength Start: 06/11/21 09:00 Freq: Status: Active Protocol: Document 06/11/21 09:00 [facility] (Rec: 06/11/21 13:07 [facility] [id number]) Shoulder Strength Shoulder Manual Muscle Testing Right Flexion 3 Fair Abduction (C5) 3 Fair External Rotation 4- Good- PT-OP-Q Treatments Start: 06/11/21 09:00 Freq: Status: Active Protocol: Document 09/08/21 10:35 [facility] (Rec: 09/08/21 11:21 [facility] [id number]) Gym Equipment Cable Column (Body Solid) Lat Pull Down Resistance 20 Reps/Time 2 x 10 Rows Resistance 20 Reps/Time 3 x 10 Therapeutic Exercises Supine Exercises shoulder IR Reps/Minutes 3x10 IR pec stretch with bolster Side bilateral Reps/Minutes 1-2 minutes Comments pt has bolster at home, arm straight and shoulder ER by her side Sidelying Exercises sidelying shoulder ER Reps/Minutes 3 x 10 reps 1 set with 1 # Comments pt fatigues quickly today and needs to rest after 10 reps Other Exercises prone thoracic extension Reps/Minutes 2 x 10 reps Manual Therapy Treatment Soft Tissue Mobilization manual pec release Body Location right pec minor Mobilization Type Myofascial Release Comments pt laying over the foam roll for MFR Joint Mobilizations sidelying scapular mobilizations Body Position Sidelying Comments worked on scapula upward rotation, stretching the levator scapula and pec minor Manual Techniques inferior and posterior capsule shoulder glides R Body Location right shoulder Body Position Sitting Comments good tolerance and inferior glides helped with active ROM into shoulder abduction manual shoulder IR/ER with end range stretching Reps/Duration manual shoulder IR/ER with end range stretching PT-OP-T Assessment and Plan Start: 06/11/21 09:00 Freq: Status: Active Protocol: Document 09/08/21 10:35 [facility] (Rec: 09/08/21 11:21 [facility] [id number]) Physical Therapy Assessment Assessment Summary Assessment pec minor was not as tight today and Mireya could work into full ER on the foam roll. She did have tenderness with the SA presses but is doing better overall Physical Therapy Plan Frequency and Duration Frequency of Treatment 2x/Week Duration of Treatment 12 Plan of Care Start Date 07/23/21 Plan of Care End Date 10/15/21 Therapeutic Interventions Therapeutic Interventions Home Exercise Program,Manual Therapy,Patient/Caregiver Education,Self-Care/Home Management,Sensory Integration ,Soft Tissue Mobilization, Therapeutic Exercises Next Visit Focus/Plan Next Note Type Treatment Note Next Visit Plan continue progressing scapula stabilization and rotator cuff strengthening
--- NOTE | 2021-09-15 17:00 | PT.OTN ---
Current Diagnoses Unspecified rotator cuff tear or rupture of right shoulder, not specified as traumatic (09/15/21) Physical Therapy Treatment Note PT-OP-A Visit Information Start: 06/11/21 09:00 Freq: Status: Active Protocol: Document 09/15/21 10:40 [facility] (Rec: 09/15/21 10:40 [facility] [id number]) Out-Patient Physical Therapy Visit Information Visit Information Visit Type Treatment Note Visit Start Time 10:35 Visit Stop Time 11:20 Total Visit Minutes 45 Visit Number 10 PT-OP-B Current Condition Start: 06/11/21 09:00 Freq: Status: Active Protocol: Document 06/11/21 09:03 [facility] (Rec: 06/11/21 09:18 [facility] [id number]) Current Condition History of Current Condition Onset Date March 2021 Current Complaints right shoulder pain History of Current Condition pt reports insidious onset of right sided shoulder pain a few months ago. She has been working at the [employer] in [employer] and this involves lifting boxes and reaching up. She is not sure how she injured her shoulder specifically but feels it is due to lifting and reaching. She will be done with her job the end of May. She has been icing her shoulder and feels this helps. She recently traveled and is more sore now that she is home. Pain is rated 4/10 in her lateral shoulder. Mireya describes difficulties with activities such as opening a jar, reaching and lifting. Treatment Goals Patient/Caregiver Goals Alex goals include decreasing shoulder pain and improving strength/ROM of the right shoulder Current Functional Impairments (Reported) Functional Limitations- ADL's opening a jar or turning a door knob, reaching and lifting over head Functional Limitations- Recreation/ pt reports her shoulder pain Hobbies has moderately interfered with normal social activities PT-OP-C Subjective Start: 06/11/21 09:00 Freq: Status: Active Protocol: Document 09/15/21 10:40 [facility] (Rec: 09/15/21 10:40 [facility] [id number]) OP-PT Subjective Patient Comments Patient Comments pt reports her shoulder is doing pretty good today, she worked at the [employer] and climbed ladders and only has a little acheyness in her neck PT-OP-F Manual Assessment Start: 06/11/21 09:00 Freq: Status: Active Protocol: Document 06/11/21 09:00 [facility] (Rec: 06/11/21 13:19 [facility] [id number]) Manual Assessments Soft Tissue Assessment Soft Tissue Mobility Assessment pec minor and upper trapezius tightness and guarding R>L Joint Mobility Assessment Joint Mobility Assessment decreased posterior glide of the right shoulder with tightness in the posterior shoulder capsule PT-OP-J Posture/Palpation/Skin Start: 06/11/21 09:00 Freq: Status: Active Protocol: Document 06/11/21 09:00 [facility] (Rec: 06/11/21 13:07 [facility] [id number]) Posture Evaluation Comments Posture Comments rounded shoulder posture B with R>L Palpation Assessment Location pec minor Palpation Location tightness of the pec minor on the right Palpation Findings Spasm,Muscle Guarding upper trapezius Palpation Location tenderness over the upper trapezius B Palpation Findings Soft Tissue Tightness,Muscle Guarding,Tenderness tenderness over the lateral deltoid region Palpation Location lateral deltoid Palpation Findings Tenderness,Trigger Point PT-OP-K Range of Motion Start: 06/11/21 09:00 Freq: Status: Active Protocol: Document 06/11/21 09:00 [facility] (Rec: 06/11/21 13:07 [facility] [id number]) Shoulder Goniometric Range of Motion Shoulder right Testing Position Standing Flexion 120 Abduction 80 External Rotation at 45 degrees 45 Abduction Internal Rotation Behind Back (text) T 8 PT-OP-M Strength Start: 06/11/21 09:00 Freq: Status: Active Protocol: Document 06/11/21 09:00 [facility] (Rec: 06/11/21 13:07 [facility] [id number]) Shoulder Strength Shoulder Manual Muscle Testing Right Flexion 3 Fair Abduction (C5) 3 Fair External Rotation 4- Good- PT-OP-Q Treatments Start: 06/11/21 09:00 Freq: Status: Active Protocol: Document 09/15/21 10:35 [facility] (Rec: 09/15/21 16:59 [facility] [id number]) Gym Equipment Cable Column (Body Solid) Lat Pull Down Resistance 20 Reps/Time 2 x 10 Rows Resistance 20 Reps/Time 3 x 10 Therapeutic Exercises Supine Exercises shoulder ER stretch Side right Comments no longer requires a pillow Sidelying Exercises sidelying shoulder ER Reps/Minutes 3 x 10 reps 1 set with 1 # Comments pt fatigues quickly today and needs to rest after 10 reps Standing Exercises standing shoulder abduction Reps/Minutes x 20 reps Comments no pain standing shoulder abduction with wand Reps/Minutes x 10 reps Other Exercises prone thoracic extension Reps/Minutes 2 x 10 reps PT-OP-T Assessment and Plan Start: 06/11/21 09:00 Freq: Status: Active Protocol: Document 09/15/21 10:35 [facility] (Rec: 09/15/21 16:59 [facility] [id number]) Physical Therapy Assessment Assessment Summary Assessment Mireya continues to progress and has more days painfree now Physical Therapy Plan Frequency and Duration Frequency of Treatment 2x/Week Duration of Treatment 12 Plan of Care Start Date 07/23/21 Plan of Care End Date 10/15/21 Therapeutic Interventions Therapeutic Interventions Home Exercise Program,Manual Therapy,Patient/Caregiver Education,Self-Care/Home Management,Sensory Integration ,Soft Tissue Mobilization, Therapeutic Exercises Next Visit Focus/Plan Next Note Type Treatment Note Next Visit Plan continue progressing scapula stabilization and rotator cuff strengthening
--- NOTE | 2021-09-29 17:40 | PT.OTN ---
Current Diagnoses Unspecified rotator cuff tear or rupture of right shoulder, not specified as traumatic (09/29/21) Physical Therapy Treatment Note PT-OP-A Visit Information Start: 06/11/21 09:00 Freq: Status: Active Protocol: Document 09/29/21 10:30 [facility] (Rec: 09/29/21 10:34 [facility] [id number]) Out-Patient Physical Therapy Visit Information Visit Information Visit Type Treatment Note Visit Start Time 10:30 Visit Stop Time 11:15 Total Visit Minutes 45 Visit Number 11 PT-OP-B Current Condition Start: 06/11/21 09:00 Freq: Status: Active Protocol: Document 06/11/21 09:03 [facility] (Rec: 06/11/21 09:18 [facility] [id number]) Current Condition History of Current Condition Onset Date March 2021 Current Complaints right shoulder pain History of Current Condition pt reports insidious onset of right sided shoulder pain a few months ago. She has been working at the [employer] in [employer] and this involves lifting boxes and reaching up. She is not sure how she injured her shoulder specifically but feels it is due to lifting and reaching. She will be done with her job the end of May. She has been icing her shoulder and feels this helps. She recently traveled and is more sore now that she is home. Pain is rated 4/10 in her lateral shoulder. Mireya describes difficulties with activities such as opening a jar, reaching and lifting. Treatment Goals Patient/Caregiver Goals Alex goals include decreasing shoulder pain and improving strength/ROM of the right shoulder Current Functional Impairments (Reported) Functional Limitations- ADL's opening a jar or turning a door knob, reaching and lifting over head Functional Limitations- Recreation/ pt reports her shoulder pain Hobbies has moderately interfered with normal social activities PT-OP-C Subjective Start: 06/11/21 09:00 Freq: Status: Active Protocol: Document 09/29/21 10:30 [facility] (Rec: 09/29/21 10:34 [facility] [id number]) OP-PT Subjective Patient Comments Patient Comments pt reports she is doing really good and able to tolerate the pool aquatic program, overall her shoulder is feeling better with improved ROM and no pain today Patient Reported Progress Improving PT-OP-F Manual Assessment Start: 06/11/21 09:00 Freq: Status: Active Protocol: Document 06/11/21 09:00 [facility] (Rec: 06/11/21 13:19 [facility] [id number]) Manual Assessments Soft Tissue Assessment Soft Tissue Mobility Assessment pec minor and upper trapezius tightness and guarding R>L Joint Mobility Assessment Joint Mobility Assessment decreased posterior glide of the right shoulder with tightness in the posterior shoulder capsule PT-OP-J Posture/Palpation/Skin Start: 06/11/21 09:00 Freq: Status: Active Protocol: Document 06/11/21 09:00 [facility] (Rec: 06/11/21 13:07 [facility] [id number]) Posture Evaluation Comments Posture Comments rounded shoulder posture B with R>L Palpation Assessment Location pec minor Palpation Location tightness of the pec minor on the right Palpation Findings Spasm,Muscle Guarding upper trapezius Palpation Location tenderness over the upper trapezius B Palpation Findings Soft Tissue Tightness,Muscle Guarding,Tenderness tenderness over the lateral deltoid region Palpation Location lateral deltoid Palpation Findings Tenderness,Trigger Point PT-OP-K Range of Motion Start: 06/11/21 09:00 Freq: Status: Active Protocol: Document 06/11/21 09:00 [facility] (Rec: 06/11/21 13:07 [facility] [id number]) Shoulder Goniometric Range of Motion Shoulder right Testing Position Standing Flexion 120 Abduction 80 External Rotation at 45 degrees 45 Abduction Internal Rotation Behind Back (text) T 8 PT-OP-M Strength Start: 06/11/21 09:00 Freq: Status: Active Protocol: Document 06/11/21 09:00 [facility] (Rec: 06/11/21 13:07 [facility] [id number]) Shoulder Strength Shoulder Manual Muscle Testing Right Flexion 3 Fair Abduction (C5) 3 Fair External Rotation 4- Good- PT-OP-Q Treatments Start: 06/11/21 09:00 Freq: Status: Active Protocol: Document 09/29/21 10:30 [facility] (Rec: 09/29/21 11:15 [facility] [id number]) Gym Equipment Cable Column (Body Solid) Lat Pull Down Resistance 20 Reps/Time 3 x 10 Rows Resistance 20 Reps/Time 3 x 10 Therapeutic Exercises Supine Exercises shoulder ER stretch Side right Comments no longer requires a pillow Sidelying Exercises sidelying shoulder ER Reps/Minutes 3 x 10 reps 1 set with 1 # Comments pt fatigues quickly today and needs to rest after 10 reps Standing Exercises standing wall slides Reps/Minutes x 5 serratus anterior wall presses Reps/Minutes 2 x 20 reps Other Exercises prone thoracic extension Reps/Minutes 2 x 10 reps juliana pose with shoulders extended Reps/Minutes hold 1 min each direction thread scott needle Reps/Minutes x2 Manual Therapy Treatment Soft Tissue Mobilization manual pec release Body Location right pec minor Mobilization Type Myofascial Release Joint Mobilizations sidelying scapular mobilizations Body Position Sidelying Comments worked on scapula upward rotation, stretching the levator scapula and pec minor PT-OP-T Assessment and Plan Start: 06/11/21 09:00 Freq: Status: Active Protocol: Document 09/29/21 10:30 [facility] (Rec: 09/29/21 11:15 [facility] [id number]) Physical Therapy Assessment Goals 4 Impairment Decreased strength of the right shoulder Project Management Analyst Goal (LTG) Mireya is able to increase her right sided shoulder strength to 4+/5 or better for improved shoulder stabilization 09/29/21 excellent progress, ER still limited at 4/5 LTG Duration 8 weeks 3 Impairment shoulder pain with opening a jar or turning a doorknob Project Management Analyst Goal (LTG) Mireya is able to perform all ADL's including opening a jar without c/o pain 09/29/21 goal met LTG Duration 8 weeks 2 Impairment right sided shoulder pain rated 4/10 Project Management Analyst Goal (LTG) Mireya presents with overall decreased shoulder pain 0-1/10 09/29/21 today pt reports no pain, she has been careful avoiding lifting heavy objects LTG Duration 8 weeks 1 Impairment Decreased shoulder ROM and pain with reaching overhead Short Term Goal (STG) Mireya is able to tolerate pain free AAROM of the right shoulder and is able to be WFL for all shoulder ROM 07/23/21 Excellent progress STG Duration 4 weeks Senior Living Goal (LTG) Mireya is able to perform full pain free active ROM of her right shoulder without c/o pain LTG Duration 8 weeks Assessment Summary Assessment Mireya is doing much better overall, still some tightness in the pec minor but no complaints of pain today. She will be on vacation until October and has one visit left in PT. I am extending her plan of care Physical Therapy Plan Frequency and Duration Frequency of Treatment 2x/Week Duration of Treatment 8 Plan of Care Start Date 09/29/21 Plan of Care End Date 11/27/21 Therapeutic Interventions Therapeutic Interventions Home Exercise Program,Manual Therapy,Patient/Caregiver Education,Self-Care/Home Management,Sensory Integration ,Soft Tissue Mobilization, Therapeutic Exercises Next Visit Focus/Plan Next Note Type Treatment Note Next Visit Plan review all exercises and push up position for yoga
--- NOTE | 2021-09-29 17:40 | PT.OPPOC ---
Physical, Occupational & Speech Therapy At [facility] Current Diagnoses Unspecified rotator cuff tear or rupture of right shoulder, not specified as traumatic (09/29/21) Visit Care Team Role Provider Type Chris Serrano MD Attending Provider Non-Staff Family Provider Primary Care Provider Referring Provider Specialty: Orthopedic Surgery Address: [address] [place] [address], [facility] Email: Plan Of Care PT-OP-T Assessment and Plan Start: 06/11/21 09:00 Freq: Status: Active Protocol: Document 09/29/21 10:30 [facility] (Rec: 09/29/21 11:15 [facility] [id number]) Physical Therapy Assessment Goals 4 Impairment Decreased strength of the right shoulder Retirement Goal (LTG) Mireya is able to increase her right sided shoulder strength to 4+/5 or better for improved shoulder stabilization 09/29/21 excellent progress, ER still limited at 4/5 LTG Duration 8 weeks 3 Impairment shoulder pain with opening a jar or turning a doorknob Retirement Goal (LTG) Mireya is able to perform all ADL's including opening a jar without c/o pain 09/29/21 goal met LTG Duration 8 weeks 2 Impairment right sided shoulder pain rated 4/10 Retirement Goal (LTG) Mireya presents with overall decreased shoulder pain 0-1/10 09/29/21 today pt reports no pain, she has been careful avoiding lifting heavy objects LTG Duration 8 weeks 1 Impairment Decreased shoulder ROM and pain with reaching overhead Short Term Goal (STG) Mireya is able to tolerate pain free AAROM of the right shoulder and is able to be WFL for all shoulder ROM 07/23/21 Excellent progress STG Duration 4 weeks Refuse Collector Goal (LTG) Mireya is able to perform full pain free active ROM of her right shoulder without c/o pain LTG Duration 8 weeks Assessment Summary Assessment Mireya is doing much better overall, still some tightness in the pec minor but no complaints of pain today. She will be on vacation until October and has one visit left in PT. I am extending her plan of care Physical Therapy Plan Frequency and Duration Frequency of Treatment 2x/Week Duration of Treatment 8 Plan of Care Start Date 09/29/21 Plan of Care End Date 11/27/21 Therapeutic Interventions Therapeutic Interventions Home Exercise Program,Manual Therapy,Patient/Caregiver Education,Self-Care/Home Management,Sensory Integration ,Soft Tissue Mobilization, Therapeutic Exercises Next Visit Focus/Plan Next Note Type Treatment Note Next Visit Plan review all exercises and push up position for yoga Plan of Care Dates Plan of Care Start Date 09/29/21 Plan of Care End Date 11/27/21 Electronically Signed by: Lorena Gaffney, PT 09/29/21 [id number] Please Sign and Return: I have reviewed this Plan of Care and certify that the skilled therapy services above are required to meet the patient?s needs. Physician Signature Date Printed Name and Credentials Clinical Instructor Signature Printed Name and Credentials
--- NOTE | 2021-11-10 09:45 | PT.OTN ---
Current Diagnoses Unspecified rotator cuff tear or rupture of right shoulder, not specified as traumatic (11/10/21) Physical Therapy Treatment Note PT-OP-A Visit Information Start: 06/11/21 09:00 Freq: Status: Active Protocol: Document 11/10/21 09:03 [facility] (Rec: 11/10/21 09:45 [facility] [id number]) Out-Patient Physical Therapy Visit Information Visit Information Visit Type Progress Note Visit Start Time 09:00 Visit Stop Time 09:45 Total Visit Minutes 45 Visit Number 12 PT-OP-B Current Condition Start: 06/11/21 09:00 Freq: Status: Active Protocol: Document 06/11/21 09:03 [facility] (Rec: 06/11/21 09:18 [facility] [id number]) Current Condition History of Current Condition Onset Date March 2021 Current Complaints right shoulder pain History of Current Condition pt reports insidious onset of right sided shoulder pain a few months ago. She has been working at the [employer] in [employer] and this involves lifting boxes and reaching up. She is not sure how she injured her shoulder specifically but feels it is due to lifting and reaching. She will be done with her job the end of May. She has been icing her shoulder and feels this helps. She recently traveled and is more sore now that she is home. Pain is rated 4/10 in her lateral shoulder. Mireya describes difficulties with activities such as opening a jar, reaching and lifting. Treatment Goals Patient/Caregiver Goals Alex goals include decreasing shoulder pain and improving strength/ROM of the right shoulder Current Functional Impairments (Reported) Functional Limitations- ADL's opening a jar or turning a door knob, reaching and lifting over head Functional Limitations- Recreation/ pt reports her shoulder pain Hobbies has moderately interfered with normal social activities PT-OP-C Subjective Start: 06/11/21 09:00 Freq: Status: Active Protocol: Document 11/10/21 09:03 [facility] (Rec: 11/10/21 09:45 [facility] [id number]) OP-PT Subjective Patient Comments Patient Comments pt reports she did really well with her shoulder on her trip , when she got home she had to carry some boxes and it was the first time she thought about her shoulder. She was able to pull her luggage without symptoms. PT-OP-F Manual Assessment Start: 06/11/21 09:00 Freq: Status: Active Protocol: Document 06/11/21 09:00 [facility] (Rec: 06/11/21 13:19 [facility] [id number]) Manual Assessments Soft Tissue Assessment Soft Tissue Mobility Assessment pec minor and upper trapezius tightness and guarding R>L Joint Mobility Assessment Joint Mobility Assessment decreased posterior glide of the right shoulder with tightness in the posterior shoulder capsule PT-OP-J Posture/Palpation/Skin Start: 06/11/21 09:00 Freq: Status: Active Protocol: Document 06/11/21 09:00 [facility] (Rec: 06/11/21 13:07 [facility] [id number]) Posture Evaluation Comments Posture Comments rounded shoulder posture B with R>L Palpation Assessment Location pec minor Palpation Location tightness of the pec minor on the right Palpation Findings Spasm,Muscle Guarding upper trapezius Palpation Location tenderness over the upper trapezius B Palpation Findings Soft Tissue Tightness,Muscle Guarding,Tenderness tenderness over the lateral deltoid region Palpation Location lateral deltoid Palpation Findings Tenderness,Trigger Point PT-OP-K Range of Motion Start: 06/11/21 09:00 Freq: Status: Active Protocol: Document 06/11/21 09:00 [facility] (Rec: 06/11/21 13:07 [facility] [id number]) Shoulder Goniometric Range of Motion Shoulder right Testing Position Standing Flexion 120 Abduction 80 External Rotation at 45 degrees 45 Abduction Internal Rotation Behind Back (text) T 8 PT-OP-M Strength Start: 06/11/21 09:00 Freq: Status: Active Protocol: Document 06/11/21 09:00 [facility] (Rec: 06/11/21 13:07 [facility] [id number]) Shoulder Strength Shoulder Manual Muscle Testing Right Flexion 3 Fair Abduction (C5) 3 Fair External Rotation 4- Good- PT-OP-Q Treatments Start: 06/11/21 09:00 Freq: Status: Active Protocol: Document 11/10/21 09:03 [facility] (Rec: 11/10/21 09:45 [facility] [id number]) Gym Equipment Cable Column (Body Solid) Lat Pull Down Resistance 20 Reps/Time 3 x 10 Rows Resistance 20 Reps/Time 3 x 10 Therapeutic Exercises Sidelying Exercises sidelying shoulder ER Reps/Minutes 3 x 10 Comments able to complete all 3 sets Other Exercises prone thoracic extension Reps/Minutes 2 x 10 reps juliana pose with shoulders extended Reps/Minutes hold 1 min each direction thread scott needle Reps/Minutes x2 Manual Therapy Treatment Soft Tissue Mobilization manual pec release Body Location right pec minor Mobilization Type Sustained Pressure Comments manual stretch Joint Mobilizations sidelying scapular mobilizations Body Position Sidelying Comments worked on scapula upward rotation, stretching the levator scapula and pec minor PT-OP-T Assessment and Plan Start: 06/11/21 09:00 Freq: Status: Active Protocol: Document 11/10/21 09:03 [facility] (Rec: 11/10/21 09:45 [facility] [id number]) Physical Therapy Assessment Goals 4 Impairment Decreased strength of the right shoulder Alf Goal (LTG) Mireya is able to increase her right sided shoulder strength to 4+/5 or better for improved shoulder stabilization 09/29/21 excellent progress, ER still limited at 4/5 LTG Duration 8 weeks 3 Impairment shoulder pain with opening a jar or turning a doorknob Therapeutic Riding Instructor Goal (LTG) Mireya is able to perform all ADL's including opening a jar without c/o pain 09/29/21 goal met LTG Duration 8 weeks 2 Impairment right sided shoulder pain rated 4/10 Therapeutic Riding Instructor Goal (LTG) Mireya presents with overall decreased shoulder pain 0-1/10 GOAL MET 09/29/21 today pt reports no pain, she has been careful avoiding lifting heavy objects LTG Duration 8 weeks 1 Impairment Decreased shoulder ROM and pain with reaching overhead Short Term Goal (STG) Mireya is able to tolerate pain free AAROM of the right shoulder and is able to be WFL for all shoulder ROM 07/23/21 Excellent progress STG Duration 4 weeks Therapeutic Riding Instructor Goal (LTG) Mireya is able to perform full pain free active ROM of her right shoulder without c/o pain LTG Duration 8 weeks Progress Towards Goals Progress Towards Goals Goals Met Assessment Summary Assessment Debora has met all established goals she will be dishcarged from PT at this time Physical Therapy Plan Discharge Physical Therapy Discharge Reasons Goals Met
--- NOTE | 2021-11-10 12:53 | PT.OPDS ---
Current Diagnoses Unspecified rotator cuff tear or rupture of right shoulder, not specified as traumatic (11/10/21) Visit Care Team Role Provider Type Chris Serrano MD Attending Provider Non-Staff Family Provider Primary Care Provider Referring Provider Specialty: Orthopedic Surgery Address: [address] [place] [address], [id number] Email: Visit Number Visit Number 12 Discharge Summary PT-OP-B Current Condition Start: 06/11/21 09:00 Freq: Status: Active Protocol: Document 06/11/21 09:03 [facility] (Rec: 06/11/21 09:18 [facility] [id number]) Current Condition History of Current Condition Onset Date March 2021 Current Complaints right shoulder pain History of Current Condition pt reports insidious onset of right sided shoulder pain a few months ago. She has been working at the [employer] in [place] and this involves lifting boxes and reaching up. She is not sure how she injured her shoulder specifically but feels it is due to lifting and reaching. She will be done with her job the end of May. She has been icing her shoulder and feels this helps. She recently traveled and is more sore now that she is home. Pain is rated 4/10 in her lateral shoulder. Mireya describes difficulties with activities such as opening a jar, reaching and lifting. Treatment Goals Patient/Caregiver Goals Alex goals include decreasing shoulder pain and improving strength/ROM of the right shoulder Current Functional Impairments (Reported) Functional Limitations- ADL's opening a jar or turning a door knob, reaching and lifting over head Functional Limitations- Recreation/ pt reports her shoulder pain Hobbies has moderately interfered with normal social activities PT-OP-C Subjective Start: 06/11/21 09:00 Freq: Status: Active Protocol: Document 11/10/21 09:03 [facility] (Rec: 11/10/21 09:45 [facility] [id number]) OP-PT Subjective Patient Comments Patient Comments pt reports she did really well with her shoulder on her trip , when she got home she had to carry some boxes and it was the first time she thought about her shoulder. She was able to pull her luggage without symptoms. PT-OP-F Manual Assessment Start: 06/11/21 09:00 Freq: Status: Active Protocol: Document 06/11/21 09:00 [facility] (Rec: 06/11/21 13:19 [facility] [id number]) Manual Assessments Soft Tissue Assessment Soft Tissue Mobility Assessment pec minor and upper trapezius tightness and guarding R>L Joint Mobility Assessment Joint Mobility Assessment decreased posterior glide of the right shoulder with tightness in the posterior shoulder capsule PT-OP-J Posture/Palpation/Skin Start: 06/11/21 09:00 Freq: Status: Active Protocol: Document 06/11/21 09:00 [facility] (Rec: 06/11/21 13:07 [facility] [id number]) Posture Evaluation Comments Posture Comments rounded shoulder posture B with R>L Palpation Assessment Location pec minor Palpation Location tightness of the pec minor on the right Palpation Findings Spasm,Muscle Guarding upper trapezius Palpation Location tenderness over the upper trapezius B Palpation Findings Soft Tissue Tightness,Muscle Guarding,Tenderness tenderness over the lateral deltoid region Palpation Location lateral deltoid Palpation Findings Tenderness,Trigger Point PT-OP-K Range of Motion Start: 06/11/21 09:00 Freq: Status: Active Protocol: Document 06/11/21 09:00 [facility] (Rec: 06/11/21 13:07 [facility] [id number]) Shoulder Goniometric Range of Motion Shoulder right Testing Position Standing Flexion 120 Abduction 80 External Rotation at 45 degrees 45 Abduction Internal Rotation Behind Back (text) T 8 PT-OP-M Strength Start: 06/11/21 09:00 Freq: Status: Active Protocol: Document 06/11/21 09:00 [facility] (Rec: 06/11/21 13:07 [facility] [id number]) Shoulder Strength Shoulder Manual Muscle Testing Right Flexion 3 Fair Abduction (C5) 3 Fair External Rotation 4- Good- PT-OP-T Assessment and Plan Start: 06/11/21 09:00 Freq: Status: Active Protocol: Document 11/10/21 09:03 [facility] (Rec: 11/10/21 09:45 [facility] [id number]) Physical Therapy Assessment Goals 4 Impairment Decreased strength of the right shoulder Hand Riveter Goal (LTG) Mireya is able to increase her right sided shoulder strength to 4+/5 or better for improved shoulder stabilization 09/29/21 excellent progress, ER still limited at 4/5 LTG Duration 8 weeks 3 Impairment shoulder pain with opening a jar or turning a doorknob Hand Riveter Goal (LTG) Mireya is able to perform all ADL's including opening a jar without c/o pain 09/29/21 goal met LTG Duration 8 weeks 2 Impairment right sided shoulder pain rated 4/10 Fpc Goal (LTG) Mireya presents with overall decreased shoulder pain 0-10 GOAL MET 09/29/21 today pt reports no pain, she has been careful avoiding lifting heavy objects LTG Duration 8 weeks 1 Impairment Decreased shoulder ROM and pain with reaching overhead Short Term Goal (STG) Mireya is able to tolerate pain free AAROM of the right shoulder and is able to be WFL for all shoulder ROM 07/23/21 Excellent progress STG Duration 4 weeks Hand Riveter Goal (LTG) Mireya is able to perform full pain free active ROM of her right shoulder without c/o pain LTG Duration 8 weeks Progress Towards Goals Progress Towards Goals Goals Met Assessment Summary Assessment Debora has met all established goals she will be dishcarged from PT at this time Physical Therapy Plan Discharge Physical Therapy Discharge Reasons Goals Met
== END | disposition home or self-care (01) ==
LOC: PHYS 06-11 08:46
PROVIDERS: Family Provider Orthopaedic Surgery Sports Medicine; PCP Orthopaedic Surgery Sports Medicine; Referring Provider Orthopaedic Surgery Sports Medicine; Visit Provider Orthopaedic Surgery Sports Medicine
DX: M75.101 Unspecified rotator cuff tear or rupture of right shoulder, not specified as traumatic (principal)
CPT/HCPCS: 97110; 97140; 97161

== ENCOUNTER 2023-09-29 14:11 | Outpatient (RCR) | payer MEDICARE, OTHER, SELFPAY ==
--- NOTE | 2023-09-29 16:00 | PT.OPPOC ---
Physical, Occupational & Speech Therapy At [facility] Current Diagnoses Outlet dysfunction constipation (09/29/23) Segmental and somatic dysfunction of pelvic region (09/29/23) Female genital prolapse, unspecified (09/29/23) Visit Care Team Role Provider Type PREICOUS Peace Family Provider Advanced Sprinkling System Irrigator Primary Care Provider Specialty: Family Practice Address: [address] [facility], [facility] [place], [address] Email: [email or web address] Kendal Elliott MD Attending Provider Non-Staff Referring Provider Specialty: Colon & Rectal Surgery Address: [address], [address], [facility] Email: Plan Of Care PT-OP-T Assessment and Plan Start: 09/29/23 14:32 Freq: Status: Active Protocol: Document 09/29/23 14:30 [facility] (Rec: 10/11/23 09:15 [facility] [id number]) Physical Therapy Assessment Goals One Impairment Mireya is undergoing surgery for pelvic organ prolapse repair and needs a pre-op strengthening program Short Term Goal (STG) 4 weeks Mails Supervisor Goal (LTG) Mireya feels independent with a HEP prior to surgery Assessment Summary Assessment Mireya is a 78 year old female referred to PT for a pre operative appointment for her upcoming robotic ventral rectopexy and sacrocolpopexy. Her surgery is scheduled December 01 at [facility]. Mireya has a history of a symptomatic rectocele after hysterectomy. She has had previous Physical therapy here in the past and seeks consult to review her home exercise program. Mireya has been working on her previous exercises in PT and these were reviewed with her today. Mireya has good awareness of her HEP. We also reviewed body mechanics for following surgery and pt was educated on avoiding straining and lifting. She will continue working on the strength of her pelvic floor prior to surgery and will be a good candidate for pelvic floor PT following her pelvic organ prolapse repairs. Mireya will make a follow up after her surgery for re-evaluation Physical Therapy Plan Frequency and Duration Frequency of Treatment 1x/Week Duration of treatment (weeks) 12 Plan of Care Start Date 09/29/23 Plan of Care End Date 12/22/23 Therapeutic Interventions Therapeutic Interventions Home Exercise Program, Neuromuscular Re-education, Self-Care/Home Management, Therapeutic Exercises Modalities Biofeedback Next Visit Focus/Plan Next Note Type Re-Evaluation Next Visit Plan Assessment of pelvic floor strength following surgery and EMG biofeedback for pelvic floor strengthening Plan of Care Dates Plan of Care Start Date 09/29/23 Plan of Care End Date 12/22/23 Electronically Signed by: Lorena Gaffney, PT 10/11/23 1411 If you are in agreement with this Plan of Care, please return a signed and dated copy. I have reviewed this Plan of Care and certify that the skilled therapy services above are required to meet the patient?s needs. Physician Signature Date Printed Name and Credentials Clinical Instructor Signature Printed Name and Credentials
--- NOTE | 2023-09-29 16:00 | PT.OIE ---
Current Diagnoses Outlet dysfunction constipation (09/29/23) Segmental and somatic dysfunction of pelvic region (09/29/23) Female genital prolapse, unspecified (09/29/23) Visit Care Team Role Provider Type PRECIOUS Peace Family Provider Advanced Dragger Out Primary Care Provider Specialty: Family Practice Address: [address], [facility] [place], [address] Email: [email or web address] Kendal Elliott MD Attending Provider Non-Staff Referring Provider Specialty: Colon & Rectal Surgery Address: [address] [place], [address], [address] Email: Physical Therapy Initial Evaluation PT-OP-A Visit Information Start: 09/29/23 14:32 Freq: Status: Active Protocol: Document 09/29/23 14:30 [facility] (Rec: 09/29/23 14:56 [facility] [id number]) Out-Patient Physical Therapy Visit Information Visit Information Visit Type Initial Evaluation Visit Start Time 14:34 Visit Stop Time 15:15 Visit Number 1 Evaluation Information Evaluation Date 09/29/23 PT-OP-B Current Condition Start: 09/29/23 14:32 Freq: Status: Active Protocol: Document 09/29/23 14:30 [facility] (Rec: 09/29/23 14:56 [facility] [id number]) Current Condition History of Current Condition Onset Date chronic Current Complaints pelvic heaviness and pressure History of Current Condition pt is having surgery to repair the rectocele and cystocele December 01 at [facility]. She has a follow up with her MD a week after her surgery. Every morning she takes a large teaspoon of calm and a probiotic. This helps her every morning to empty her bowels. She will take 4-6 weeks off work as her job is a standing job. Treatment Goals Patient/Caregiver Goals pt wants to go back to playing pickle ball PT-OP-C Subjective Start: 09/29/23 14:32 Freq: Status: Active Protocol: Document 09/29/23 14:30 [facility] (Rec: 10/11/23 09:57 [facility] [id number]) Patient Questionnaires Pelvic Pain and Urgency/Frequency Patient Symptom Scale Pelvic Pain Score 4 PT-OP-I Pelvic Floor Start: 09/29/23 14:32 Freq: Status: Active Protocol: Document 09/29/23 14:30 [facility] (Rec: 10/11/23 10:05 [facility] [id number]) Pelvic Floor Assessment Urine Pelvic Floor Surgery hysterectomy Other Urinary Symptoms pelvic heaviness and pressure with pelvic organ prolpase and leakage with strong cough and or sneeze PT-OP-Q Treatments Start: 09/29/23 14:32 Freq: Status: Active Protocol: Document 09/29/23 14:30 [facility] (Rec: 10/11/23 09:59 [facility] [id number]) Therapeutic Exercises Supine Exercises hip roll outs Reps/Minutes x 10 reps with theraband ball squeeze Reps/Minutes x 10 reps holding 5 sec pelvic floor quick flicks Reps/Minutes x 10 reps pelvic floor long holds Reps/Minutes 10 reps holding 10 seconds and relaxing 10 sec PT-OP-T Assessment and Plan Start: 09/29/23 14:32 Freq: Status: Active Protocol: Document 09/29/23 14:30 [facility] (Rec: 10/11/23 09:15 [facility] [id number]) Physical Therapy Assessment Goals One Impairment Mireya is undergoing surgery for pelvic organ prolapse repair and needs a pre-op strengthening program Short Term Goal (STG) 4 weeks [facility] Goal (LTG) Mireya feels independent with a HEP prior to surgery Assessment Summary Assessment Mireya is a 78 year old female referred to PT for a pre operative appointment for her upcoming robotic ventral rectopexy and sacrocolpopexy. Her surgery is scheduled December 01 at [facility]. Mireya has a history of a symptomatic rectocele after hysterectomy. She has had previous Physical therapy here in the past and seeks consult to review her home exercise program. Mireya has been working on her previous exercises in PT and these were reviewed with her today. Mireya has good awareness of her HEP. We also reviewed body mechanics for following surgery and pt was educated on avoiding straining and lifting. She will continue working on the strength of her pelvic floor prior to surgery and will be a good candidate for pelvic floor PT following her pelvic organ prolapse repairs. Mireya will make a follow up after her surgery for re-evaluation Physical Therapy Plan Frequency and Duration Frequency of Treatment 1x/Week Duration of treatment (weeks) 12 Plan of Care Start Date 09/29/23 Plan of Care End Date 12/22/23 Therapeutic Interventions Therapeutic Interventions Home Exercise Program, Neuromuscular Re-education, Self-Care/Home Management, Therapeutic Exercises Modalities Biofeedback Next Visit Focus/Plan Next Note Type Re-Evaluation Next Visit Plan Assessment of pelvic floor strength following surgery and EMG biofeedback for pelvic floor strenghtening
--- NOTE | 2024-06-05 16:26 | PT.OPDS ---
Current Diagnoses Outlet dysfunction constipation (09/29/23) Segmental and somatic dysfunction of pelvic region (09/29/23) Female genital prolapse, unspecified (09/29/23) Visit Care Team Role Provider Type PRECIOUS Peace Family Provider Advanced Signalling And Communications Engineer Primary Care Provider Specialty: Family Practice Address: [address], [facility] [place], [address] Email: [email or web address] Kendal Elliott MD Attending Provider Non-Staff Referring Provider Specialty: Colon & Rectal Surgery Address: [address], [address], [address] Email: Visit Number Visit Number 1 Discharge Summary PT-OP-B Current Condition Start: 09/29/23 14:32 Freq: Status: Active Protocol: Document 09/29/23 14:30 [facility] (Rec: 09/29/23 14:56 [facility] [id number]) Current Condition History of Current Condition Onset Date chronic Current Complaints pelvic heaviness and pressure History of Current Condition pt is having surgery to repair the rectocele and cystocele December 01 at [facility]. She has a follow up with her MD a week after her surgery. Every morning she takes a large teaspoon of calm and a probiotic. This helps her every morning to empty her bowels. She will take 4-6 weeks off work as her job is a standing job. Treatment Goals Patient/Caregiver Goals pt wants to go back to playing pickle ball PT-OP-C Subjective Start: 09/29/23 14:32 Freq: Status: Active Protocol: Document 09/29/23 14:30 [facility] (Rec: 10/11/23 09:57 [facility] [id number]) Patient Questionnaires Pelvic Pain and Urgency/Frequency Patient Symptom Scale Pelvic Pain Score 4 PT-OP-I Pelvic Floor Start: 09/29/23 14:32 Freq: Status: Active Protocol: Document 09/29/23 14:30 [facility] (Rec: 10/11/23 10:05 [facility] [id number]) Pelvic Floor Assessment Urine Pelvic Floor Surgery hysterectomy Other Urinary Symptoms pelvic heaviness and pressure with pelvic organ prolpase and leakage with strong cough and or sneeze PT-OP-T Assessment and Plan Start: 09/29/23 14:32 Freq: Status: Active Protocol: Document 06/05/24 16:25 [facility] (Rec: 06/05/24 16:26 [facility] [id number]) Physical Therapy Assessment Assessment Summary Assessment Mireya will be discharged at this time as she has a new referral set up to begin PT Physical Therapy Plan Discharge Physical Therapy Discharge Reasons No Longer Attending PT
== END 2024-06-11 12:38 ==
LOC: PHYS 14:11
PROVIDERS: Family Provider Internal Medicine; PCP Internal Medicine; Referring Provider Colon & Rectal Surgery; Visit Provider Colon & Rectal Surgery
DX: N81.9 Female genital prolapse, unspecified (principal); M99.05 Segmental and somatic dysfunction of pelvic region; K59.02 Outlet dysfunction constipation
CPT/HCPCS: 97161

== ENCOUNTER 2024-07-26 09:45 | Outpatient (RCR) | payer MEDICARE, OTHER, SELFPAY ==
--- NOTE | 2024-06-06 11:04 | PT.OIE ---
Current Diagnoses Female genital prolapse, unspecified (06/21/24) Visit Care Team Role Provider Type PRECIOUS Peace Family Provider Advanced Access Assoc Primary Care Provider Specialty: Family Practice Address: [address] [facility], [place], [address] Email: [email or web address] Johana Estrella MD Attending Provider Non-Staff Referring Provider Specialty: Urology Address: [address] [place] [address], [place], [address] Email: Physical Therapy Initial Evaluation PT-OP-A Visit Information Start: 06/19/24 09:22 Freq: Status: Active Protocol: Document 06/06/24 10:45 [facility] (Rec: 06/19/24 09:42 [facility] [id number]) Out-Patient Physical Therapy Visit Information Visit Information Visit Type Initial Evaluation Visit Start Time 10:45 Visit Stop Time 11:30 Visit Number 1 Evaluation Information Evaluation Date 06/06/24 PT-OP-B Current Condition Start: 06/19/24 09:22 Freq: Status: Active Protocol: Document 06/06/24 10:45 [facility] (Rec: 06/19/24 09:42 [facility] [id number]) Current Condition History of Current Condition Onset Date Surgery date of 04/23/24 History of Current Condition April 23 2024 Mireya underwent prolpase repair. She just had her post up appointment and reports she has no restrictions however she is being careful with not lifting. She reports she is feeling really pretty good but she has had a couple of instances if she waits too long to void she feels that she could have a leak if she sneezed or coughed. She is taking a probiotic that is working really well for bowel movements and takes a teaspoon of calm which also helps keeps her regular. She is wanting to return to pelvic floor strengthening to support her surgery. PT-OP-C Subjective Start: 06/19/24 09:22 Freq: Status: Active Protocol: Document 06/21/24 09:51 [facility] (Rec: 06/21/24 10:11 [facility] [id number]) OP-PT Subjective Patient Comments Patient Comments pt notes she feels good but she realizes how weak her muscles are, 5 seconds is difficult to sustain at this time. She hasn't had any leaks PT-OP-I Pelvic Floor Start: 06/19/24 09:22 Freq: Status: Active Protocol: Document 06/06/24 10:45 [facility] (Rec: 06/19/24 09:42 [facility] [id number]) Pelvic Floor Assessment Urine Pelvic Floor Surgery Yes Leakage Cause Cough,Sneeze Pelvic Clock Pelvic Clock 12-3 Atrophy Pelvic Clock 3-6 Atrophy Pelvic Clock 6-9 Atrophy Pelvic Clock 9-12 Atrophy Contraction Ability Voluntary Contraction Weak Voluntary Relaxation Weak Manual Muscle Testing Left 2 Manual Muscle Testing Right 2 Manual Muscle Testing Anterior 2 Manual Muscle Testing Posterior 2 Muscle Endurance (Seconds) 4 PT-OP-Q Treatments Start: 06/19/24 09:22 Freq: Status: Active Protocol: Document 06/06/24 10:45 [facility] (Rec: 06/19/24 09:42 [facility] [id number]) Therapeutic Exercises Supine Exercises pelvic floor long holds Reps/Minutes 10 reps holding 10 sec each and relaxing 10 seconds ball squeeze with pelvic floor activation Reps/Minutes 10 reps holding 10 seconds PT-OP-T Assessment and Plan Start: 06/19/24 09:22 Freq: Status: Active Protocol: Document 06/06/24 10:45 [facility] (Rec: 06/19/24 09:42 [facility] [id number]) Physical Therapy Assessment Rehab Potential Rehabilitation Potential Excellent Evaluation Complexity Number of Personal Factors/Comorbidities 0 Number of Body Systems Impaired 1-2 Clinical Presentation at Evaluation Stable Impairments Impairments Activity Tolerance,Soft Tissue Mobility,Strength,Tone Goals Four Impairment pt has not been able to return to her aquatic exercise class since prior to surgery due to the pelvic pressure it was causing her. Television Maintenance Man Goal (LTG) Mireya is able to return to aquatic exercise program with good core support LTG Duration 12 weeks Three Impairment Urinary stress incontinencne if Mireya has a full bladder Television Maintenance Man Goal (LTG) With improved strength of the pelvic floor Mireya reports she is no longer experience any urinary stress incontinence symptoms LTG Duration 12 weeks Two Impairment pelvic floor weakness s/p anterior posterior repair Short Term Goal (STG) Mireya is educated on a HEP for pelvic floor and core strengtheing STG Duration 4 weeks Television Maintenance Man Goal (LTG) Mireya is able to increase her pelvic floor muscle strength to 3/5 MMT or better LTG Duration 12 weeks One Impairment Decreased endurance of the pelvic floor Short Term Goal (STG) Mireya is able to sustain a pelvic floor contraction in supine x 10 seconds STG Duration 4 weeks Television Maintenance Man Goal (LTG) Mireya is able to sustain a pelvic floor contraction in standing x 5 seconds LTG Duration 8 weeks Assessment Summary Assessment Mireya presents to Physical Therapy today s/p anterior posterior repair on 04/23/2024. She is feeling much better overall and she is referred to PT for pelvic floor strengthening post surgery. Mireya reports she is no longer feeling the pelvic pressure and heaviness. She is leaking with strong cough or sneeze if she waits to long to void. She will wet through her underwear if she leaks. With pelvic floor exam Mireya is able to facilitate all aspects of the levator ani. She tests 2/5 MMT for all villanueva of the levator ani. Physical Therapy Plan Frequency and Duration Frequency of Treatment 1x/Week Duration of treatment (weeks) 12 Plan of Care Start Date 06/06/24 Plan of Care End Date 08/29/24 Therapeutic Interventions Therapeutic Interventions Home Exercise Program, Neuromuscular Re-education, Patient/Caregiver Education, Self-Care/Home Management, Therapeutic Exercises Modalities Biofeedback Next Visit Focus/Plan Next Note Type Treatment Note Next Visit Plan Pelvic floor strength and endurance training, core stabilization exercises
--- NOTE | 2024-06-06 11:05 | PT.OPPOC ---
Physical, Occupational & Speech Therapy At [facility] Current Diagnoses Female genital prolapse, unspecified (06/21/24) Visit Care Team Role Provider Type PRECIOUS Peace Family Provider Advanced Cigar Packing Examiner Primary Care Provider Specialty: Family Practice Address: [facility], [facility] [place], [address] Email: [email or web address] Johana Estrella MD Attending Provider Non-Staff Referring Provider Specialty: Urology Address: [address] [place] [address], [place], [address] Email: Plan Of Care PT-OP-B Current Condition Start: 06/19/24 09:22 Freq: Status: Active Protocol: Document 06/06/24 10:45 [facility] (Rec: 06/19/24 09:42 [facility] [id number]) Current Condition History of Current Condition Onset Date Surgery date of 04/23/24 History of Current Condition April 23 2024 Mireya underwent prolapse repair. She just had her post up appointment and reports she has no restrictions however she is being careful with not lifting. She reports she is feeling really pretty good but she has had a couple of instances if she waits too long to void she feels that she could have a leak if she sneezed or coughed. She is taking a probiotic that is working really well for bowel movements and takes a teaspoon of calm which also helps keeps her regular. She is wanting to return to pelvic floor strengthening to support her surgery. PT-OP-T Assessment and Plan Start: 06/19/24 09:22 Freq: Status: Active Protocol: Document 06/06/24 10:45 [facility] (Rec: 06/19/24 09:42 [facility] [id number]) Physical Therapy Assessment Rehab Potential Rehabilitation Potential Excellent Evaluation Complexity Number of Personal Factors/Comorbidities 0 Number of Body Systems Impaired 1-2 Clinical Presentation at Evaluation Stable Impairments Impairments Activity Tolerance,Soft Tissue Mobility,Strength,Tone Goals Four Impairment pt has not been able to return to her aquatic exercise class since prior to surgery due to the pelvic pressure it was causing her. Snf Goal (LTG) Mireya is able to return to aquatic exercise program with good core support LTG Duration 12 weeks Three Impairment Urinary stress incontinence if Mireya has a full bladder Manager Training Goal (LTG) With improved strength of the pelvic floor Mireya reports she is no longer experience any urinary stress incontinence symptoms LTG Duration 12 weeks Two Impairment pelvic floor weakness s/p anterior posterior repair Short Term Goal (STG) Mireya is educated on a HEP for pelvic floor and core strengthening STG Duration 4 weeks Manager Training Goal (LTG) Mireya is able to increase her pelvic floor muscle strength to 3/5 MMT or better LTG Duration 12 weeks One Impairment Decreased endurance of the pelvic floor Short Term Goal (STG) Mireya is able to sustain a pelvic floor contraction in supine x 10 seconds STG Duration 4 weeks Snf Goal (LTG) Mireya is able to sustain a pelvic floor contraction in standing x 5 seconds LTG Duration 8 weeks Assessment Summary Assessment Mireya presents to Physical Therapy today s/p anterior posterior repair on 04/23/2024. She is feeling much better overall and she is referred to PT for pelvic floor strengthening post surgery. Mireya reports she is no longer feeling the pelvic pressure and heaviness. She is leaking with strong cough or sneeze if she waits to long to void. She will wet through her underwear if she leaks. With pelvic floor exam Mireya is able to facilitate all aspects of the levator ani. She tests 2/5 MMT for all villanueva of the levator ani. Physical Therapy Plan Frequency and Duration Frequency of Treatment 1x/Week Duration of treatment (weeks) 12 Plan of Care Start Date 06/06/24 Plan of Care End Date 08/29/24 Therapeutic Interventions Therapeutic Interventions Home Exercise Program, Neuromuscular Re-education, Patient/Caregiver Education, Self-Care/Home Management, Therapeutic Exercises Modalities Biofeedback Next Visit Focus/Plan Next Note Type Treatment Note Next Visit Plan Pelvic floor strength and endurance training, core stabilization exercises Plan of Care Dates Plan of Care Start Date 06/06/24 Plan of Care End Date 08/29/24 Electronically Signed by: Lorena Gaffney, PT 06/21/24 0486 If you are in agreement with this Plan of Care, please return a signed and dated copy. I have reviewed this Plan of Care and certify that the skilled therapy services above are required to meet the patient?s needs. Physician Signature Date Printed Name and Credentials Clinical Instructor Signature Printed Name and Credentials
--- NOTE | 2024-06-21 11:16 | PT.OTN ---
Current Diagnoses Female genital prolapse, unspecified (06/21/24) Physical Therapy Treatment Note PT-OP-A Visit Information Start: 06/19/24 09:22 Freq: Status: Active Protocol: Document 06/21/24 11:12 [facility] (Rec: 06/21/24 11:16 [facility] [id number]) Out-Patient Physical Therapy Visit Information Visit Information Visit Type Treatment Note Visit Start Time 09:45 Visit Stop Time 10:30 Visit Number 2 Evaluation Information Evaluation Date 06/06/24 PT-OP-B Current Condition Start: 06/19/24 09:22 Freq: Status: Active Protocol: Document 06/06/24 10:45 [facility] (Rec: 06/19/24 09:42 [facility] [id number]) Current Condition History of Current Condition Onset Date Surgery date of 04/23/24 History of Current Condition April 23 2024 Mireya underwent prolpase repair. She just had her post up appointment and reports she has no restrictions however she is being careful with not lifting. She reports she is feeling really pretty good but she has had a couple of instances if she waits too long to void she feels that she could have a leak if she sneezed or coughed. She is taking a probiotic that is working really well for bowel movements and takes a teaspoon of calm which also helps keeps her regular. She is wanting to return to pelvic floor strengthening to support her surgery. PT-OP-C Subjective Start: 06/19/24 09:22 Freq: Status: Active Protocol: Document 06/21/24 09:51 [facility] (Rec: 06/21/24 10:11 [facility] [id number]) OP-PT Subjective Patient Comments Patient Comments pt notes she feels good but she realizes how weak her muscles are, 5 seconds is difficult to sustain at this time. She hasn't had any leaks PT-OP-I Pelvic Floor Start: 06/19/24 09:22 Freq: Status: Active Protocol: Document 06/06/24 10:45 [facility] (Rec: 06/19/24 09:42 [facility] [id number]) Pelvic Floor Assessment Urine Pelvic Floor Surgery Yes Leakage Cause Cough,Sneeze Pelvic Clock Pelvic Clock 12-3 Atrophy Pelvic Clock 3-6 Atrophy Pelvic Clock 6-9 Atrophy Pelvic Clock 9-12 Atrophy Contraction Ability Voluntary Contraction Weak Voluntary Relaxation Weak Manual Muscle Testing Left 2 Manual Muscle Testing Right 2 Manual Muscle Testing Anterior 2 Manual Muscle Testing Posterior 2 Muscle Endurance (Seconds) 4 PT-OP-Q Treatments Start: 06/19/24 09:22 Freq: Status: Active Protocol: Document 06/21/24 11:12 [facility] (Rec: 06/21/24 11:16 [facility] [id number]) Therapeutic Exercises Supine Exercises quick flicks Reps/Minutes 10 reps pelvic floor long holds Reps/Minutes 10 reps holding 10 sec each and relaxing 10 seconds ball squeeze with pelvic floor activation Reps/Minutes 10 reps holding 10 seconds Sidelying Exercises clam shells Reps/Minutes 2 x 10 Self-Care/Home Management Treatment Education Patient Education Home Exercise Program Other Education education on exercises to do in the pool including water walking, side steps, squats, and lateral leg raises at side of pool all at her own pace without jumping at this time PT-OP-T Assessment and Plan Start: 06/19/24 09:22 Freq: Status: Active Protocol: Document 06/21/24 11:12 [facility] (Rec: 06/21/24 11:16 [facility] [id number]) Physical Therapy Assessment Assessment Summary Assessment Mireya is doing better this week, no complaints of leakage . Endurance is limited as she is around 5 sec hold time and does fatigue. This will continue to improve. I added in quick pelvic floor and clam shells to HEP Physical Therapy Plan Frequency and Duration Frequency of Treatment 1x/Week Duration of treatment (weeks) 12 Plan of Care Start Date 06/06/24 Plan of Care End Date 08/29/24 Therapeutic Interventions Therapeutic Interventions Home Exercise Program, Neuromuscular Re-education, Patient/Caregiver Education, Self-Care/Home Management, Therapeutic Exercises Modalities Biofeedback Next Visit Focus/Plan Next Note Type Treatment Note Next Visit Plan review new exercises given today, add in a piriformis stretch and modified squat stretch for the pelvic floor in supine as Mireya was tight in her hips today. Continue working on endurance holds of the pelvic floor
--- NOTE | 2024-06-27 13:34 | PT.OTN ---
Current Diagnoses Female genital prolapse, unspecified (06/27/24) Physical Therapy Treatment Note PT-OP-A Visit Information Start: 06/19/24 09:22 Freq: Status: Active Protocol: Document 06/27/24 08:27 [facility] (Rec: 06/27/24 08:59 [facility] [id number]) Out-Patient Physical Therapy Visit Information Visit Information Visit Type Treatment Note Visit Start Time 08:22 Visit Stop Time 09:00 Visit Number 3 PT-OP-B Current Condition Start: 06/19/24 09:22 Freq: Status: Active Protocol: Document 06/06/24 10:45 [facility] (Rec: 06/19/24 09:42 [facility] [id number]) Current Condition History of Current Condition Onset Date Surgery date of 04/23/24 History of Current Condition April 23 2024 Mireya underwent prolpase repair. She just had her post up appointment and reports she has no restrictions however she is being careful with not lifting. She reports she is feeling really pretty good but she has had a couple of instances if she waits too long to void she feels that she could have a leak if she sneezed or coughed. She is taking a probiotic that is working really well for bowel movements and takes a teaspoon of calm which also helps keeps her regular. She is wanting to return to pelvic floor strengthening to support her surgery. PT-OP-C Subjective Start: 06/19/24 09:22 Freq: Status: Active Protocol: Document 06/27/24 08:27 [facility] (Rec: 06/27/24 08:59 [facility] [id number]) OP-PT Subjective Patient Comments Patient Comments pt has been working on her exercises, she can tell she fatigue quicker but overall she is working on her exercises as home. No leakage . She sneezed and did not leak. PT-OP-I Pelvic Floor Start: 06/19/24 09:22 Freq: Status: Active Protocol: Document 06/06/24 10:45 [facility] (Rec: 06/19/24 09:42 [facility] [id number]) Pelvic Floor Assessment Urine Pelvic Floor Surgery Yes Leakage Cause Cough,Sneeze Pelvic Clock Pelvic Clock 12-3 Atrophy Pelvic Clock 3-6 Atrophy Pelvic Clock 6-9 Atrophy Pelvic Clock 9-12 Atrophy Contraction Ability Voluntary Contraction Weak Voluntary Relaxation Weak Manual Muscle Testing Left 2 Manual Muscle Testing Right 2 Manual Muscle Testing Anterior 2 Manual Muscle Testing Posterior 2 Muscle Endurance (Seconds) 4 PT-OP-Q Treatments Start: 06/19/24 09:22 Freq: Status: Active Protocol: Document 06/27/24 08:27 [facility] (Rec: 06/27/24 08:59 [facility] [id number]) Therapeutic Exercises Supine Exercises piriformis stretch Reps/Minutes hold 30 seconds x 2 quick flicks Reps/Minutes 10 reps pelvic floor long holds Supine Exercise Name 0.0 resting tone Comments 4.7 snf max of 9.5 ball squeeze with pelvic floor activation Reps/Minutes 10 reps holding 10 seconds Comments 10.2 average and 19.8 max Sidelying Exercises clam shells Reps/Minutes 2 x 10 Self-Care/Home Management Treatment Education Patient Education Home Exercise Program Other Education pt HEP updated and pt given a piriformis stretch for home PT-OP-T Assessment and Plan Start: 06/19/24 09:22 Freq: Status: Active Protocol: Document 06/27/24 08:27 [facility] (Rec: 06/27/24 08:59 [facility] [id number]) Physical Therapy Assessment Assessment Summary Assessment Mireya is doing well with pelvic floor strengthening s/o surgery. Endurance is improving. SHe is tight in her lateral hips but clam shells were easier today as compared to last week. I added in piriformis stretches to HEP Physical Therapy Plan Frequency and Duration Frequency of Treatment 1x/Week Duration of treatment (weeks) 12 Plan of Care Start Date 06/06/24 Plan of Care End Date 08/29/24 Therapeutic Interventions Therapeutic Interventions Home Exercise Program, Neuromuscular Re-education, Patient/Caregiver Education, Self-Care/Home Management, Therapeutic Exercises Modalities Biofeedback Next Visit Focus/Plan Next Note Type Treatment Note Next Visit Plan review new exercises given today, add in a piriformis stretch and modified squat stretch for the pelvic floor in supine as Mireya was tight in her hips today. Continue working on endurance holds of the pelvic floor
--- NOTE | 2024-07-19 11:35 | PT.OTN ---
Current Diagnoses Female genital prolapse, unspecified (07/19/24) Physical Therapy Treatment Note PT-OP-A Visit Information Start: 06/19/24 09:22 Freq: Status: Active Protocol: Document 07/19/24 10:52 [facility] (Rec: 07/19/24 11:35 [facility] [id number]) Out-Patient Physical Therapy Visit Information Visit Information Visit Type Treatment Note Visit Start Time 10:50 Visit Stop Time 11:30 Visit Number 4 PT-OP-B Current Condition Start: 06/19/24 09:22 Freq: Status: Active Protocol: Document 06/06/24 10:45 [facility] (Rec: 06/19/24 09:42 [facility] [id number]) Current Condition History of Current Condition Onset Date Surgery date of 04/23/24 History of Current Condition April 23 2024 Mireya underwent prolpase repair. She just had her post up appointment and reports she has no restrictions however she is being careful with not lifting. She reports she is feeling really pretty good but she has had a couple of instances if she waits too long to void she feels that she could have a leak if she sneezed or coughed. She is taking a probiotic that is working really well for bowel movements and takes a teaspoon of calm which also helps keeps her regular. She is wanting to return to pelvic floor strengthening to support her surgery. PT-OP-C Subjective Start: 06/19/24 09:22 Freq: Status: Active Protocol: Document 07/19/24 10:52 [facility] (Rec: 07/19/24 11:35 [facility] [id number]) OP-PT Subjective Patient Comments Patient Comments pt notes she is feeling good, she has been doing her exercises 1 time per day she had one tiny little leak and she caught it right away PT-OP-I Pelvic Floor Start: 06/19/24 09:22 Freq: Status: Active Protocol: Document 06/06/24 10:45 [facility] (Rec: 06/19/24 09:42 [facility] [id number]) Pelvic Floor Assessment Urine Pelvic Floor Surgery Yes Leakage Cause Cough,Sneeze Pelvic Clock Pelvic Clock 12-3 Atrophy Pelvic Clock 3-6 Atrophy Pelvic Clock 6-9 Atrophy Pelvic Clock 9-12 Atrophy Contraction Ability Voluntary Contraction Weak Voluntary Relaxation Weak Manual Muscle Testing Left 2 Manual Muscle Testing Right 2 Manual Muscle Testing Anterior 2 Manual Muscle Testing Posterior 2 Muscle Endurance (Seconds) 4 PT-OP-Q Treatments Start: 06/19/24 09:22 Freq: Status: Active Protocol: Document 07/19/24 10:52 [facility] (Rec: 07/19/24 11:35 [facility] [id number]) Therapeutic Exercises Supine Exercises piriformis stretch Reps/Minutes hold 30 seconds x 2 quick flicks Reps/Minutes 10 reps Comments 8.2 pelvic floor long holds Reps/Minutes 10 reps holding 10 sec each and relaxing 10 seconds Comments 6.1 uv and max of 9.8 uv Sidelying Exercises clam shells Reps/Minutes 2 x 10 Self-Care/Home Management Treatment Education Patient Education Home Exercise Program Other Education review of HEP and we discussed when to fit exercises in at home PT-OP-T Assessment and Plan Start: 06/19/24 09:22 Freq: Status: Active Protocol: Document 07/19/24 10:52 [facility] (Rec: 07/19/24 11:35 [facility] [id number]) Physical Therapy Assessment Goals Four Impairment pt has not been able to return to her aquatic exercise class since prior to surgery due to the pelvic pressure it was causing her. 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 Short Term Goal (STG) Mireya is educated on a HEP for pelvic floor and core strengtheing STG Duration 4 weeks Mcc Goal (LTG) Mireya is able to increase her pelvic floor muscle strength to 3/5 MMT or better LTG Duration 12 weeks One Impairment Decreased endurance of the pelvic floor Short Term Goal (STG) Mireya is able to sustain a pelvic floor contraction in supine x 10 seconds STG Duration 4 weeks Mcc Goal (LTG) Mireya is able to sustain a pelvic floor contraction in standing x 5 seconds LTG Duration 8 weeks Assessment Summary Assessment Mireya is showing progress with pelvic floor endurance and strength and is feeling strong . She is still tight with hip ER and calm shells feels tight but they are improving for her Physical Therapy Plan Frequency and Duration Frequency of Treatment 1x/Week Duration of treatment (weeks) 12 Plan of Care Start Date 06/06/24 Plan of Care End Date 08/29/24 Therapeutic Interventions Therapeutic Interventions Home Exercise Program, Neuromuscular Re-education, Patient/Caregiver Education, Self-Care/Home Management, Therapeutic Exercises Modalities Biofeedback
--- NOTE | 2024-07-26 10:41 | PT.OTN ---
Current Diagnoses Female genital prolapse, unspecified (07/26/24) Physical Therapy Treatment Note PT-OP-A Visit Information Start: 06/19/24 09:22 Freq: Status: Active Protocol: Document 07/26/24 09:47 [facility] (Rec: 07/26/24 10:41 [facility] [id number]) Out-Patient Physical Therapy Visit Information Visit Information Visit Type Treatment Note Visit Start Time 09:45 Visit Stop Time 10:30 Visit Number 5 PT-OP-B Current Condition Start: 06/19/24 09:22 Freq: Status: Active Protocol: Document 06/06/24 10:45 [facility] (Rec: 06/19/24 09:42 [facility] [id number]) Current Condition History of Current Condition Onset Date Surgery date of 04/23/24 History of Current Condition April 23 2024 Mireya underwent prolpase repair. She just had her post up appointment and reports she has no restrictions however she is being careful with not lifting. She reports she is feeling really pretty good but she has had a couple of instances if she waits too long to void she feels that she could have a leak if she sneezed or coughed. She is taking a probiotic that is working really well for bowel movements and takes a teaspoon of calm which also helps keeps her regular. She is wanting to return to pelvic floor strengthening to support her surgery. PT-OP-C Subjective Start: 06/19/24 09:22 Freq: Status: Active Protocol: Document 07/26/24 09:47 [facility] (Rec: 07/26/24 10:41 [facility] [id number]) OP-PT Subjective Patient Comments Patient Comments pt was much better with her exercise this week PT-OP-I Pelvic Floor Start: 06/19/24 09:22 Freq: Status: Active Protocol: Document 06/06/24 10:45 [facility] (Rec: 06/19/24 09:42 [facility] [id number]) Pelvic Floor Assessment Urine Pelvic Floor Surgery Yes Leakage Cause Cough,Sneeze Pelvic Clock Pelvic Clock 12-3 Atrophy Pelvic Clock 3-6 Atrophy Pelvic Clock 6-9 Atrophy Pelvic Clock 9-12 Atrophy Contraction Ability Voluntary Contraction Weak Voluntary Relaxation Weak Manual Muscle Testing Left 2 Manual Muscle Testing Right 2 Manual Muscle Testing Anterior 2 Manual Muscle Testing Posterior 2 Muscle Endurance (Seconds) 4 PT-OP-Q Treatments Start: 06/19/24 09:22 Freq: Status: Active Protocol: Document 07/26/24 09:47 [facility] (Rec: 07/26/24 10:41 [facility] [id number]) Therapeutic Exercises Supine Exercises templates for eccentric conrol and coordination Reps/Minutes 8 min piriformis stretch Reps/Minutes hold 30 seconds x 2 quick flicks Reps/Minutes 10 reps Comments 8.2 pelvic floor long holds Reps/Minutes 10 reps holding 10 sec each and relaxing 10 seconds Comments 8.8 uv and max of 18.3 ball squeeze with pelvic floor activation Reps/Minutes 10 reps holding 10 seconds Comments average of 16 and max of 29 Sidelying Exercises clam shells Reps/Minutes 2 x 10 PT-OP-T Assessment and Plan Start: 06/19/24 09:22 Freq: Status: Active Protocol: Document 07/26/24 09:47 [facility] (Rec: 07/26/24 10:41 [facility] [id number]) Physical Therapy Assessment Assessment Summary Assessment Mireya is showing great progress with week and has increased both her endurance and max contraction of the pelvic floor. She has one visit left prior to discharge Physical Therapy Plan Frequency and Duration Frequency of Treatment 1x/Week Duration of treatment (weeks) 12 Plan of Care Start Date 06/06/24 Plan of Care End Date 08/29/24 Therapeutic Interventions Therapeutic Interventions Home Exercise Program, Neuromuscular Re-education, Patient/Caregiver Education, Self-Care/Home Management, Therapeutic Exercises Modalities Biofeedback Next Visit Focus/Plan Next Note Type Treatment Note Next Visit Plan review all established exercises and stretches for HEP as this will be Mireya's last PT visit
--- NOTE | 2024-08-23 09:16 | PT.OPDS ---
Current Diagnoses Female genital prolapse, unspecified (07/26/24) Visit Care Team Role Provider Type PRECIOUS [facility] Provider Advanced Fermentologist Primary Care Provider Specialty: Family Practice Address: [address] [facility], [facility] [place], [address] Email: [email or web address] Johana Estrella MD Attending Provider Non-Staff Referring Provider Specialty: Urology Address: [address] [place] [address], [place], [address] Email: Visit Number Visit Number 5 Discharge Summary PT-OP-B Current Condition Start: 06/19/24 09:22 Freq: Status: Active Protocol: Document 06/06/24 10:45 [facility] (Rec: 06/19/24 09:42 [facility] [id number]) Current Condition History of Current Condition Onset Date Surgery date of 04/23/24 History of Current Condition April 23 2024 Mireya underwent prolpase repair. She just had her post up appointment and reports she has no restrictions however she is being careful with not lifting. She reports she is feeling really pretty good but she has had a couple of instances if she waits too long to void she feels that she could have a leak if she sneezed or coughed. She is taking a probiotic that is working really well for bowel movements and takes a teaspoon of calm which also helps keeps her regular. She is wanting to return to pelvic floor strengthening to support her surgery. PT-OP-C Subjective Start: 06/19/24 09:22 Freq: Status: Active Protocol: Document 07/26/24 09:47 [facility] (Rec: 07/26/24 10:41 [facility] [id number]) OP-PT Subjective Patient Comments Patient Comments pt was much better with her exercise this week PT-OP-I Pelvic Floor Start: 06/19/24 09:22 Freq: Status: Active Protocol: Document 06/06/24 10:45 [facility] (Rec: 06/19/24 09:42 [facility] [id number]) Pelvic Floor Assessment Urine Pelvic Floor Surgery Yes Leakage Cause Cough,Sneeze Pelvic Clock Pelvic Clock 12-3 Atrophy Pelvic Clock 3-6 Atrophy Pelvic Clock 6-9 Atrophy Pelvic Clock 9-12 Atrophy Contraction Ability Voluntary Contraction Weak Voluntary Relaxation Weak Manual Muscle Testing Left 2 Manual Muscle Testing Right 2 Manual Muscle Testing Anterior 2 Manual Muscle Testing Posterior 2 Muscle Endurance (Seconds) 4 PT-OP-T Assessment and Plan Start: 06/19/24 09:22 Freq: Status: Active Protocol: Document 08/23/24 09:14 [facility] (Rec: 08/23/24 09:16 [facility] [id number]) Physical Therapy Assessment Goals Four Impairment pt has not been able to return to her aquatic exercise class since prior to surgery due to the pelvic pressure it was causing her. Photographic Machine Operator Goal (LTG) Mireya is able to return to aquatic exercise program with good core support goal met LTG Duration 12 weeks Three Impairment Urinary stress incontinencne if Mireya has a full bladder Usp Goal (LTG) With improved strength of the pelvic floor Mireya reports she is no longer experience any urinary stress incontinence symptoms as of 07/19/23 Mireya reports a overall reduction of urinary leakage and she is finding she is able to brace with her pelvic floor prior to a sneeze goal met LTG Duration 12 weeks Two Impairment pelvic floor weakness s/p anterior posterior repair Short Term Goal (STG) Mireya is educated on a HEP for pelvic floor and core strengtheing STG Duration 4 weeks Photographic Machine Operator Goal (LTG) Mireya is able to increase her pelvic floor muscle strength to 3/5 MMT or better goal met LTG Duration 12 weeks One Impairment Decreased endurance of the pelvic floor Short Term Goal (STG) Mireya is able to sustain a pelvic floor contraction in supine x 10 seconds goal met STG Duration 4 weeks Photographic Machine Operator Goal (LTG) Mireya is able to sustain a pelvic floor contraction in standing x 5 seconds LTG Duration 8 weeks Assessment Summary Assessment Mireya has shown great overall progress in PT and both pelvic floor strength and endurance have greatly improved. She will be discharged at this time to a [facility] Physical Therapy Plan Discharge Physical Therapy Discharge Reasons Goals Met
== END 2024-08-23 16:40 | disposition home or self-care (01) ==
LOC: PHYS 09:45
PROVIDERS: Family Provider Internal Medicine; PCP Internal Medicine; Referring Provider Urology; Visit Provider Urology
DX: N81.9 Female genital prolapse, unspecified (principal)
CPT/HCPCS: 97110; 97161; 97535